=== PATIENT | female | born 1965 | race Caucasian/White ===

== ENCOUNTER → 2019-10-15 11:44 | Outpatient (BNVA) | payer MEDICARE, SELFPAY | PROVIDERS: Visit Provider Family Medicine | DX: K52.9 Noninfective gastroenteritis and colitis, unspecified (principal) | CPT/HCPCS: 80048 ==

== ENCOUNTER 2019-11-17 11:54 | Outpatient (CLI) | payer MEDICARE, SELFPAY ==
--- NOTE | 2019-11-17 12:07 | XR_ITS ---
WS: [id number] RIGHT SHOULDER: 3 VIEW(S) TECHNIQUE: Internal and external rotation with Y view. HISTORY: right shoulder pain COMPARISON: None available. No fracture or dislocation or soft tissue abnormality. Very mild early erosive and lytic changes involving the distal clavicle. Mild narrowing of the joint space. XR/XR shoulder RT min 2V* [id number] IMPRESSION: Mild AC joint degenerative changes.
== END 2019-11-17 11:55 | disposition home or self-care (01) ==
LOC: RADWPI 12:00
PROVIDERS: PCP Family Medicine; Visit Provider Family Medicine
DX: M25.511 Pain in right shoulder (principal)
CPT/HCPCS: 73030

== ENCOUNTER → 2019-12-17 11:48 | Outpatient (BNVA) | payer MEDICARE, SELFPAY | PROVIDERS: PCP Family Medicine; Visit Provider Family Medicine | DX: M62.838 Other muscle spasm (principal) | CPT/HCPCS: 80048 ==

== ENCOUNTER → 2020-03-29 11:31 | Outpatient (BNVA) | payer MEDICARE, SELFPAY | PROVIDERS: PCP Family Medicine; Visit Provider Nurse Practitioner Family | DX: J06.9 Acute upper respiratory infection, unspecified (principal); R53.83 Other fatigue; Z20.828 Contact with and (suspected) exposure to other viral communicable diseases | CPT/HCPCS: 87635 ==

== ENCOUNTER → 2020-07-14 15:35 | Outpatient (BNVA) | payer MEDICARE, SELFPAY | PROVIDERS: PCP Family Medicine; Visit Provider Family Medicine | DX: R10.11 Right upper quadrant pain (principal); R07.89 Other chest pain | CPT/HCPCS: 71046 ==

== ENCOUNTER 2020-07-24 19:27 | Observation (INO) | payer MEDICARE, SELFPAY ==
[2020-07-24] VITALS (8 sets, daily range): BP systolic 112–158; BP diastolic 62–88; PULSE 65–107; RESP 14–23; TEMP 36.3; O2SAT 96–98; BMI 30.1
--- NOTE | 2020-07-24 19:38 | XRR_ITS ---
PROCEDURE INFORMATION: Exam: XR Chest, 1 View Exam date and time: 07/24/2020 7:49 PM Age: 54 years old Clinical indication: Left-sided chest pain TECHNIQUE: Imaging protocol: XR of the chest Views: 1 view. COMPARISON: CR XR chest 2V* [id number] 07/14/2020 3:40 PM FINDINGS: Lungs: There is minimal streaky opacity at the right lung base. Pleural space: Unremarkable. No pleural effusion. No pneumothorax. Heart/Mediastinum: There is a benign left pericardial fat pad also seen on the prior study. Vasculature: There are incidental benign calcified granulomas versus vessels seen en face at the perihilar regions. Bones/joints: Unremarkable. XR/XR chest 1V portable [id number] IMPRESSION: Minimal streaky opacity at the right lung base is nonspecific. Differential includes atelectasis and pneumonia.
--- NOTE | 2020-07-24 19:39 | ED_ITS ---
HPI - Chest Pain General: Chief Complaint: Chest Pain Stated Complaint: L shoulder,neck,jaw pain,SOB Time Seen by Provider: 07/24/20 19:32 Source: patient Limitations: no limitations History of Present Illness: HPI narrative: Emelia is a very nice 54-year-old female who comes in with a complaint of chest pressure and sharp pain in her left shoulder, jaw, neck and arm. Patient states she had mild symptoms yesterday. Today her onset was while she was eating supper. She states the pain is an 8 out of 10. She has associated shortness of breath and nausea. Since the pain started tonight it has been constant and waxes and wanes in intensity. She states her symptoms are made worse by exertion and slightly better with rest. Patient's not tried anything else for her symptoms. Patient states she had similar symptoms yesterday but they were not as severe and lasted a very short amount time. Patient does admit to being a smoker and having a strong family history of heart disease. Associated symptoms: Reports dyspnea and nausea; Deny abdominal pain, diaphoresis, fever(s), palpitations, syncope or vomiting Review of Systems Const: Denies: fever(s), chills, body aches, fatigue, malaise or diaphoresis Eyes: Denies: change in vision, blurry vision, photophobia, eye discomfort, eye discharge, eye redness or yellow eyes ENMT: Denies: throat pain, odynophagia, hoarseness, swelling of lips/tongue, ear or mastoid pain, ear discharge, change in hearing or nasal discharge Card: Denies: palpitations, irregular heart rhythm, edema, lightheadedness, syncope, pre-syncope or orthopnea Resp: Reports: dyspnea; Denies: productive cough, non-productive cough, wheezing, hemoptysis or chest congestion GI: Reports: nausea; Denies: abdominal pain, vomiting, hematemesis, coffee ground emesis, heartburn, diarrhea, constipation, GI cramping, hematochezia or melena : Denies: flank pain, dysuria, urinary frequency, urinary urgency or hematuria Musc: Reports: neck pain; Denies: back pain, extremity pain, extremity swelling, joint pain, joint swelling, joint redness, joint warmth or joint stiffness Skin/Breast: Denies: rash, pruritus, erythema, skin pain or skin tenderness Neuro: Denies: headache(s), numbness in extremities, weakness in extremities, sensory changes, lack of coordination, difficulty walking, dizziness, vertigo, confusion, Slurred speech present or seizure-like activity Matt/Lymph: Denies: easy bruising, easy bleeding, petechiae, purpura or enlarged lymph nodes All/Imm: Denies: urticaria, throat swelling, tongue swelling, facial swelling or acute wheezing PFSH ED PFSH: Medical History (Updated 07/24/20 @ 21:01 by Lula Dallas) Chronic cystitis with hematuria Chronic diarrhea Cindi's thyroiditis History of renal stone Inflammatory bowel disease Insomnia Major depressive disorder Muscle cramps Nasal polyps Osteoarthritis PTSD (post-traumatic stress disorder) Surgical History H/O section H/O tubal ligation H/O: hysterectomy History of appendectomy History of bilateral breast reduction surgery Family History Other CAD (coronary artery disease) Cancer Diabetes Multiple sclerosis Social History Smoking and tobacco status: current every day smoker cigarettes Packs smoked per day: 1 Alcohol intake: current Alcohol intake frequency: holidays/special occasions only History of recent travel: No Physical Exam Const: COMMON NORMALS: no acute distress, patient oriented x3, no limitations and alert GENERAL APPEARANCE: cooperative HENMT: COMMON NORMALS: normocephalic, atraumatic, external ears normal, EAC's normal and Normal external nose present HEAD & SCALP: normal to inspection, normocephalic and atraumatic FACE & SINUS: normal facial exam and face symmetric NOSE: Normal external nose present and Normal nares present EXTERNAL EAR: Yes external ears normal EXTERNAL AUDITORY CANAL: EAC's normal MOUTH: Normal oral and palatal mucosa present, lip normal and tongue normal Eye: COMMON NORMALS: Equal, round and reactive pupils present and conjunctivae normal GENERAL EYE: appearance normal, both eyes and all related structures ALIGNMENT: Yes alignment normal PERIORBITAL: periorbital findings normal EYELID: eyelids normal CONJUNCTIVA: Yes conjunctivae normal SCLERA: sclerae normal PUPIL: Yes Equal, round and reactive pupils present Neck/C-Spine: COMMON NORMALS: full ROM, no lymphadenopathy, supple, no meningeal signs and no JVD GENERAL: Yes normal visual inspection and Yes trachea midline Chest: COMMONS NORMALS: normal inspection of the chest and normal palpation of entire chest wall Resp: COMMON NORMALS: normal respiratory effort, No retractions, No use of accessory muscles and clear to auscultation bilaterally EFFORT & INSPECTION: Yes able to speak in complete sentences and Yes symmetric chest movement AUSCULTATION: clear to auscultation bilaterally, no crackles, no rales, no rhonchi and no wheezes Cardio: COMMON NORMALS: no JVD, regular rate, regular rhythm, S1 normal heart sound present and S2 normal heart sound present RATE: regular rate RHYTHM: regular rhythm HEART SOUNDS: S1 normal heart sound present, S2 normal heart sound present, no click, no gallops, no murmurs and no rubs GI: COMMON NORMALS: Soft to palpation and No hepatosplenomegaly present PALPATION: Yes Soft to palpation, No Tenderness to palpation present (GI), No Guarding due to palpation present (GI), No Rigid due to palpation, Yes No hepatosplenomegaly present, No Hernia present, No Palpable mass present and No Pulsatile mass present : COMMON NORMALS: Yes no CVA tenderness BLADDER/KIDNEY EXAM: Yes no CVA tenderness EXTERNAL FEMALE EXAM: No Hernia present Back/Pelvis: COMMON NORMALS: no CVA tenderness, thoracic and lumbar spine normal to inspection, no thoracic nor lumbar tenderness and thoraco-lumbar ROM normal Extremity: COMMON NORMALS: normal to inspection, full ROM, capillary refill normal, no joint enlargement, no clubbing, cyanosis or edema and no calf tenderness Neuro: COMMON NORMALS: patient oriented x3, CN's II-XII intact bilaterally, moves all extremities, no focal motor deficits and no sensory deficits noted SENSORIUM/ORIENTATION: Yes alert MENINGEAL SIGNS: Yes no meningeal signs SPEECH: speech normal Psych: COMMON NORMALS: mental status grossly normal, Normal thought process present, cooperative, normal affect, speech normal and activity/motor behavior normal SPEECH: Yes normal speech THOUGHT PROCESS: Normal thought process present Skin: COMMON NORMALS: no rashes or lesions noted, turgor normal, no jaundice, no petechiae and no mottling GENERAL SKIN EXAM: no rashes or lesions noted and turgor normal Course Vital Signs: Vital signs: Vital Signs Temperature 97.3 F L 07/24/20 19:31 Pulse Rate 91 07/24/20 20:20 Respiratory Rate 18 07/24/20 20:20 Blood Pressure 117/87 07/24/20 20:20 Pulse Oximetry 96 07/24/20 20:20 MDM - Chest Pain MDM Narrative: Medical decision making narrative: The patient is had chest pain relief with a combination of aspirin, 3 sublingual nitroglycerin, Nitropaste and 4 of morphine. Patient has a Heart Score of 5. She has a strong family history of early onset heart disease and she is a smoker. She denies hypertension, diabetes or hyperlipidemia. Based upon the patient's new symptoms over the past 2 days this could represent unstable angina. The case was endorsed to Dr. Dye he agrees to go ahead and admit for further evaluation and care. Patient does not have any evidence of pneumonia on her chest x-ray and her symptoms do not suggest an esophageal rupture. Patient's not tachycardic, hypoxic or any other signs or symptoms to suggest pulmonary embolism and there is no migration of her pain or ripping tearing sensation to suggest aortic dissection. I believe acute coronary symptoms most likely issue at this time the patient can be further ruled out and risk stratified on an inpatient basis. Lab Data: Attestation: I reviewed the patient's lab results. Labs: Lab Results 07/24/20 07/24/20 07/24/20 Range/Units 19:44 19:44 19:44 WBC 12.8 H (4.0-10.0) 10^3/ uL RBC 4.57 (4.1-5.3) 10^6/u L Hgb 14.5 (11.5-15.3) g/dL Hct 42.3 (37.0-47.0) % MCV 92.6 (81-99) fL MCH 31.7 (28.0-34.0) pg MCHC 34.3 (30.0-36.0) g/dL RDW 11.8 L (12.1-15.1) % Plt Count 314 (130-400) 10^3/c mm MPV 11.1 H (7.4-10.4) fL Neut % (Auto) 61.7 % Lymph % (Auto) 26.2 % [place] % (Auto) 6.6 % Eos % (Auto) 4.1 % Baso % (Auto) 1.0 % Neut # (Auto) 7.91 H (1.8-7.7) 10^3/u L Lymph # (Auto) 3.4 (0.8-4.8) 10^3/u L [place] # (Auto) 0.9 (0.2-0.9) 10^3/u L Eos # (Auto) 0.5 (0.0-0.8) 10^3/u L Baso # (Auto) 0.1 (0.0-0.1) 10^3/u L Nucleated RBC % (a uto) 0 % Nucleated RBCs # 0.0 /100WBC PT 12.70 (12.1-14.9) SECO NDS INR 0.92 (0.8-1.2) Sodium 141 (136-145) mmol/L Potassium 3.7 (3.5-5.1) mmol/L Chloride 104 (98-107) mmol/L Carbon Dioxide 26 (22-29) mmol/L Anion Gap 14.7 (5-19) BUN 10 (6-20) mg/dL Creatinine 0.6 (0.5-0.9) mg/dL GFR Calculation 103.4 (90-130) mL/min Glucose 96 (65-115) mg/dL Calculated Osmolal ity 291 (285-295) mOsm/k g Calcium 9.7 (8.5-10.5) mg/dL Magnesium 1.7 (1.7-2.3) mg/dL Total Bilirubin 0.2 (0.15-1.2) mg/dL AST 13 (0-32) U/L ALT 14 (0-33) U/L Alkaline Phosphata se 109 H (35-105) IU/L Troponin T Baselin e (0-10) ng/L Total Protein 6.6 (6.6-8.7) g/dL Albumin 4.1 (3.5-5.2) g/dL Globulin 2.5 (1.3-4.6) g/dL Lipase 81 H (13-60) U/L Urine Color (Yellow) Urine Appearance (CLEAR) Urine pH (5-7) Ur Specific Gravit y (1.005-1.030) Urine Protein (Negative) Urine Glucose (UA) (Normal) Urine Ketones (Negative) Urine Blood (Negative) Urine Nitrate (Negative) Urine Bilirubin (Negative) Urine Urobilinogen (Negative) mg/dL Ur Leukocyte Alejandirna ase (Negative) Urine RBC (0-2) /hpf Urine WBC (0-5) /hpf Ur Squamous Epith Cells (0-5) /hpf Amorphous Sediment Urine Bacteria (NONE) /hpf Urine Mucus /hpf 07/24/20 07/24/20 Range/Units 19:44 19:44 WBC (4.0-10.0) 10^3/ uL RBC (4.1-5.3) 10^6/u L Hgb (11.5-15.3) g/dL Hct (37.0-47.0) % MCV (81-99) fL MCH (28.0-34.0) pg MCHC (30.0-36.0) g/dL RDW (12.1-15.1) % Plt Count (130-400) 10^3/c mm MPV (7.4-10.4) fL Neut % (Auto) % Lymph % (Auto) % [place] % (Auto) % Eos % (Auto) % Baso % (Auto) % Neut # (Auto) (1.8-7.7) 10^3/u L Lymph # (Auto) (0.8-4.8) 10^3/u L [place] # (Auto) (0.2-0.9) 10^3/u L Eos # (Auto) (0.0-0.8) 10^3/u L Baso # (Auto) (0.0-0.1) 10^3/u L Nucleated RBC % (a uto) % Nucleated RBCs # /100WBC PT (12.1-14.9) SECO NDS INR (0.8-1.2) Sodium (136-145) mmol/L Potassium (3.5-5.1) mmol/L Chloride (98-107) mmol/L Carbon Dioxide (22-29) mmol/L Anion Gap (5-19) BUN (6-20) mg/dL Creatinine (0.5-0.9) mg/dL GFR Calculation (90-130) mL/min Glucose (65-115) mg/dL Calculated Osmolal ity (285-295) mOsm/k g Calcium (8.5-10.5) mg/dL Magnesium (1.7-2.3) mg/dL Total Bilirubin (0.15-1.2) mg/dL AST (0-32) U/L ALT (0-33) U/L Alkaline Phosphata se (35-105) IU/L Troponin T Baselin e 8 (0-10) ng/L Total Protein (6.6-8.7) g/dL Albumin (3.5-5.2) g/dL Globulin (1.3-4.6) g/dL Lipase (13-60) U/L Urine Color Yellow (Yellow) Urine Appearance Clear (CLEAR) Urine pH 6 (5-7) Ur Specific Gravit y 1.020 (1.005-1.030) Urine Protein Neg (Negative) Urine Glucose (UA) Norm (Normal) Urine Ketones Negative (Negative) Urine Blood 2+ H (Negative) Urine Nitrate Negative (Negative) Urine Bilirubin Neg (Negative) Urine Urobilinogen Norm (Negative) mg/dL Ur Leukocyte Alejandrina ase Negative (Negative) Urine RBC 10-15 H (0-2) /hpf Urine WBC 0-4 H (0-5) /hpf Ur Squamous Epith Cells 0-4 H (0-5) /hpf Amorphous Sediment Not Reportable Urine Bacteria Trace (NONE) /hpf Urine Mucus Trace /hpf Imaging Data^: CXR: Attestation: I personally reviewed and interpreted this imaging study as follows: My impression: No acute cardiopulmonary findings. EKG Data^: EKG 1: Attestation: I personally reviewed and interpreted this EKG as follows: EKG interpretation date: 07/24/20 EKG interpretation time: 19:34 Interpretation: Normal sinus rhythm at 85 beats a minute, no blocks, normal intervals, nonspecific ST-T wave changes inferiorly and in V4 through V6. Discharge Plan Discharge Patient Disposition: Placed in Observation Clinical Impression: Unstable angina pectoris Condition: Stable Prescriptions: No Action albuterol sulfate [ProAir HFA] 90 mcg/actuation HFA aerosol inhaler 2 puff INHALATION Q6H PRN (Reason: shortness of breath or wheezing) Qty: 8.5 RF: 0 cetirizine-pseudoephedrine [Zyrtec-D] 5-120 mg tablet extended release 12 hr 1 tab PO .ONCE DAILY Qty: 30 RF: 0 levothyroxine [Synthroid] 125 mcg tablet 125 mcg PO DAILY RF: 0 estradiol 0.5 mg tablet 0.5 mg PO DAILY RF: 0 baclofen 10 mg tablet 10 mg PO TID RF: 0 Zyrtec 10 mg capsule 10 mg PO DAILY RF: 0 triamcinolone acetonide [Nasacort] 55 mcg aerosol,spray 1 spray INTRANASAL DAILY RF: 0 trazodone 150 mg tablet 100 mg PO .AT BEDTIME RF: 0 Referrals: Dayana Joshua DO [Primary Care Provider] - Coding Level of Care Code ED Travel Coordinator for Chg Fwd Exam Comprehensive
--- NOTE | 2020-07-24 19:39 | ECG_ITS ---
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 Measurements Intervals [place] Rate: 85 P: 66 LA: 143 QRS: -9 QRSD: 99 T: 57 QT: 362 QTc: 431 Interpretive Statements SINUS RHYTHM INCOMPLETE RIGHT BUNDLE BRANCH BLOCK [90+ ms QRS DURATION, TERMINAL R IN V1/V2, 40+ ms S IN I/aVL/V4/V5/V6] No previous ECG available for comparison Electronically Signed On 07-25-2020 16:50:22 ELECTRICIAN ELEVATOR MAINTENANCE by Cristhian Hook M.D. [id number]
[2020-07-24] MEDS: aspirin 325 mg Tablet PO (19:48)
[2020-07-24] MEDS: nitroglycerin 0.4 mg sublingual Tablet SUBLINGUAL ×3 (19:49→20:11)
[2020-07-24 19:55] LABS: Basophils # 0.1 10^3/uL (0.0-0.1); Eosinophils # 0.5 10^3/uL (0.0-0.8); Eosinophils % 4.1 %; Hematocrit 42.3 % (37.0-47.0); Hemoglobin 14.5 g/dL (11.5-15.3); Lymphocytes # 3.4 10^3/uL (0.8-4.8); Lymphocytes % 26.2 %; Mean Corpuscular HGB Conc 34.3 g/dL (30.0-36.0); Mean Corpuscular Hemoglobin 31.7 pg (28.0-34.0); Mean Corpuscular Volume 92.6 fL (81-99); Mean Platelet Volume 11.1 fL (7.4-10.4); Monocytes # 0.9 10^3/uL (0.2-0.9); Monocytes % 6.6 %; Neutrophils # 7.91 10^3/uL (1.8-7.7); Neutrophils % 61.7 %; Nucleated Red Blood Cells % 0 %; Platelet Count 314 10^3/cmm (130-400); Red Blood Count 4.57 10^6/uL (4.1-5.3); Red Cell Distribution Width 11.8 % (12.1-15.1); White Blood Count 12.8 10^3/uL (4.0-10.0)
[2020-07-24 20:04] LABS: INR 0.92 (0.8-1.2)
[2020-07-24] MEDS: ondansetron 2 mg/ML SDV 2 mL 4 MG IVP ×3 (20:06→23:37)
[2020-07-24 20:14] LABS: Bilirubin Urine Neg (Negative); Blood Urine 2+ (Negative); Glucose Urine UA Norm (Normal); Ketones Urine Negative (Negative); Leukocyte Esterase Urine Negative (Negative); Nitrate Urine Negative (Negative); Protein Urine Neg (Negative); Urine Appearance Clear (CLEAR); Urine Color Yellow (Yellow); Urobilinogen Urine Norm (Negative); pH Urine 6 (5-7)
[2020-07-24 20:15] LABS: Add Urine Microscopic? YES; Alanine Aminotransferase 14 U/L (0-33); Albumin Level 4.1 g/dL (3.5-5.2); Alkaline Phosphatase 109 IU/L (35-105); Anion Gap 14.7 (5-19); Aspartate Amino Transferase 13 U/L (0-32); Blood Urea Nitrogen 10 mg/dL (6-20); Calcium 9.7 mg/dL (8.5-10.5); Carbon Dioxide 26 mmol/L (22-29); Chloride 104 mmol/L (98-107); Globulin 2.5 g/dL (1.3-4.6); Glomerular Filtration Rate 103.4 mL/min (90-130); Glucose 96 mg/dL (65-115); Lipase 81 U/L (13-60); Magnesium 1.7 mg/dL (1.7-2.3); Osmolality Calculated 291 mOsm/kg (285-295); Potassium 3.7 mmol/L (3.5-5.1); Sodium 141 mmol/L (136-145); Total Bilirubin 0.2 mg/dL (0.15-1.2); Total Protein 6.6 g/dL (6.6-8.7); WBC Urine 0-4 /hpf (0-5)
[2020-07-24 20:16] LABS: Bacteria Urine TRACE /hpf; Mucus Urine TRACE /hpf; Squamous Epithelial Cell Urine 0-4 /hpf (0-5); Troponin(5th) Baseline 8 ng/L (0-10)
[2020-07-24 20:17] LABS: Add Urine Culture? Yes
[2020-07-24] MEDS: morphine 4 mg/mL SDV 1 mL IVP (20:52)
--- NOTE | 2020-07-24 20:56 | PM.HP ---
Providers/Chief Complaint Primary Care Provider: Dayana Joshua DO Chief Complaint: L shoulder,neck,jaw pain,SOB History of Present Illness Emelia Etienne is a 54 year old female who does not have previous history of coronary disease presented today with chief complaint of chest pain. Patient is stating that after her dinner at around 6 PM she started experiencing left-sided chest discomfort which she initially attributed to feeling fatigued and overworked. She was on her way back from [place] to [place] when her symptoms started getting worse and she decided to come to the hospital for further evaluation, she is describing her chest pain as pressure-like sensation which lasted for about more than an hour and got relieved with nitro, morphine and aspirin given in the ER, this pain was radiating towards her left side of jaw, left arm she also noted some numbness and tingling of left hand, did experience diaphoresis without any nausea or vomiting, she also noticed some shortness of breath with it. Diagnosis in the ER revealed mild leukocytosis normal hemodynamics, normal BMP chest x-ray unremarkable, troponin not significantly high EKG showing nonspecific ST changes V4 to V6 otherwise patient did not complain of any chest pain at the time of my evaluation heart rate 72 blood pressure 112/60 mmHg, she was given loading dose of aspirin, 4 mg of morphine and Zofran 4 mg Second troponin and EKG is pending Review of Systems Const: Reports: body aches and fatigue; Denies: fever(s) Eyes: Denies: change in vision ENMT: Denies: throat pain Card: Reports: chest pain and dyspnea on exertion; Denies: pre-syncope or orthopnea Resp: Reports: dyspnea; Denies: non-productive cough or pain on inspiration GI: Reports: diarrhea; Denies: abdominal pain, nausea or constipation : Denies: flank pain Musc: Denies: neck pain Skin/Breast: Denies: rash Neuro: Denies: headache(s) Psych: Reports: anxiety Endo: Denies: polyuria Matt/Lymph: Denies: easy bruising All/Imm: Denies: urticaria Medications/Allergies Home Medications Medication Instructions Recorded Confirmed Last Taken Type baclofen 10 mg tablet 10 mg PO TID 10/15/19 07/14/20 Unknown History cetirizine 10 mg capsule 10 mg PO DAILY 10/15/19 07/14/20 Unknown History estradiol 0.5 mg tablet 0.5 mg PO DAILY 10/15/19 07/14/20 Unknown History levothyroxine 125 mcg tablet 125 mcg PO DAILY 10/15/19 07/14/20 Unknown History triamcinolone acetonide 55 mcg 1 spray INTRANASAL DAILY 10/15/19 07/14/20 Unknown History nasal spray aerosol albuterol sulfate 90 mcg/actuation 2 puff INHALATION Q6H PRN #8.5 gm 11/17/19 07/14/20 Unknown Rx aerosol inhaler cetirizine 5 mg-pseudoephedrine ER 1 tab PO .ONCE DAILY #30 tab 01/14/20 07/14/20 Unknown Rx 120 mg tablet,extended release,12hr trazodone 150 mg tablet 100 mg PO .AT BEDTIME tab 07/14/20 07/14/20 Unknown History Allergies Allergy/AdvReac Type Severity Reaction Status Date / Time codeine Allergy Mild ITCHING Verified 07/14/20 14:58 fluticasone AdvReac Mild UNKNOWN Verified 03/29/20 10:10 ketorolac [From Toradol] AdvReac Mild UNKNOWN Verified 03/29/20 10:10 midazolam [From Versed] AdvReac Mild UNKNOWN Verified 03/29/20 10:10 Penicillins AdvReac Mild UNKNOWN Verified 03/29/20 10:10 PFSH Acute PFSH: Medical History Chronic cystitis with hematuria Chronic diarrhea Cindi's thyroiditis History of renal stone Inflammatory bowel disease Insomnia Major depressive disorder Muscle cramps Nasal polyps Osteoarthritis PTSD (post-traumatic stress disorder) Surgical History H/O section H/O tubal ligation H/O: hysterectomy History of appendectomy History of bilateral breast reduction surgery Family History Other CAD (coronary artery disease) Cancer Diabetes Multiple sclerosis Social History Smoking and tobacco status: current every day smoker cigarettes Packs smoked per day: 1 Alcohol intake: current Alcohol intake frequency: holidays/special occasions only History of recent travel: No Vitals/I&O/Wt Last Vital Signs Temp 97.3 F L 07/24/20 19:31 Pulse 91 07/24/20 20:20 Resp 18 07/24/20 20:20 BP 117/87 07/24/20 20:20 Pulse Ox 96 07/24/20 20:20 Weight last 48 hrs Weight 77.111 kg Physical Exam Narrative: EXAM NARRATIVE: Pleasant middle-age female who appears stated age Well-hydrated, No active chest pain or shortness of breath S1, S2 no murmur appreciated no signs of heart failure No acute respiratory distress bilateral adequate breath sound without adventitious rhonchi or crackles EOMI, PERRLA No neurological deficit GCS 15 awake alert oriented x3 Abdomen soft, distended, obese obesity, hyperactive bowel sounds Lower extremity no edema gangrene or ulcer Data : 07/24/20 19:44 07/24/20 19:44 A&P Assessment and plan (1) Unstable angina pectoris: Unstable angina Multiple risk factors for coronary disease active smoker, family history Father had RI at age 65, age, Moderate risk factors, Currently no active chest pain EKG is not showing ST segment elevation RI, nonspecific ST changes V4 to V6 First troponin unremarkable I waiting for second troponin and EKG, she is hemodynamically stable, I would request Lexiscan stress test to rule out coronary ischemia, echo in the morning to see wall motion abnormality Low risk for PE therefore will request D-dimer Status: Acute Additional A&P Information Microscopic colitis: No acute flareup, patient does endorse that she bleeds excessively with use of NSAIDs compared Hypothyroid: Check TSH continue levothyroxine 25 mcg, Nicotine dependence, smokes 1 pack/day counseled on smoking cessation, she is ready to try nicotine replacement therapy Full code N.p.o. after midnight and start cardiac diet after Lexiscan stress test DVT prophylaxis Lovenox Attestations Medical Necessity Statement*: Anticipating discharge in less than 48 hours will need lexiscan stress test rule coronary ischemia for her chest pain Time Spent in Patient Care: (>than 50% of time spent in counselling and/or direct pt care on unit). 50mins Coding Level of Care Code Acute Die Machine Operator for Luis Weaver Diagnoses Unstable angina pectoris I20.0
--- NOTE | 2020-07-24 22:36 | ECG_ITS ---
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 Interpretive Statements NAME OF STUDY: LEXISCAN SESTAMIBI STRESS TEST INDICATION: Angina PROCEDURE: At the baseline, the blood pressure was 130/85 mmHg, oxygen saturation 94% with a heart rate of 66 beats per. The electrocardiogram showed normal sinus rhythm, normal axis with nonspecific ST-T wave changes and possible old septal infarct. The Lexiscan was infused over a period of 20 seconds. A total of 0.4 milligrams of Lexiscan was infused. The stress phase was continued for a total of 5 minutes. Heart rate at the end of the stress phase was 87 bpm, oxygen saturation 94% with a blood pressure 137/80 mmHg. The EKG at the peak infusion revealed no significant ST-T wave changes. Sestamibi was injected 20 seconds after the Lexiscan infusion. Blood pressure at the end of the recovery phase was 129/73 mmHg, oxygen saturation 94% with a heart rate of 87 beats per minute. CONCLUSION: 1. No significant EKG changes with the LexiScan infusion. 2. No LexiScan induced chest pain or cardiac arrhythmia. 3. Normal blood pressure and heart rate response. 4. Sestamibi/sestamibi perfusion scan pending; see separate report. Electronically Signed On 07-25-2020 15:52:20 GEEK SQUAD AGENT by Hilda Up M.D. [id number]
[2020-07-24] MEDS: lidocaine 2% viscous 15 ML, aluminum-mag hydrox-simethicon 30 ML, sucralfate oral liq 1 GM PO (23:21)
[2020-07-24] MEDS: sodium chloride 0.9% 1,000 ML 100 ML IV (23:22)
[2020-07-24] MEDS: enoxaparin 40 mg/0.4 mL Syringe SUBCUT (23:22)
[2020-07-24 23:33] LABS: Chol HDL Ratio 7.59 mg/dL (0.0-4.40); Cholesterol 220 mg/dL (0-200); HDL Cholesterol 29 mg/dL (60-100); LDL Cholesterol Calculated 123 mg/dL (50-129); LDL HDL Ratio 4.24 RATIO (0.00-3.22); Thyroid Stimulating Hormone 0.01 uIU/mL (0.27-4.20); Triglycerides 339 mg/dL (0-150)
--- NOTE | 2020-07-24 23:35 | PC.NURSE ---
PT ARRIVED TO ROOM 111-2 FROM ED. PT DENIES CP AT THIS TIME. PT C/O PAIN IN THE LEFT SHOULDER NON RADIATING. PT WAS ORIENTATED TO ROOM. PT WAS GIVEN GI COCKTAIL FOR UPSET STOMACH. PT HAD N/V ABOUT 5 MINUTES LATER. RN NURSE GAVE 2MG ZOFRAN IVP FOR N/V. PT HAD ABOUT 300ML EMESIS. WILL CONTINUE TO MONITOR.
[2020-07-25] VITALS (13 sets, daily range): BP systolic 119–140; BP diastolic 72–85; PULSE 65–87; RESP 12–21; TEMP 36.3–36.6; O2SAT 96–98
[2020-07-25] MEDS: albuterol 8 gm MDI 2 PUFF INHALATION ×2 (01:30→09:17)
[2020-07-25] MEDS: morphine 4 mg/mL SDV 1 mL 2 MG IVP (01:32)
--- NOTE | 2020-07-25 01:39 | ECG_ITS ---
[facility] Test Date: 2020-07-25 Pat Name: Emelia Etienne Department: Room: 111 Gender: Female Porcelain Technician: : 1965 Requested By: Lula Islas Order Number: [id number] Benitez MD: Cristhian Hook M.D. Measurements Intervals [place] Rate: 71 P: 72 MS: 142 QRS: 23 QRSD: 94 T: 53 QT: 397 QTc: 434 Interpretive Statements SINUS RHYTHM Compared to ECG 07/24/2020 19:34:13 Incomplete right bundle-branch block no longer present Electronically Signed On 07-25-2020 17:02:49 INVESTIGATIONS CONSULTANT by Cristhian Hook M.D. [id number]
[2020-07-25 03:09] LABS: Basophils # 0.1 10^3/uL (0.0-0.1); Basophils % 0.7 %; Eosinophils # 0.5 10^3/uL (0.0-0.8); Eosinophils % 3.9 %; Hematocrit 40.4 % (37.0-47.0); Hemoglobin 13.8 g/dL (11.5-15.3); Lymphocytes # 3.5 10^3/uL (0.8-4.8); Mean Corpuscular HGB Conc 34.2 g/dL (30.0-36.0); Mean Corpuscular Hemoglobin 31.8 pg (28.0-34.0); Mean Corpuscular Volume 93.1 fL (81-99); Mean Platelet Volume 11.1 fL (7.4-10.4); Monocytes # 0.8 10^3/uL (0.2-0.9); Monocytes % 6.7 %; Neutrophils # 7.14 10^3/uL (1.8-7.7); Neutrophils % 59.2 %; Nucleated Red Blood Cells % 0 %; Platelet Count 296 10^3/cmm (130-400); Red Blood Count 4.34 10^6/uL (4.1-5.3); Red Cell Distribution Width 11.8 % (12.1-15.1); White Blood Count 12.1 10^3/uL (4.0-10.0)
[2020-07-25 03:44] LABS: Anion Gap 12.1 (5-19); Blood Urea Nitrogen 12 mg/dL (6-20); Calcium 9.6 mg/dL (8.5-10.5); Carbon Dioxide 30 mmol/L (22-29); Chloride 103 mmol/L (98-107); Glomerular Filtration Rate 103.4 mL/min (90-130); Glucose 112 mg/dL (65-115); Osmolality Calculated 293 mOsm/kg (285-295); Potassium 4.1 mmol/L (3.5-5.1); Sodium 141 mmol/L (136-145)
[2020-07-25 03:45] LABS: Troponin 5 6HR 8.81 ng/L (0-10); Troponin 5 6HR Delta 0.81 ng/L (0-12)
--- NOTE | 2020-07-25 04:57 | PC.NURSE ---
PT DENIES CP. RATE LEFT SHOULDER PAIN A 2/10. PT STATES THAT SHE IS TIRED AND HAS ONLY SLEPT 45 MINUTES. PT C/O OTHER PT THAT IS COUGHING IN THE ROOM NEXT DOOR. PT STATES THAT SHE WANTS A BACLOFEN AND IF WE CAN'T GIVE IT TO HER THEN SHE WANTS TO GO HOME. DR QUIROS WAS NOTIFIED. WILL CONTINUE TO MONITOR.
[2020-07-25] MEDS: baclofen 10 mg Tablet PO ×2 (06:48→15:30)
[2020-07-25] MEDS: pantoprazole DR 40 mg Tablet PO (08:48)
[2020-07-25] MEDS: levothyroxine 100 mcg Tablet PO (08:48)
--- NOTE | 2020-07-25 09:33 | PC.CHAP ---
Pastoral Care Encounter/Spiritual Assessment Type of Contact [] Declined dag sprayer visit [] Patient/Family/Request visit [] Outpatient visit [] Follow-up visit [] Physician referral [] Code/Alert [x] Routine visit [] Staff referral [] Actively dying [] Patient sleeping [] Family support [] [] Out of room [] Palliative care [] [] Receiving care in room [] Pre-surgical visit [] Trauma [] Long length of stay [] ICU visit [] Other: Relational/Emotional Strength [] Patient feels connected with others/family/visitors/staff [] Distress [] Loneliness/isolation [] Abandonment Spirituality of Patient [] Person of Zaina [] Attends Lutheran of their Zaina [] Believes in Prayer [] Reads Bible or Methodist materials [] There are Spiritual issues to be addressed 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 Pump 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 Interventions [x] Prayer [x] Active listening [x] Non-anxious presence [x] Spiritual/emotional support [] Crisis/trauma care [] Spiritual counseling [] Bereavement support [] Provided bereavement packet [] Provided Bible/devotional materials [] Provided toy/stuffed animal, coloring book to patient or family member [] Provided Communion [] Anointing/Frost [] Salvation [x] Completed spiritual assessment [] Other: Impact on Illness or Injury [] Angry [] Fearful [] Anxious [] Often cries [] Exhaustion [] Unable to work [] Unable to attend taoism [] Unable to walk/stand [] Unable to read [] Unable to drive [] Unable to eat/drink [] Unable to sleep [] Unable to be with family [] Patient intubated [] Other: Summary pain not as severe, still not resting comfortable Time spent with patient 5 min
[2020-07-25] MEDS: regadenoson 0.4 Mg/5 ml Syringe IVP (13:10)
[2020-07-25 14:15] LABS: D Dimer 0.35 ug/mIFEU (0-0.59)
--- NOTE | 2020-07-25 15:33 | PC.NURSE ---
spoke with Dr blanco with patient concerns of not eating this shift due to testing instructions received to start patient on cardiac diet order placed and patient provided with sandwich until next hot meal.
--- NOTE | 2020-07-25 16:32 | PM.DCS ---
Discharge Providers Date of Admission: 07/24/20 20:58 Date of Discharge: July 25, 2020 Attending Provider at Admission: Pretty Dye MD Attending Provider at Discharge: Andrew Lyons MD Primary Care Provider: Dayana Joshua DO Diagnoses at Discharge Discharge Diagnosis (1) Unstable angina pectoris: Status: Acute Reason for Visit Reason for Visit: L shoulder,neck,jaw pain,SOB Hospital Course Hospital Course This is a 54-year-old female with a past medical history of microscopic colitis, hypothyroidism, active smoker, major depressive disorder, who presents to [facility] due to complaints of chest pain Patient was admitted to [facility] for chest pain, her troponin series did not show a significant delta troponin, EKG no acute ST-T wave changes, cardiac echo showed an showed an EF of 64%, no regional wall motion abnormalities, grade 1 out of 4 diastolic dysfunction, mild LVH. Nuclear stress test showed, low probability of obstructive CAD. Patient remained chest pain-free, advised to quit smoking, discharged on aspirin, statin, with close follow up with general physician in 1 to 2 weeks. In addition her TSH was 0.01 on admission, levothyroxine dose was reduced 200 mcg daily. Physical Exam Const: COMMON NORMALS: no acute distress and patient oriented x3 HENMT: COMMON NORMALS: normocephalic HEAD & SCALP: normocephalic Neck/C-Spine: COMMON NORMALS: no JVD Resp: COMMON NORMALS: normal respiratory effort, No retractions, No use of accessory muscles and clear to auscultation bilaterally AUSCULTATION: clear to auscultation bilaterally Cardio: COMMON NORMALS: no JVD, regular rate, regular rhythm, S1 normal heart sound present and S2 normal heart sound present RATE: regular rate RHYTHM: regular rhythm HEART SOUNDS: S1 normal heart sound present and S2 normal heart sound present GI: COMMON NORMALS: Normal to inspection, nondistended, normoactive bowel sounds present, Soft to palpation, non-tender, No hepatosplenomegaly present, no masses and no bruits PALPATION: Yes Soft to palpation and Yes No hepatosplenomegaly present Extremity: COMMON NORMALS: capillary refill normal, no clubbing, cyanosis or edema, no calf tenderness and no pedal edema Neuro: COMMON NORMALS: patient oriented x3 Psych: COMMON NORMALS: mental status grossly normal Discharge Data Data Completed and Pending: Completed Studies During Hospitalization Category Date Time Status Sestamibi Stress Test Request Routi ne Exams 07/24/20 22:36 Completed XR chest 1V anu ble [id number] Stat Exams 07/24/20 19:38 Completed NM betsy perf SPECT r/s* [id number] Routin e Nuc Med 07/25/20 22:36 Completed CV echo complete* [id number] Routine Ultrasound 07/25/20 22:36 Completed Pending at discharge Category Date Time Status Urine Culture Sta t Lab 07/24/20 19:44 Received Labs from last 24 hours 07/25/20 07/25/20 07/25/20 02:40 02:40 01:59 WBC 12.1 H RBC 4.34 Hgb 13.8 Hct 40.4 MCV 93.1 MCH 31.8 MCHC 34.2 RDW 11.8 L Plt Count 296 MPV 11.1 H Neut % (Auto) 59.2 Lymph % (Auto) 29.0 Cocke % (Auto) 6.7 Eos % (Auto) 3.9 Baso % (Auto) 0.7 Neut # (Auto) 7.14 Lymph # (Auto) 3.5 Cocke # (Auto) 0.8 Eos # (Auto) 0.5 Baso # (Auto) 0.1 Nucleated RBC % (a uto) 0 Nucleated RBCs # 0.0 PT INR D-Dimer Sodium 141 Potassium 4.1 Chloride 103 Carbon Dioxide 30 H Anion Gap 12.1 BUN 12 Creatinine 0.6 GFR Calculation 103.4 Glucose 112 Calculated Osmolal ity 293 Calcium 9.6 Magnesium Total Bilirubin AST ALT Alkaline Phosphata se Troponin T Baselin e Troponin T Hi Sens 6Hr 8.81 Troponin T Hi Sens 6Hr Delta 0.81 Total Protein Albumin Globulin Triglycerides Cholesterol LDL Cholesterol, C alc HDL Cholesterol LDL/HDL Ratio Cholesterol/HDL Ra ava Lipase TSH Urine Color Urine Appearance Urine pH Ur Specific Gravit y Urine Protein Urine Glucose (UA) Urine Ketones Urine Blood Urine Nitrate Urine Bilirubin Urine Urobilinogen Ur Leukocyte Alejandrina ase Urine RBC Urine WBC Ur Squamous Epith Cells Amorphous Sediment Urine Bacteria Urine Mucus 07/24/20 07/24/20 07/24/20 19:44 19:44 19:44 WBC RBC Hgb Hct MCV MCH MCHC RDW Plt Count MPV Neut % (Auto) Lymph % (Auto) Cocke % (Auto) Eos % (Auto) Baso % (Auto) Neut # (Auto) Lymph # (Auto) Cocke # (Auto) Eos # (Auto) Baso # (Auto) Nucleated RBC % (a uto) Nucleated RBCs # PT INR D-Dimer Sodium Potassium Chloride Carbon Dioxide Anion Gap BUN Creatinine GFR Calculation Glucose Calculated Osmolal ity Calcium Magnesium Total Bilirubin AST ALT Alkaline Phosphata se Troponin T Baselin e 8 Troponin T Hi Sens 6Hr Troponin T Hi Sens 6Hr Delta Total Protein Albumin Globulin Triglycerides 339 H Cholesterol 220 H LDL Cholesterol, C alc 123 HDL Cholesterol 29 L LDL/HDL Ratio 4.24 H Cholesterol/HDL Ra ava 7.59 H Lipase TSH 0.01 L Urine Color Yellow Urine Appearance Clear Urine pH 6 Ur Specific Gravit y 1.020 Urine Protein Neg Urine Glucose (UA) Norm Urine Ketones Negative Urine Blood 2+ H Urine Nitrate Negative Urine Bilirubin Neg Urine Urobilinogen Norm Ur Leukocyte Alejandrina ase Negative Urine RBC 10-15 H Urine WBC 0-4 H Ur Squamous Epith Cells 0-4 H Amorphous Sediment Not Reportable Urine Bacteria Trace Urine Mucus Trace 07/24/20 07/24/20 07/24/20 19:44 19:44 19:44 WBC 12.8 H RBC 4.57 Hgb 14.5 Hct 42.3 MCV 92.6 MCH 31.7 MCHC 34.3 RDW 11.8 L Plt Count 314 MPV 11.1 H Neut % (Auto) 61.7 Lymph % (Auto) 26.2 Cocke % (Auto) 6.6 Eos % (Auto) 4.1 Baso % (Auto) 1.0 Neut # (Auto) 7.91 H Lymph # (Auto) 3.4 Cocke # (Auto) 0.9 Eos # (Auto) 0.5 Baso # (Auto) 0.1 Nucleated RBC % (a uto) 0 Nucleated RBCs # 0.0 PT 12.70 INR 0.92 D-Dimer Sodium 141 Potassium 3.7 Chloride 104 Carbon Dioxide 26 Anion Gap 14.7 BUN 10 Creatinine 0.6 GFR Calculation 103.4 Glucose 96 Calculated Osmolal ity 291 Calcium 9.7 Magnesium 1.7 Total Bilirubin 0.2 AST 13 ALT 14 Alkaline Phosphata se 109 H Troponin T Baselin e Troponin T Hi Sens 6Hr Troponin T Hi Sens 6Hr Delta Total Protein 6.6 Albumin 4.1 Globulin 2.5 Triglycerides Cholesterol LDL Cholesterol, C alc HDL Cholesterol LDL/HDL Ratio Cholesterol/HDL Ra ava Lipase 81 H TSH Urine Color Urine Appearance Urine pH Ur Specific Gravit y Urine Protein Urine Glucose (UA) Urine Ketones Urine Blood Urine Nitrate Urine Bilirubin Urine Urobilinogen Ur Leukocyte Alejandrina ase Urine RBC Urine WBC Ur Squamous Epith Cells Amorphous Sediment Urine Bacteria Urine Mucus 07/24/20 14:44 WBC RBC Hgb Hct MCV MCH MCHC RDW Plt Count MPV Neut % (Auto) Lymph % (Auto) Cocke % (Auto) Eos % (Auto) Baso % (Auto) Neut # (Auto) Lymph # (Auto) Cocke # (Auto) Eos # (Auto) Baso # (Auto) Nucleated RBC % (a uto) Nucleated RBCs # PT INR D-Dimer 0.35 Sodium Potassium Chloride Carbon Dioxide Anion Gap BUN Creatinine GFR Calculation Glucose Calculated Osmolal ity Calcium Magnesium Total Bilirubin AST ALT Alkaline Phosphata se Troponin T Baselin e Troponin T Hi Sens 6Hr Troponin T Hi Sens 6Hr Delta Total Protein Albumin Globulin Triglycerides Cholesterol LDL Cholesterol, C alc HDL Cholesterol LDL/HDL Ratio Cholesterol/HDL Ra ava Lipase TSH Urine Color Urine Appearance Urine pH Ur Specific Gravit y Urine Protein Urine Glucose (UA) Urine Ketones Urine Blood Urine Nitrate Urine Bilirubin Urine Urobilinogen Ur Leukocyte Alejandrina ase Urine RBC Urine WBC Ur Squamous Epith Cells Amorphous Sediment Urine Bacteria Urine Mucus Vitals: Last Vital Signs Temp 97.9 F 07/25/20 08:00 Pulse 67 07/25/20 16:03 Resp 16 07/25/20 16:03 BP 126/74 07/25/20 16:03 Pulse Ox 97 07/25/20 09:16 Discharge Plan Discharge Patient Disposition: Home Condition: Stable Prescriptions: New pantoprazole 40 mg Tablet,Delayed Release (Dr/Ec) 40 mg PO DAILY 30 Days Qty: 30 RF: 0 levothyroxine [Levoxyl] 100 mcg Tablet 100 mcg PO DAILY 30 Days Qty: 30 RF: 0 aspirin 81 mg tablet,delayed release (DR/EC) 81 mg PO DAILY 30 Days Qty: 30 RF: 0 atorvastatin 40 mg tablet 40 mg PO DAILY 30 Days Qty: 30 RF: 0 Continued albuterol sulfate [ProAir HFA] 90 mcg/actuation HFA aerosol inhaler 2 puff INHALATION Q6H PRN (Reason: shortness of breath or wheezing) Qty: 8.5 RF: 0 cetirizine-pseudoephedrine [Zyrtec-D] 5-120 mg tablet extended release 12 hr 1 tab PO .ONCE DAILY Qty: 30 RF: 0 estradiol 0.5 mg tablet 0.5 mg PO DAILY RF: 0 baclofen 10 mg tablet 10 mg PO TID RF: 0 Zyrtec 10 mg capsule 10 mg PO DAILY RF: 0 triamcinolone acetonide [Nasacort] 55 mcg aerosol,spray 1 spray INTRANASAL DAILY RF: 0 trazodone 150 mg tablet 100 mg PO .AT BEDTIME RF: 0 Discontinued levothyroxine [Synthroid] 125 mcg tablet 125 mcg PO DAILY RF: 0 Discharge Orders: Discharge Order (Routine); Ordered 07/25/20 Ordered By: Andrew Lyons Referrals: Dayana Joshua DO [Primary Care Provider] - Discharge Diet: Cardiac Discharge Activity: Resume usual activity Patient Instructions: Chest Pain (DC) Discharge Attestations Time Spent in Discharge Care*: less than 30 min Quality Metrics Clinical Quality Measures During this hospital stay, did patient experience: None Coding Level of Care Code Acute 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
--- NOTE | 2020-07-25 17:11 | PC.RESP ---
Smoking Cessation information sent to patient.
--- NOTE | 2020-07-25 18:01 | PC.NURSE ---
patient had an unevenful shift. dr blanco called and asked how patient was doing. patient denied any pain. dr blanco notified and was going to put in discharge. discharge instructions given to patient and daughter. both verbalized an understanding. patient stated, well im not changing my synthroid because it has been changed too many time. patient educated that her TSH was a little low and that is why dr blanco decreased it. patient verbalized an understanding. patient then ambulated out of the facility with daughter to private vehicle.
--- NOTE | 2020-07-25 22:36 | NMCV_ITS ---
NM betsy perf SPECT r/s* [id number] Emelia Etienne Age: 54 Gender: F : 1965 Exam Date: 07/25/2020 12:06 Ordering Phys: Pretty Dye MD Technologist: MARITZA Bruce Exam Location: [facility] Indications: LEFT SHOULDER NECK JAW PAIN WITH SOB STRESS TEST Please see separate stress test report in [facility] for full findings IMAGE PROTOCOL Rest/Stress 1 Lexiscan Day Radiopharmaceutical Dose (mCi) Administration Site Administered by Rest: Tc-99m 10.6 IV MARITZA Bruce Sestamibi Stress:Tc-99m 32.1 IV MARITZA Bruce Sestamibi Rest: 25-Jul-2020 60 Discovery 630 Stress: 25-Jul-2020 30 Discovery 630 0.4mg Lexiscan. Images obtained in supine and prone position. SPECT RESULTS Technical Quality: Excellent Raw Data Analysis: Normal Image Corrections: No attenuation or motion correction applied Summed Stress Score: 10 Summed Rest Score: 6 Summed Difference Score: 5 PERFUSION FINDINGS Small size perfusion abnormality of mild severity of mid inferolateral, apical lateral, apical inferior lindsey on rest images with mild reversibility in mid inferolateral and apical lateral lindsey on supine stress images. There is improved tracer uptake in inferolateral and inferior lindsey on prone stress images. This is suggestive of attenuation artifact. FUNCTIONAL RESULTS (calculated via Gated SPECT) Stress Image LV EF (%): 83 Stress EDV (mL):59 TID: 0.96 Stress ESV (mL):10 FUNCTIONAL FINDINGS: The left ventricle is normal in size. Transient Ischemia Dilatation of 0.96. There is normal left ventricular systolic function. The left ventricular ejection fraction is normal with a value of 83%. No regional wall motion normality. There is normal left ventricular wall thickening. IMPRESSIONS 1. Myocardial perfusion imaging is normal. Diaphragmatic attenuation artifact noted in inferior and inferolateral lindsey. 2. Overall left ventricular systolic function is normal without regional wall motion abnormalities. 3. The left ventricular ejection fraction is normal with a value of 83%. 4. Scan indicates low risk for cardiac events. 5. No prior similar studies to compare. Hilda Up MD (Electronically Signed) Final Date: 25 July 2020 16:26 S
--- NOTE | 2020-07-25 22:36 | USCV_ITS ---
Emelia Etienne Age: 54 Gender: F : 1965 Exam Date: 07/25/2020 07:05 Ordering Phys: Pretty Dye MD Technologist: Jennifer Greer [place] [facility] [place]: ANGINA BP: 140 / 77 HR: 65 Rhythm: Sinus Technical Quality: Adequate MEASUREMENTS (Male / Female) Normal Values 2D ECHO LV Diastolic Diameter PLAX 3.0 cm 4.2 - 5.9 / 3.9 - 5.3 cm LV Systolic Diameter PLAX 2.7 cm LV Chamber Size 3.0 cm IVS Diastolic Thickness 1.2 cm 0.6 - 1.0 / 0.6 - 0.9 cm IVS Systolic Thickness 1.8 cm LVPW Diastolic Thickness 2.0 cm 0.6 - 1.0 / 0.6 - 0.9 cm LVPW Systolic Thickness 1.5 cm RV Chamber Size 2.8 cm LVOT Diameter 2.1 cm LV Ejection Fraction 2D Teich 49.5 % LV Ejection Fraction MOD 2C 78.8 % LV Ejection Fraction 2C AL 78.9 % LA Diameter 3.5 cm LA Width 2.7 cm LA Height 4.3 cm RA Width 3.0 cm RA Height 3.7 cm Aorta at Sinotubular Diameter 2.6 cm M-MODE LV Diastolic Diameter MM 4.5 cm 4.2 - 5.9 / 3.9 - 5.3 cm LV Systolic Diameter MM 3.5 cm LV Ejection Fraction MM Teich 45.7 % IVS Diastolic Thickness MM 1.2 cm 0.6 - 1.0 / 0.6 - 0.9 cm IVS Systolic Thickness MM 1.4 cm LVPW Diastolic Thickness MM 1.4 cm 0.6 - 1.0 / 0.6 - 0.9 cm LVPW Systolic Thickness MM 1.6 cm RV Diastolic Diameter MM 1.4 cm Aortic Annulus Diameter 2.6 cm LA Ao Ratio MM 1.6 MV E Point Septal Separation 0.4 cm DOPPLER AV Peak Velocity 105.0 cm/s LVOT Peak Velocity 99.0 cm/s AV Area Cont Eq vti 4.4 cm squared AV Area Cont Eq pk 3.2 cm squared MV Area PHT 2.6 cm squared Mitral E to A Ratio 0.8 MV E' Velocity 44.0 cm/s Mitral E to MV E' Ratio 7.1 Mitral E to LV E' Lateral Ratio 8.3 Mitral E to LV E' Septal Ratio 6.3 TR Peak Velocity 136.2 cm/s TR Peak Gradient 7.4 mmHg TR Mean Velocity 92.7 cm/s TR Mean Gradient 3.9 mmHg TR Velocity Time Integral 33.2 cm TV Peak E Velocity 73.0 cm/s Right Atrial Pressure 3.0 mmHg Pulmonary Artery Systolic Pressu 10.4 mmHg PV Peak Velocity 79.0 cm/s RV Acceleration Time 0.2 s RV Ejection Time 0.4 s RV AcT/ET 0.5 FINDINGS Left Ventricle Normal left ventricular size and systolic function, EF 64 %. No regional wall motion abnormalities. Grade I/IV diastolic dysfunction (abnormal relaxation filling pattern), normal to mildly elevated filling pressures. Mild left ventricular hypertrophy. Right Ventricle The right ventricle is normal in size and function. Right Atrium Could not be visualized well Left Atrium Mildly increased left atrial size. Mitral Valve Trace mitral valve regurgitation. Aortic Valve No gross abnormalities noted Tricuspid Valve Tricuspid valve not well visualized. Pulmonic Valve Pulmonic valve not well visualized. Pericardium Normal pericardium without effusion. Aorta Normal ascending aorta dimension. CONCLUSIONS Normal left ventricular size and systolic function, EF 64 %. No regional wall motion abnormalities. Grade I/IV diastolic dysfunction (abnormal relaxation filling pattern), normal to mildly elevated filling pressures. Mild left ventricular hypertrophy. Trace mitral valve regurgitation. There is no pericardial effusion. No previous study is available for comparison. Dr Syed Lopez MD FAC (Electronically Signed) Final Date: 25 July 2020 15:32 S
== END 2020-07-25 18:01 | disposition home or self-care (01) ==
LOC: ER 21:01 → CSU 21:38
PROVIDERS: Admitting Provider Internal Medicine; Emergency Provider Emergency Medicine; PCP Family Medicine; Visit Provider Family Medicine
DX: I25.110 Atherosclerotic heart disease of native coronary artery with unstable angina pectoris (principal); K52.839 Microscopic colitis, unspecified; E03.9 Hypothyroidism, unspecified; F17.210 Nicotine dependence, cigarettes, uncomplicated; F32.9 Major depressive disorder, single episode, unspecified; M19.90 Unspecified osteoarthritis, unspecified site
CPT/HCPCS: 12345; 36415; 71045; 78452; 80048; 80053; 80061; 81001; 83690; 83735; 84443; 84484; 85025; 85378; 85610; 87086; 93005; 93017; 93306; 94640; 96372; 96374; 96375; 96376; 99283; 99285; A9500; G0378; J1650; J2270; J2405; J2785; J3535; J7030

== ENCOUNTER 2020-08-03 07:51 | Outpatient (CLI) | payer MEDICARE, SELFPAY ==
--- NOTE | 2020-08-03 08:00 | US_ITS ---
WS: [id number] RIGHT UPPER QUADRANT ULTRASOUND HISTORY: ruq pain COMPARISON: None available. Liver: 15.9 cm in length. Normal size liver. No bile duct dilatation or mass. Gallbladder: Normally distended gallbladder with no stones or wall thickening. CBD: 0.4 cm Pancreas: Normal size and echogenicity. Right kidney: 9.7 cm in length. Normal size and echogenicity. No hydronephrosis or mass. Aorta and IVC: Unremarkable abdominal aorta and IVC. No ascites. US/US gall bladder [id number] IMPRESSION: Normal RIGHT upper quadrant ultrasound.
== END 2020-08-03 07:52 | disposition home or self-care (01) ==
LOC: RAD 07:55
PROVIDERS: PCP Family Medicine; Visit Provider Family Medicine
DX: R10.11 Right upper quadrant pain (principal)
CPT/HCPCS: 76705

== ENCOUNTER → 2021-03-09 12:56 | Outpatient (BNVA) | payer MEDICARE, SELFPAY | PROVIDERS: PCP Family Medicine; Visit Provider Nurse Practitioner Family | DX: Z20.822 Contact with and (suspected) exposure to COVID-19 (principal); J06.9 Acute upper respiratory infection, unspecified | CPT/HCPCS: 87635 ==

== ENCOUNTER → 2021-04-10 14:20 | Outpatient (BNVA) | payer MEDICARE, SELFPAY | PROVIDERS: PCP Family Medicine; Visit Provider Nurse Practitioner Family | DX: K52.839 Microscopic colitis, unspecified (principal); R19.7 Diarrhea, unspecified | CPT/HCPCS: 80053 ==

== ENCOUNTER 2021-06-04 14:24 | Emergency (ER) | payer MEDICARE, SELFPAY ==
[2021-06-04 14:27] VITALS: BP 156/89; PULSE 74; RESP 18; TEMP 37; O2SAT 97; BMI 29.2
--- NOTE | 2021-06-04 14:40 | CTR_ITS ---
PROCEDURE INFORMATION: Exam: CT Head Without Contrast Exam date and time: 06/04/2021 2:40 PM Age: 55 years old Clinical indication: Pain; Headache not specified; Patient HX: C/O KISER, nausea and dizziness; Additional info: Dizziness, headache TECHNIQUE: Imaging protocol: Computed tomography of the head without contrast. Radiation optimization: All CT scans at this facility use at least one of these dose optimization techniques: automated exposure control; mA and/or kV adjustment per patient size (includes targeted exams where dose is matched to clinical indication); or iterative reconstruction. COMPARISON: No relevant prior studies available. RADIATION DOSE METRICS: Total DLP (mGy-cm): 752.9 FINDINGS: Brain: Normal. No hemorrhage. Unremarkable white matter. No mass effect. Cerebral ventricles: No ventriculomegaly. Paranasal sinuses: Opacified right frontal and ethmoid sinuses and mild mucosal thickening of the partially visualized maxillary and sphenoid sinuses. Mastoid air cells: Visualized mastoid air cells are well aerated. Bones/joints: Unremarkable. No acute fracture. Soft tissues: Unremarkable. CT/CT head wo con* [id number] IMPRESSION: 1. No acute intracranial abnormality. 2. Multifocal sinusitis. Radiation Dose CTDIVOL = (mGy): DLP = 752.9 (mGy-cm)
--- NOTE | 2021-06-04 14:53 | W.ED.DIZZY ---
Documented by User: EDUADRO Cotton 06/05/21 07:07 HPI - Dizziness General: Chief Complaint: Dizziness Stated Complaint: NEURO SX Time Seen by Provider: 06/04/21 14:40 History of Present Illness: HPI Narrative: Patient is a 55-year-old female comes to the ED with strokelike symptoms. Symptom onset was around 1330 today. 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 Patient describes having intense headache that was on the right side of her head just behind her right eye. She also was experiencing some dizziness, right sided facial numbness/tingling and pain in her right eye. She also endorses having some nausea. She also endorses some confusion with onset of symptoms. Her daughter is present and she thought that patient had some right-sided facial droop earlier when she first saw her, but it seems to have resolved before they got to the ED. She has a history of migraines and she is currently seeing a neurologist and being worked up for possible MS. patient says she took some Tylenol earlier today. She states that her headache is better here in the ED and she rates it currently a 3 out of 10. The dizziness only occurs when she is up and moving around. Associated symptoms: Reports headache(s); Denies chest pain, chills, nausea, nasal congestion, palpitations or vomiting Associated neuro symptoms: Reports confusion; Deny numbness in extremities Review of Systems Const: Denies: fever(s), chills or fatigue Eyes: Denies: change in vision or eye discomfort ENMT: Denies: throat pain, odynophagia, nasal discharge or nasal congestion Card: Denies: chest pain, palpitations, edema, swelling of feet/ankles, dyspnea on exertion or orthopnea Resp: Denies: dyspnea, productive cough or non-productive cough GI: Denies: abdominal pain, nausea, vomiting, diarrhea, constipation or hematochezia : Denies: flank pain, dysuria or hematuria Musc: Reports: muscle cramps (mid back-chronic issue); Denies: neck pain, back pain or extremity swelling Skin/Breast: Denies: rash or new lesions Neuro: Reports: headache(s), sensory changes (right sided facial numbness), dizziness and confusion; Denies: numbness in extremities or weakness in extremities [facility] ED PFSH: Medical History Chronic cystitis with hematuria Chronic diarrhea Cindi's thyroiditis History of renal stone Inflammatory bowel disease Insomnia Major depressive disorder Muscle cramps Nasal polyps Osteoarthritis PTSD (post-traumatic stress disorder) Surgical History H/O section H/O tubal ligation H/O: hysterectomy History of appendectomy History of bilateral breast reduction surgery Family History Other CAD (coronary artery disease) Cancer Diabetes Multiple sclerosis Social History Smoking and tobacco status: current every day smoker cigarettes Packs smoked per day: 0.1 Alcohol intake: current Alcohol intake frequency: holidays/special occasions only History of recent travel: No Physical Exam Const: COMMON NORMALS: no acute distress, patient oriented x3, healthy appearing and alert GENERAL APPEARANCE: cooperative and comfortable HENMT: COMMON NORMALS: normocephalic HEAD & SCALP: normocephalic MOUTH: Normal oral and palatal mucosa present THROAT: posterior oropharynx normal and uvula midline Eye: COMMON NORMALS: Equal, round and reactive pupils present and EOMs intact bilaterally PUPIL: Yes Equal, round and reactive pupils present Neck/C-Spine: COMMON NORMALS: supple GENERAL: Yes normal visual inspection Resp: COMMON NORMALS: normal respiratory effort, No retractions, No use of accessory muscles and clear to auscultation bilaterally AUSCULTATION: clear to auscultation bilaterally Cardio: COMMON NORMALS: regular rate, regular rhythm, S1 normal heart sound present, S2 normal heart sound present, No gallops present (Cardio), No clicks present (Cardio), No murmurs present (Cardio) and Peripheral pulses 2+ throughout RATE: regular rate RHYTHM: regular rhythm HEART SOUNDS: S1 normal heart sound present and S2 normal heart sound present PERIPHERAL PULSES: Peripheral pulses 2+ throughout GI: COMMON NORMALS: Normal to inspection, nondistended, normoactive bowel sounds present, Soft to palpation, non-tender and no masses PALPATION: Yes Soft to palpation : COMMON NORMALS: Yes no CVA tenderness BLADDER/KIDNEY EXAM: Yes no CVA tenderness Back/Pelvis: COMMON NORMALS: no CVA tenderness Neuro: COMMON NORMALS: patient oriented x3, CN's II-XII intact bilaterally, moves all extremities, no focal motor deficits and no sensory deficits noted SENSORIUM/ORIENTATION: Yes alert SENSORY EXAM: Yes extremities (intact) MOTOR EXAM: 5/5 motor strength present throughout OTHER: Patient is showing no signs of facial droop here ED. Skin: GENERAL SKIN EXAM: dry skin Course Reevaluation(s): Reevaluation #1: I went in to check on patient and asked her about her symptoms. She said her dizziness/lightheadedness has almost resolved. Her headache is very mild and manageable currently. She endorses feeling a lot better and does not have the same sort of mental confusion she felt like she had earlier. She also says her right eye is not hurting like it was earlier. Time: 16:42 Vital Signs: Vital signs: Vital Signs Temperature 98.6 F 06/04/21 14:27 Pulse Rate 82 06/04/21 17:38 Respiratory Rate 16 06/04/21 17:38 Blood Pressure 135/89 06/04/21 17:38 Pulse Oximetry 98 06/04/21 17:38 MDM - Dizziness Lab Data: Attestation: I reviewed the patient's lab results. Labs: Lab Results 06/04/21 06/04/21 06/04/21 14:50 14:50 14:50 WBC 13.1 10^3/uL H 10 ^3/uL (4.0-10.0) RBC 4.48 10^6/uL 10^6 /uL (4.1-5.3) Hgb 14.6 g/dL g/dL (11.5-15.3) Hct 42.6 % % (37.0-47.0) MCV 95.1 fl fl (81-99) MCH 32.6 pg pg (28.0-34.0) MCHC 34.3 g/dL g/dL (30.0-36.0) RDW 11.8 % L % (12.1-15.1) Plt Count 280 10^3/cmm 10^3 /cmm (130-400) MPV 11.5 fL H fL (7.4-10.4) Neut % (Auto) 63.7 % % Lymph % (Auto) 21.4 % % [place] % (Auto) 5.2 % % Eos % (Auto) 8.1 % % Baso % (Auto) 1.1 % % Neut # (Auto) 8.36 10^3/uL H 10 ^3/uL (1.8-7.7) Lymph # (Auto) 2.8 10^3/uL 10^3/ uL (0.8-4.8) [place] # (Auto) 0.7 10^3/uL 10^3/ uL (0.2-0.9) Eos # (Auto) 1.1 10^3/uL H 10^ 3/uL (0.0-0.8) Baso # (Auto) 0.1 10^3/uL 10^3/ uL (0.0-0.1) Nucleated RBC % (a uto) 0 % % Nucleated RBCs # 0.0 /100WBC /100W BC PT 13.10 SECONDS SEC ONDS (12.1-14.9) INR 0.96 (0.8-1.2) APTT 27.8 SECONDS SECO NDS (23.9-36.7) Sodium 136 mmol/L mmol/L (136-145) Potassium 3.6 mmol/L mmol/L (3.5-5.1) Chloride 104 mmol/L mmol/L (98-107) Carbon Dioxide 20 mmol/L L mmol/ L (22-29) Anion Gap 15.6 (5-19) BUN 6 mg/dL mg/dL (6-20) Creatinine 0.5 mg/dL mg/dL (0.5-0.9) GFR Calculation 127.2 mL/min mL/m in (90-130) Glucose 90 mg/dL mg/dL (65-115) Calculated Osmolal ity 279 mOsm/kg L mOs m/kg (285-295) Calcium 8.9 mg/dL mg/dL (8.5-10.5) Total Bilirubin 0.3 mg/dL mg/dL (0.15-1.2) AST 12 U/L U/L (0-32) ALT 9 U/L U/L (0-33) Alkaline Phosphata se 89 IU/L IU/L (35-105) Total Protein 6.7 g/dL g/dL (6.6-8.7) Albumin 4.0 g/dL g/dL (3.5-5.2) Globulin 2.7 g/dL g/dL (1.3-4.6) Imaging Data^: CT Head: Attestation: I personally reviewed and interpreted this imaging study as follows: Radiologist's impression: [facility] [place] [address] CT Scan Report Signed Patient: Emelia Etienne Unit #: [id number] : 1965 Age/Sex: 55 / F ADM Date: 06/04/21 Loc: ER Room/Bed: Attending Dr: Ordering Provider/Ordering MD: Bruno Palomo Date of Service: 06/04/21 Procedure(s): CT head wo con* [id number] Accession Number(s): [id number] Report Number: [id number] PROCEDURE INFORMATION: Exam: CT Head Without Contrast Exam date and time: 06/04/2021 2:40 PM Age: 55 years old Clinical indication: Pain; Headache not specified; Patient HX: C/O KISER, nausea and dizziness; Additional info: Dizziness, headache TECHNIQUE: Imaging protocol: Computed tomography of the head without contrast. Radiation optimization: All CT scans at this facility use at least one of these dose optimization techniques: automated exposure control; mA and/or kV adjustment per patient size (includes targeted exams where dose is matched to clinical indication); or iterative reconstruction. COMPARISON: No relevant prior studies available. RADIATION DOSE METRICS: Total DLP (mGy-cm): 752.9 FINDINGS: Brain: Normal. No hemorrhage. Unremarkable white matter. No mass effect. Cerebral ventricles: No ventriculomegaly. Paranasal sinuses: Opacified right frontal and ethmoid sinuses and mild mucosal thickening of the partially visualized maxillary and sphenoid sinuses. Mastoid air cells: Visualized mastoid air cells are well aerated. Bones/joints: Unremarkable. No acute fracture. Soft tissues: Unremarkable. CT/CT head wo con* [id number] IMPRESSION: 1. No acute intracranial abnormality. 2. Multifocal sinusitis. Radiation Dose CTDIVOL = (mGy): DLP = 752.9 (mGy-cm) Dictated By: Hector Blake DO Signed By: Hector Blake DO Signed Date/Time: 06/04/21 1532 DD/ 1440 Discharge Plan Discharge Patient Disposition: Home Clinical Impression: Ocular migraine Condition: Stable Prescriptions: No Action albuterol sulfate [ProAir HFA] 90 mcg/actuation HFA aerosol inhaler 2 puff INHALATION Q6H PRN (Reason: shortness of breath or wheezing) Qty: 8.5 RF: 0 cetirizine [Zyrtec] 10 mg tablet 10 mg PO DAILY RF: 0 vitamins A,C,K-tbfa-iijnnz PO RF: 0 budesonide 9 mg tablet,delayed and ext.release 9 mg PO DAILY 56 Days Qty: 56 RF: 0 estradiol 0.5 mg tablet 0.5 mg PO DAILY RF: 0 baclofen 10 mg tablet 10 mg PO TID RF: 0 trazodone 150 mg tablet 100 mg PO .AT BEDTIME RF: 0 Discharge Orders: Discharge ED (Routine); Ordered 06/04/21 Ordered By: Pamela Cisneros Referrals: Dayana Joshua DO [Primary Care Provider] - Activity Restrictions/Additional Instructions: You have requested a referral to neurology for further evaluation-this will be placed with case management and they should contact you within the next few days to set you up with this appointment. You need to return to the emergency department for further episodes of severe headaches, vision changes/visual loss, facial deficits, trouble speaking/slurred speech, trouble with gait/ambulation, weakness to the extremities, or any other concerns you may have. Sign Out Sign Out Data: Patient Sign Out occurred on 06/04/21 at 17:18. Patient's care was discussed, and care was transferred from to EDUARDO Osborn. Coding Level of Care Code ED Manager Critical Care Unit for Chg Fwd Exam Comprehensive Documented by User: EDUARDO Osborn 06/04/21 18:17 HPI - Dizziness General: Chief Complaint: Dizziness Stated Complaint: NEURO SX Time Seen by Provider: 06/04/21 14:40 PFSH ED PFSH: Medical History Chronic cystitis with hematuria Chronic diarrhea Cindi's thyroiditis History of renal stone Inflammatory bowel disease Insomnia Major depressive disorder Muscle cramps Nasal polyps Osteoarthritis PTSD (post-traumatic stress disorder) Surgical History H/O section H/O tubal ligation H/O: hysterectomy History of appendectomy History of bilateral breast reduction surgery Family History Other CAD (coronary artery disease) Cancer Diabetes Multiple sclerosis Social History Smoking and tobacco status: current every day smoker cigarettes Packs smoked per day: 0.1 Alcohol intake: current Alcohol intake frequency: holidays/special occasions only History of recent travel: No Physical Exam Const: COMMON NORMALS: no acute distress, average body habitus, patient oriented x3, no limitations, healthy appearing, alert and well nourished ORIENTATION/CONSCIOUSNESS: Yes oriented to person, Yes oriented to place and Yes oriented to time HENMT: COMMON NORMALS: normocephalic and atraumatic HEAD & SCALP: normocephalic and atraumatic Eye: COMMON NORMALS: Equal, round and reactive pupils present, EOMs intact bilaterally and conjunctivae normal GENERAL EYE: appearance normal, both eyes and all related structures and normal light reflex VISUAL ACUITY: Yes acuity normal VISUAL GOLD: No peripheral vision loss and No central vision loss ALIGNMENT: Yes alignment normal PERIORBITAL: periorbital findings normal EYELID: eyelids normal CONJUNCTIVA: Yes conjunctivae normal SCLERA: sclerae normal CORNEA: Yes corneas normal PUPIL: Yes Equal, round and reactive pupils present DIRECT OPHTHALMOSCOPY: Yes normal light reflex Neuro: [place] COMA SCALE: document [facility] findings [place] coma scale eye opening: Spontaneous [place] coma scale verbal response: Orientated [place] coma scale motor response: Obey commands [place] coma scale total score: 15 COMMON NORMALS: patient oriented x3, CN's II-XII intact bilaterally, moves all extremities, no focal motor deficits and no sensory deficits noted SENSORIUM/ORIENTATION: Yes alert, Yes oriented to person, Yes oriented to place and Yes oriented to time Course Vital Signs: Vital signs: Vital Signs Temperature 98.6 F 06/04/21 14:27 Pulse Rate 82 06/04/21 17:38 Respiratory Rate 16 06/04/21 17:38 Blood Pressure 135/89 06/04/21 17:38 Pulse Oximetry 98 06/04/21 17:38 MDM - Dizziness MDM Narrative: Medical decision making narrative: Assumed care from Bruno Palomo PA-C. Patient is a 55-year-old female here for an episode of right periorbital pain, visual change, dizziness, and lightheadedness while at work today around 1300. Upon arrival to the ED all symptoms have resolved. She has an NIHSS of 0 currently. Patient does have a history of migraine headaches. In addition she has chronic intermittent muscle cramps that she feels are somehow related. Previous provider reported patient is seeing a neurologist but patient states she has never seen a neurologist and just follows up with her PCP in [place], [place]. She is requesting a neurology follow up today. When asked about previous ophthalmology evaluations (given the visual complaints) she tells me she has been diagnosed with optic nerve damage and states that she will often have episodes of blurry or vision loss to her eyes. She has a follow-up with the eye doctor (Dr. Christianson) this week for further evaluation of this. Previous provider had ordered CT head which was negative. Case was then discussed with Dr. Victoria who then recommended CTA head/neg which also was negative. At this time as patient is completely asymptomatic and with normal imaging I think she is appropriate for discharge with neurology follow up. Return to ED precautions given. Lab Data: Labs: Lab Results 06/04/21 06/04/21 06/04/21 14:50 14:50 14:50 WBC 13.1 10^3/uL H 10 ^3/uL (4.0-10.0) RBC 4.48 10^6/uL 10^6 /uL (4.1-5.3) Hgb 14.6 g/dL g/dL (11.5-15.3) Hct 42.6 % % (37.0-47.0) MCV 95.1 fl fl (81-99) MCH 32.6 pg pg (28.0-34.0) MCHC 34.3 g/dL g/dL (30.0-36.0) RDW 11.8 % L % (12.1-15.1) Plt Count 280 10^3/cmm 10^3 /cmm (130-400) MPV 11.5 fL H fL (7.4-10.4) Neut % (Auto) 63.7 % % Lymph % (Auto) 21.4 % % [place] % (Auto) 5.2 % % Eos % (Auto) 8.1 % % Baso % (Auto) 1.1 % % Neut # (Auto) 8.36 10^3/uL H 10 ^3/uL (1.8-7.7) Lymph # (Auto) 2.8 10^3/uL 10^3/ uL (0.8-4.8) [place] # (Auto) 0.7 10^3/uL 10^3/ uL (0.2-0.9) Eos # (Auto) 1.1 10^3/uL H 10^ 3/uL (0.0-0.8) Baso # (Auto) 0.1 10^3/uL 10^3/ uL (0.0-0.1) Nucleated RBC % (a uto) 0 % % Nucleated RBCs # 0.0 /100WBC /100W BC PT 13.10 SECONDS SEC ONDS (12.1-14.9) INR 0.96 (0.8-1.2) APTT 27.8 SECONDS SECO NDS (23.9-36.7) Sodium 136 mmol/L mmol/L (136-145) Potassium 3.6 mmol/L mmol/L (3.5-5.1) Chloride 104 mmol/L mmol/L (98-107) Carbon Dioxide 20 mmol/L L mmol/ L (22-29) Anion Gap 15.6 (5-19) BUN 6 mg/dL mg/dL (6-20) Creatinine 0.5 mg/dL mg/dL (0.5-0.9) GFR Calculation 127.2 mL/min mL/m in (90-130) Glucose 90 mg/dL mg/dL (65-115) Calculated Osmolal ity 279 mOsm/kg L mOs m/kg (285-295) Calcium 8.9 mg/dL mg/dL (8.5-10.5) Total Bilirubin 0.3 mg/dL mg/dL (0.15-1.2) AST 12 U/L U/L (0-32) ALT 9 U/L U/L (0-33) Alkaline Phosphata se 89 IU/L IU/L (35-105) Total Protein 6.7 g/dL g/dL (6.6-8.7) Albumin 4.0 g/dL g/dL (3.5-5.2) Globulin 2.7 g/dL g/dL (1.3-4.6) Imaging Data^: CTA head/neck: Radiologist's impression: [facility] [address] [address] Scan Report Signed Patient: Emelia Etienne Unit #: [id number] : 1965 Age/Sex: 55 / F ADM Date: 06/04/21 Loc: ER Room/Bed: Attending Dr: Ordering Provider/Ordering MD: Bruno Palomo Date of Service: 06/04/21 Procedure(s): CT angio headneck* [id number] Accession Number(s): [id number] Report Number: [id number] PROCEDURE INFORMATION: Exam: CT Angiography Head With Contrast, Arteriography Exam date and time: 06/04/2021 3:40 PM Age: 55 years old Clinical indication: Pain; Headache; Additional info: Acute headache with dizziness TECHNIQUE: Imaging protocol: Computed tomography angiography of the head with contrast. Exam focused on the arteries. 3D rendering (Not supervised by radiologist): MIP and/or 3D reconstructed images were created by the technologist. Total images: 792 Radiation optimization: All CT scans at this facility use at least one of these dose optimization techniques: automated exposure control; mA and/or kV adjustment per patient size (includes targeted exams where dose is matched to clinical indication); or iterative reconstruction. Contrast material: OMNI 350; Contrast volume: 95 ml; Contrast route: INTRAVENOUS (IV); COMPARISON: CT head wo con* [id number] 06/04/2021 3:02 PM RADIATION DOSE METRICS: Total DLP (mGy-cm): 1964.5 FINDINGS: ANTERIOR CIRCULATION: Right internal carotid artery: Unremarkable. Intracranial segment is patent with no significant stenosis. No aneurysm. Right middle cerebral artery: Unremarkable. No occlusion or significant stenosis. No aneurysm. Right anterior cerebral artery: Unremarkable. No occlusion or significant stenosis. No aneurysm. Left internal carotid artery: Minimal cerebral arteriosclerosis of the internal carotid artery terminus. Intracranial segment is patent with no significant stenosis. No aneurysm. Left middle cerebral artery: Unremarkable. No occlusion or significant stenosis. No aneurysm. Left anterior cerebral artery: Unremarkable. No occlusion or significant stenosis. No aneurysm. POSTERIOR CIRCULATION: Right vertebral artery: Hypoplastic. No occlusion or significant stenosis. No aneurysm. Left vertebral artery: Dominant. No occlusion or significant stenosis. No aneurysm. Basilar artery: Diminutive. No occlusion or significant stenosis. No aneurysm. Right posterior cerebral artery: origin. No occlusion or significant stenosis. No aneurysm. Left posterior cerebral artery: Unremarkable. No occlusion or significant stenosis. No aneurysm. Paranasal sinuses: Marked chronic pansinusitis with inspissated mucus most significant involvement left maxillary sinus, right frontal sinus, and the bilateral ethmoid sinuses. No definite air-fluid level to suggest acute sinusitis. Sphenoid sinus relatively spared. IMPRESSION: 1. No large vessel stenosis or occlusion. 2. Marked chronic pansinusitis as detailed in text above. PROCEDURE INFORMATION: Exam: CT Angiography Neck With Contrast Exam date and time: 06/04/2021 3:40 PM Age: 55 years old Clinical indication: Pain; Headache; Additional info: Acute headache with dizziness TECHNIQUE: Imaging protocol: Computed tomography angiography of the neck with contrast. 3D rendering (Not supervised by radiologist): MIP and/or 3D reconstructed images were created by the technologist. Radiation optimization: All CT scans at this facility use at least one of these dose optimization techniques: automated exposure control; mA and/or kV adjustment per patient size (includes targeted exams where dose is matched to clinical indication); or iterative reconstruction. Contrast material: OMNI 350; Contrast volume: 95 ml; Contrast route: INTRAVENOUS (IV); COMPARISON: CT head wo con* [id number] 06/04/2021 3:02 PM RADIATION DOSE METRICS: Total DLP (mGy-cm): 1964.5 FINDINGS: Right common carotid artery: No stenosis. No dissection or occlusion. Right internal carotid artery: No stenosis of the extracranial segment. No dissection or occlusion. Right external carotid artery: No occlusion or stenosis of the origin. Left common carotid artery: No stenosis. No dissection or occlusion. Left internal carotid artery: No stenosis of the extracranial segment. No dissection or occlusion. Left external carotid artery: No occlusion or stenosis of the origin. Right vertebral artery: No stenosis. No dissection or occlusion. Left vertebral artery: No stenosis. No dissection or occlusion. Soft tissues: Unremarkable. No significant soft tissue swelling. Bones/joints: No visible acute osseous abnormality. Degenerative disease and degenerative disc disease of the cervical spine of moderate severity C5/C6 and C6/C7 with mild reversal normal cervical lordosis. Lungs: Mild peripheral acinar emphysema of the lung apices. CT/CT angio headneck* [id number] IMPRESSION: No stenosis or occlusion. REFERENCES: NASCET CRITERIA. The degree of internal carotid artery stenosis is based on NASCET criteria. Normal is no stenosis. Mild is less than 50% stenosis. Moderate is 50-69% stenosis. Severe is 70% to 99% stenosis. Total occlusion is no detectable patent lumen. Radiation Dose CTDIVOL = (mGy): DLP = 1964.5 1964.5 (mGy-cm) Dictated By: Julio Campbell Signed By: Julio Campbell Signed Date/Time: 06/04/21 1720 DD/ 1540 Discharge Plan Discharge Patient Disposition: Home Clinical Impression: Ocular migraine Condition: Stable Prescriptions: No Action albuterol sulfate [ProAir HFA] 90 mcg/actuation HFA aerosol inhaler 2 puff INHALATION Q6H PRN (Reason: shortness of breath or wheezing) Qty: 8.5 RF: 0 cetirizine [Zyrtec] 10 mg tablet 10 mg PO DAILY RF: 0 vitamins A,C,X-agsf-nllute PO RF: 0 budesonide 9 mg tablet,delayed and ext.release 9 mg PO DAILY 56 Days Qty: 56 RF: 0 estradiol 0.5 mg tablet 0.5 mg PO DAILY RF: 0 baclofen 10 mg tablet 10 mg PO TID RF: 0 trazodone 150 mg tablet 100 mg PO .AT BEDTIME RF: 0 Discharge Orders: Discharge ED (Routine); Ordered 06/04/21 Ordered By: Pamela Cisneros Referrals: Dayana Joshua DO [Primary Care Provider] - Activity Restrictions/Additional Instructions: You have requested a referral to neurology for further evaluation-this will be placed with case management and they should contact you within the next few days to set you up with this appointment. You need to return to the emergency department for further episodes of severe headaches, vision changes/visual loss, facial deficits, trouble speaking/slurred speech, trouble with gait/ambulation, weakness to the extremities, or any other concerns you may have. Sign Out Sign Out Data: Patient Sign Out occurred on 06/04/21 at 17:18. Patient's care was discussed, and care was transferred from to EDUARDO Osborn. Coding Level of Care Code ED Manager Critical Care Unit for Chg Fwd Exam Comprehensive Documented by User: Rosemary Victoria MD 06/14/21 23:44 HPI - Dizziness General: Chief Complaint: Dizziness Stated Complaint: NEURO SX Time Seen by Provider: 06/04/21 14:40 PFSH ED PFSH: Medical History Chronic cystitis with hematuria Chronic diarrhea Cindi's thyroiditis History of renal stone Inflammatory bowel disease Insomnia Major depressive disorder Muscle cramps Nasal polyps Osteoarthritis PTSD (post-traumatic stress disorder) Surgical History H/O section H/O tubal ligation H/O: hysterectomy History of appendectomy History of bilateral breast reduction surgery Family History Other CAD (coronary artery disease) Cancer Diabetes Multiple sclerosis Social History Smoking and tobacco status: current every day smoker cigarettes Packs smoked per day: 0.1 Alcohol intake: current Alcohol intake frequency: holidays/special occasions only History of recent travel: No Course Vital Signs: Vital signs: Vital Signs Temperature 98.6 F 06/04/21 14:27 Pulse Rate 82 06/04/21 17:38 Respiratory Rate 16 06/04/21 17:38 Blood Pressure 135/89 06/04/21 17:38 Pulse Oximetry 98 06/04/21 17:38 MDM - Dizziness Lab Data: Labs: Lab Results 06/04/21 06/04/21 06/04/21 14:50 14:50 14:50 WBC 13.1 10^3/uL H 10 ^3/uL (4.0-10.0) RBC 4.48 10^6/uL 10^6 /uL (4.1-5.3) Hgb 14.6 g/dL g/dL (11.5-15.3) Hct 42.6 % % (37.0-47.0) MCV 95.1 fl fl (81-99) MCH 32.6 pg pg (28.0-34.0) MCHC 34.3 g/dL g/dL (30.0-36.0) RDW 11.8 % L % (12.1-15.1) Plt Count 280 10^3/cmm 10^3 /cmm (130-400) MPV 11.5 fL H fL (7.4-10.4) Neut % (Auto) 63.7 % % Lymph % (Auto) 21.4 % % [place] % (Auto) 5.2 % % Eos % (Auto) 8.1 % % Baso % (Auto) 1.1 % % Neut # (Auto) 8.36 10^3/uL H 10 ^3/uL (1.8-7.7) Lymph # (Auto) 2.8 10^3/uL 10^3/ uL (0.8-4.8) [place] # (Auto) 0.7 10^3/uL 10^3/ uL (0.2-0.9) Eos # (Auto) 1.1 10^3/uL H 10^ 3/uL (0.0-0.8) Baso # (Auto) 0.1 10^3/uL 10^3/ uL (0.0-0.1) Nucleated RBC % (a uto) 0 % % Nucleated RBCs # 0.0 /100WBC /100W BC PT 13.10 SECONDS SEC ONDS (12.1-14.9) INR 0.96 (0.8-1.2) APTT 27.8 SECONDS SECO NDS (23.9-36.7) Sodium 136 mmol/L mmol/L (136-145) Potassium 3.6 mmol/L mmol/L (3.5-5.1) Chloride 104 mmol/L mmol/L (98-107) Carbon Dioxide 20 mmol/L L mmol/ L (22-29) Anion Gap 15.6 (5-19) BUN 6 mg/dL mg/dL (6-20) Creatinine 0.5 mg/dL mg/dL (0.5-0.9) GFR Calculation 127.2 mL/min mL/m in (90-130) Glucose 90 mg/dL mg/dL (65-115) Calculated Osmolal ity 279 mOsm/kg L mOs m/kg (285-295) Calcium 8.9 mg/dL mg/dL (8.5-10.5) Total Bilirubin 0.3 mg/dL mg/dL (0.15-1.2) AST 12 U/L U/L (0-32) ALT 9 U/L U/L (0-33) Alkaline Phosphata se 89 IU/L IU/L (35-105) Total Protein 6.7 g/dL g/dL (6.6-8.7) Albumin 4.0 g/dL g/dL (3.5-5.2) Globulin 2.7 g/dL g/dL (1.3-4.6) Discharge Plan Discharge Patient Disposition: Home Clinical Impression: Ocular migraine Condition: Stable Prescriptions: No Action albuterol sulfate [ProAir HFA] 90 mcg/actuation HFA aerosol inhaler 2 puff INHALATION Q6H PRN (Reason: shortness of breath or wheezing) Qty: 8.5 RF: 0 cetirizine [Zyrtec] 10 mg tablet 10 mg PO DAILY RF: 0 vitamins A,C,V-eryv-mtirov PO RF: 0 budesonide 9 mg tablet,delayed and ext.release 9 mg PO DAILY 56 Days Qty: 56 RF: 0 estradiol 0.5 mg tablet 0.5 mg PO DAILY RF: 0 baclofen 10 mg tablet 10 mg PO TID RF: 0 trazodone 150 mg tablet 100 mg PO .AT BEDTIME RF: 0 Discharge Orders: Discharge ED (Routine); Ordered 06/04/21 Ordered By: Pamela Cisneros Referrals: Dayana Joshua DO [Primary Care Provider] - Activity Restrictions/Additional Instructions: You have requested a referral to neurology for further evaluation-this will be placed with case management and they should contact you within the next few days to set you up with this appointment. You need to return to the emergency department for further episodes of severe headaches, vision changes/visual loss, facial deficits, trouble speaking/slurred speech, trouble with gait/ambulation, weakness to the extremities, or any other concerns you may have. Sign Out Sign Out Data: Patient Sign Out occurred on 06/04/21 at 17:18. Patient's care was discussed, and care was transferred from to EDUARDO Osborn. Coding Level of Care Code ED Manager Critical Care Unit for Chg Fwd Exam Comprehensive
[2021-06-04 15:03] LABS: Basophils # 0.1 10^3/uL (0.0-0.1); Basophils % 1.1 %; Eosinophils # 1.1 10^3/uL (0.0-0.8); Eosinophils % 8.1 %; Hematocrit 42.6 % (37.0-47.0); Hemoglobin 14.6 g/dL (11.5-15.3); Lymphocytes # 2.8 10^3/uL (0.8-4.8); Lymphocytes % 21.4 %; Mean Corpuscular HGB Conc 34.3 g/dL (30.0-36.0); Mean Corpuscular Hemoglobin 32.6 pg (28.0-34.0); Mean Corpuscular Volume 95.1 fl (81-99); Mean Platelet Volume 11.5 fL (7.4-10.4); Monocytes # 0.7 10^3/uL (0.2-0.9); Monocytes % 5.2 %; Neutrophils # 8.36 10^3/uL (1.8-7.7); Neutrophils % 63.7 %; Nucleated Red Blood Cells % 0 %; Platelet Count 280 10^3/cmm (130-400); Red Blood Count 4.48 10^6/uL (4.1-5.3); Red Cell Distribution Width 11.8 % (12.1-15.1); White Blood Count 13.1 10^3/uL (4.0-10.0)
[2021-06-04 15:18] LABS: INR 0.96 (0.8-1.2); Partial Thromboplastin Time 27.8 SECONDS (23.9-36.7)
[2021-06-04 15:22] LABS: Alanine Aminotransferase 9 U/L (0-33); Alkaline Phosphatase 89 IU/L (35-105); Anion Gap 15.6 (5-19); Aspartate Amino Transferase 12 U/L (0-32); Blood Urea Nitrogen 6 mg/dL (6-20); Calcium 8.9 mg/dL (8.5-10.5); Carbon Dioxide 20 mmol/L (22-29); Chloride 104 mmol/L (98-107); Globulin 2.7 g/dL (1.3-4.6); Glomerular Filtration Rate 127.2 mL/min (90-130); Glucose 90 mg/dL (65-115); Osmolality Calculated 279 mOsm/kg (285-295); Potassium 3.6 mmol/L (3.5-5.1); Sodium 136 mmol/L (136-145); Total Bilirubin 0.3 mg/dL (0.15-1.2); Total Protein 6.7 g/dL (6.6-8.7)
--- NOTE | 2021-06-04 15:40 | CTR_ITS ---
PROCEDURE INFORMATION: Exam: CT Angiography Head With Contrast, Arteriography Exam date and time: 06/04/2021 3:40 PM Age: 55 years old Clinical indication: Pain; Headache; Additional info: Acute headache with dizziness TECHNIQUE: Imaging protocol: Computed tomography angiography of the head with contrast. Exam focused on the arteries. 3D rendering (Not supervised by radiologist): MIP and/or 3D reconstructed images were created by the technologist. Total images: 792 Radiation optimization: All CT scans at this facility use at least one of these dose optimization techniques: automated exposure control; mA and/or kV adjustment per patient size (includes targeted exams where dose is matched to clinical indication); or iterative reconstruction. Contrast material: OMNI 350; Contrast volume: 95 ml; Contrast route: INTRAVENOUS (IV); COMPARISON: CT head wo con* [id number] 06/04/2021 3:02 PM RADIATION DOSE METRICS: Total DLP (mGy-cm): 1964.5 FINDINGS: ANTERIOR CIRCULATION: Right internal carotid artery: Unremarkable. Intracranial segment is patent with no significant stenosis. No aneurysm. Right middle cerebral artery: Unremarkable. No occlusion or significant stenosis. No aneurysm. Right anterior cerebral artery: Unremarkable. No occlusion or significant stenosis. No aneurysm. Left internal carotid artery: Minimal cerebral arteriosclerosis of the internal carotid artery terminus. Intracranial segment is patent with no significant stenosis. No aneurysm. Left middle cerebral artery: Unremarkable. No occlusion or significant stenosis. No aneurysm. Left anterior cerebral artery: Unremarkable. No occlusion or significant stenosis. No aneurysm. POSTERIOR CIRCULATION: Right vertebral artery: Hypoplastic. No occlusion or significant stenosis. No aneurysm. Left vertebral artery: Dominant. No occlusion or significant stenosis. No aneurysm. Basilar artery: Diminutive. No occlusion or significant stenosis. No aneurysm. Right posterior cerebral artery: origin. No occlusion or significant stenosis. No aneurysm. Left posterior cerebral artery: Unremarkable. No occlusion or significant stenosis. No aneurysm. Paranasal sinuses: Marked chronic pansinusitis with inspissated mucus most significant involvement left maxillary sinus, right frontal sinus, and the bilateral ethmoid sinuses. No definite air-fluid level to suggest acute sinusitis. Sphenoid sinus relatively spared. IMPRESSION: 1. No large vessel stenosis or occlusion. 2. Marked chronic pansinusitis as detailed in text above. PROCEDURE INFORMATION: Exam: CT Angiography Neck With Contrast Exam date and time: 06/04/2021 3:40 PM Age: 55 years old Clinical indication: Pain; Headache; Additional info: Acute headache with dizziness TECHNIQUE: Imaging protocol: Computed tomography angiography of the neck with contrast. 3D rendering (Not supervised by radiologist): MIP and/or 3D reconstructed images were created by the technologist. Radiation optimization: All CT scans at this facility use at least one of these dose optimization techniques: automated exposure control; mA and/or kV adjustment per patient size (includes targeted exams where dose is matched to clinical indication); or iterative reconstruction. Contrast material: OMNI 350; Contrast volume: 95 ml; Contrast route: INTRAVENOUS (IV); COMPARISON: CT head wo con* [id number] 06/04/2021 3:02 PM RADIATION DOSE METRICS: Total DLP (mGy-cm): 1964.5 FINDINGS: Right common carotid artery: No stenosis. No dissection or occlusion. Right internal carotid artery: No stenosis of the extracranial segment. No dissection or occlusion. Right external carotid artery: No occlusion or stenosis of the origin. Left common carotid artery: No stenosis. No dissection or occlusion. Left internal carotid artery: No stenosis of the extracranial segment. No dissection or occlusion. Left external carotid artery: No occlusion or stenosis of the origin. Right vertebral artery: No stenosis. No dissection or occlusion. Left vertebral artery: No stenosis. No dissection or occlusion. Soft tissues: Unremarkable. No significant soft tissue swelling. Bones/joints: No visible acute osseous abnormality. Degenerative disease and degenerative disc disease of the cervical spine of moderate severity C5/C6 and C6/C7 with mild reversal normal cervical lordosis. Lungs: Mild peripheral acinar emphysema of the lung apices. CT/CT angio headneck* [id number] IMPRESSION: No stenosis or occlusion. REFERENCES: NASCET CRITERIA. The degree of internal carotid artery stenosis is based on NASCET criteria. Normal is no stenosis. Mild is less than 50% stenosis. Moderate is 50-69% stenosis. Severe is 70% to 99% stenosis. Total occlusion is no detectable patent lumen. Radiation Dose CTDIVOL = (mGy): DLP = 1964.5~1964.5 (mGy-cm)
[2021-06-04] MEDS: iohexol 350 mg/mL 100 mL Btl IV (16:07)
[2021-06-04] MEDS: orphenadrine 30 mg/mL Inj 2 mL 60 MG IVP (17:00)
[2021-06-04 17:38] VITALS: BP 135/89; PULSE 82; RESP 16; O2SAT 98
--- NOTE | 2021-06-05 15:04 | DCPLANNER ---
Addendum entered by Rita Wang 06/06/21 07:38: dispatch manager was told that clinic called patient to schedule an appointment, unable to speak with patient at this time. A voicemail was left for patient to call clinic to schedule an appointment. Original Note: dispatch manager had message to schedule a follow up appointment for patient with neurology. dispatch manager emailed patients information to the neurology clinic. Patients information will be printed and reviewed. Clinic will call patient with appointment information.
== END 2021-06-04 18:17 | disposition home or self-care (01) ==
PROVIDERS: Physician Assistant; Emergency Provider Physician Assistant; PCP Family Medicine
DX: G43.809 Other migraine, not intractable, without status migrainosus (principal); F17.210 Nicotine dependence, cigarettes, uncomplicated
CPT/HCPCS: 70450; 70496; 70498; 80053; 85025; 85610; 85730; 96374; 99283; J2360; Q9967

== ENCOUNTER → 2021-07-04 10:06 | Outpatient (BNVA) | payer MEDICARE, SELFPAY | PROVIDERS: PCP Family Medicine; Visit Provider Specialist | DX: G43.109 Migraine with aura, not intractable, without status migrainosus (principal); M62.81 Muscle weakness (generalized); H54.7 Unspecified visual loss; J01.90 Acute sinusitis, unspecified; F17.210 Nicotine dependence, cigarettes, uncomplicated | CPT/HCPCS: 99204; 99205 ==

== ENCOUNTER 2021-07-05 12:28 | Outpatient (CLI) | payer MEDICARE, SELFPAY ==
[2021-07-05 13:45] LABS: C Reactive Protein 5.7 mg/L (0.0-4.9); Creatine Phosphokinase 80 U/L (26-192)
[2021-07-06 11:46] LABS: COMPLEMENT COMPONENT C3C 160 mg/dL (83-193); COMPLEMENT COMPONENT C4C 14 mg/dL (15-57)
[2021-07-06 14:32] LABS: CENTROMERE B ANTIBODY <1.0 NEG AI (<1.0 NEG); JO-1 ANTIBODY <1.0 NEG AI (<1.0 NEG); RNP ANTIBODY <1.0 NEG AI (<1.0 NEG); SCL-70 ANTIBODY <1.0 NEG AI (<1.0 NEG); SJOGREN'S ANTIBODY (SS-A) <1.0 NEG AI (<1.0 NEG); SM ANTIBODY <1.0 NEG AI (<1.0 NEG); SS-B <1.0 NEG AI (<1.0 NEG)
[2021-07-06 14:58] LABS: THYROID PEROXIDASE ANTIBODIES 1 IU/mL (<9)
[2021-07-06 15:29] LABS: Erythrocyte Sedimentation Rate 6 mm/hr (0-15)
[2021-07-06 16:52] LABS: ANA SCREEN, IFA NEGATIVE (NEGATIVE)
[2021-07-07 12:23] LABS: COMPLEMENT, TOTAL (CH50) 59 U/mL (31-60)
[2021-07-08 17:22] LABS: DNA AB (DS) CRITHIDIA,IFA NEGATIVE (NEGATIVE)
== END 2021-07-05 12:29 | disposition home or self-care (01) ==
PROVIDERS: PCP Family Medicine; Visit Provider Specialist
DX: M62.81 Muscle weakness (generalized) (principal)
CPT/HCPCS: 36415; 82550; 85651; 86140; 86160; 86162; 86235; 86255; 86376

== ENCOUNTER 2021-09-07 11:17 | Outpatient (CLI) | payer MEDICARE, SELFPAY ==
--- NOTE | 2021-09-07 11:39 | MM_ITS ---
WS: [email or web address] BILATERAL DIGITAL DIAGNOSTIC MAMMOGRAM MAMMOGRAPHY WITH CAD CLINICAL INFORMATION: LUMP OR MASS IN BREAST COMPARISON: None. TECHNIQUE: Bilateral CC, MLO, and ML views. FINDINGS: History of breast reduction. Reported Palpable nodule LEFT breast. Scattered fibroglandular densities bilaterally. Palpable marker lower inner quadrant LEFT breast. A f ew asymmetric densities in this area. Ultrasound is described below Additional more focal 9 mm asymmetric density upper outer LEFT breast anterior depth. Recommend spot compression views and ultrasound of this area for further evaluation. RIGHT breast is unremarkable. Dense dystrophic calcification posterior LEFT breast. ULTRASOUND BREAST LEFT TECHNIQUE: Ultrasound left breast focused area of concern. CLINICAL INFORMATION: LUMP OR MASS IN BREAST COMPARISON: None. FINDINGS: Ultrasound LEFT breast at the 7:00 and 8:00 positions. At the 7:00 position is an ill-defined hypoech oic ductal or branching lesion measuring 1.0 x 1.0 x 0.8 cm. This corresponds to the palpable abnorma lity. In addition, at the 8:00 position in an additional area of palpable concern, is a hypoechoic solid ap pearing ovoid lesion measuring 0.7x 0.6 x 0.4 cm. Recommend ultrasound-guided biopsy of both of these areas for further evaluation. MM/[place] [id number] IMPRESSION: BI-RADS: 0-Incomplete: Need additional imaging evaluation FOLLOW UP: Need Additional Imaging ULTRASOUND GUIDED BIOPSY RECOMMENDED OF THE 2 HYPOECHOIC LESIONS LEFT BREAST WH ICH CORRESPOND TO AREAS OF PALPABLE CONCERN IN ADDITION, RECOMMEND DIAGNOSTIC MAMMOGRAPHY AND SPOT COMPRESSION VIEWS WITH U LTRASOUND OF THE ASYMMETRIC DENSITY UPPER OUTER LEFT BREAST MEASURING 9 MM.
== END 2021-09-07 11:18 | disposition home or self-care (01) ==
LOC: RADSHAW 11:29
PROVIDERS: PCP Family Medicine; Visit Provider Family Medicine
DX: N63.21 Unspecified lump in the left breast, upper outer quadrant (principal)
CPT/HCPCS: 72072; 76642; 77066

== ENCOUNTER 2021-10-24 07:55 | Outpatient (CLI) | payer MEDICARE, SELFPAY ==
--- NOTE | 2021-10-24 08:01 | MM_ITS ---
WS: [email or web address] LEFT 3D TOMOSYNTHESIS DIGITAL MAMMOGRAPHY WITH CAD CLINICAL INFORMATION: LT BREAST LUMP/MASS COMPARISON: September 07, 2021 TECHNIQUE: 5 views of the left breast were obtained. FINDINGS: Scattered fibroglandular densities of the left breast. Dystrophic calcification posterior breast. Sta ble 9 mm ovoid density upper outer LEFT breast. Ultrasound is pending. ULTRASOUND BREAST LEFT TECHNIQUE: Ultrasound left breast focused area of concern. CLINICAL INFORMATION: LT BREAST LUMP/MASS COMPARISON: None. FINDINGS: Ultrasound LEFT breast 3:00 1 cm from the nipple. There is a 7.3 x 4.4 x 8.1 mm lobulated hypoechoic lesion that is indeterminant. Recommend further evaluation of this area also with ultrasound-guided b iopsy. MM/MM tomosynthesis diag [id number] IMPRESSION: BI-RADS: 4-Suspicious Finding-Biopsy Should Be Considered FOLLOW UP: US Guided Biopsy Recommended
== END 2021-10-24 07:56 | disposition home or self-care (01) ==
LOC: RAD 07:55
PROVIDERS: PCP Family Medicine; Visit Provider Family Medicine
DX: N63.25 Unspecified lump in the left breast, overlapping quadrants (principal)
CPT/HCPCS: 76642; 77061

== ENCOUNTER 2021-11-03 13:58 | Outpatient (CLI) | payer MEDICARE, SELFPAY ==
--- NOTE | 2021-11-03 | US_ITS ---
WS: [id number] ULTRASOUND-GUIDED LEFT BREAST BIOPSY x 3. HISTORY: Multiple suspicious areas in the LEFT breast. COMPARISON: 10/24/2021, 09/07/2021 Procedure, risks and complications are explained to the patient. Medications are reviewed. Consent is obtained. Masses x 3 in the LEFT breast are localized with ultrasound. Skin is cleansed with ChloraPrep and ane sthetized with 1% buffered lidocaine. Small dermatome is made at each biopsy site. Under sterile cond itions each mass is biopsied with a 14-gauge Achieve needle. Multiple core biopsies are performed. Ilya byrd placed in formalin and sent to pathology for review. No complications encountered. First biopsy: 3:00 axis. Marked with Bard ultra clip breast tissue marker. Enhanced ribbon. Second biopsy: 7:00 axis. Marked with Bard ultra clip breast tissue marker. Enhanced ribbon. Third biopsy: 8:00 axis. Marked with a Secure sunny titanium biopsy site marker. Patient left the radiology suite with no complications. Patient is instructed to [place] [facility] [place] [facility] with any concerns. US/[place] [id number] IMPRESSION: 1. Uncomplicated core needle biopsy LEFT breast 3:00 axis. PATHOLOGY: Benign breast tissue with fibrocystic changes. No malignancy. RECOMMENDATION: Diagnostic LEFT mammogram 6 months. 2. Uncomplicated core needle biopsy LEFT breast 7:00 axis. PATHOLOGY: Benign breast tissue with fibrocystic changes and stromal sclerosis. No malignancy. RECOMMENDATION: Diagnostic LEFT mammogram 6 months. 3. Uncomplicated core needle biopsy LEFT breast 8:00 axis. PATHOLOGY: Benign fibroadipose tissue. No malignancy. RECOMMENDATION: Diagnostic LEFT mammogram 6 months.
--- NOTE | 2021-11-03 | US_ITS ---
WS: [id number] ULTRASOUND-GUIDED LEFT BREAST BIOPSY x 3. HISTORY: Multiple suspicious areas in the LEFT breast. COMPARISON: 10/24/2021, 09/07/2021 Procedure, risks and complications are explained to the patient. Medications are reviewed. Consent is obtained. Masses x 3 in the LEFT breast are localized with ultrasound. Skin is cleansed with ChloraPrep and ane sthetized with 1% buffered lidocaine. Small dermatome is made at each biopsy site. Under sterile cond itions each mass is biopsied with a 14-gauge Achieve needle. Multiple core biopsies are performed. Ilya byrd placed in formalin and sent to pathology for review. No complications encountered. First biopsy: 3:00 axis. Marked with Bard ultra clip breast tissue marker. Enhanced ribbon. Second biopsy: 7:00 axis. Marked with Bard ultra clip breast tissue marker. Enhanced ribbon. Third biopsy: 8:00 axis. Marked with a Secure sunny titanium biopsy site marker. Patient left the radiology suite with no complications. Patient is instructed to return [place] [facility] [place] [facility] with any concerns. US/[place] [id number] IMPRESSION: 1. Uncomplicated core needle biopsy LEFT breast 3:00 axis. PATHOLOGY: Benign breast tissue with fibrocystic changes. No malignancy. RECOMMENDATION: Diagnostic LEFT mammogram 6 months. 2. Uncomplicated core needle biopsy LEFT breast 7:00 axis. PATHOLOGY: Benign breast tissue with fibrocystic changes and stromal sclerosis. No malignancy. RECOMMENDATION: Diagnostic LEFT mammogram 6 months. 3. Uncomplicated core needle biopsy LEFT breast 8:00 axis. PATHOLOGY: Benign fibroadipose tissue. No malignancy. RECOMMENDATION: Diagnostic LEFT mammogram 6 months.
--- NOTE | 2021-11-03 14:10 | US_ITS ---
WS: [id number] ULTRASOUND-GUIDED LEFT BREAST BIOPSY x 3. HISTORY: Multiple suspicious areas in the LEFT breast. COMPARISON: 10/24/2021, 09/07/2021 Procedure, risks and complications are explained to the patient. Medications are reviewed. Consent is obtained. Masses x 3 in the LEFT breast are localized with ultrasound. Skin is cleansed with ChloraPrep and ane sthetized with 1% buffered lidocaine. Small dermatome is made at each biopsy site. Under sterile cond itions each mass is biopsied with a 14-gauge Achieve needle. Multiple core biopsies are performed. Ilya byrd placed in formalin and sent to pathology for review. No complications encountered. First biopsy: 3:00 axis. Marked with Bard ultra clip breast tissue marker. Enhanced ribbon. Second biopsy: 7:00 axis. Marked with Bard ultra clip breast tissue marker. Enhanced ribbon. Third biopsy: 8:00 axis. Marked with a Secure sunny titanium biopsy site marker. Patient left the radiology suite with no complications. Patient is instructed to return to [facility] or [facility] with any concerns. US/[place] [id number] IMPRESSION: 1. Uncomplicated core needle biopsy LEFT breast 3:00 axis. PATHOLOGY: Benign breast tissue with fibrocystic changes. No malignancy. RECOMMENDATION: Diagnostic LEFT mammogram 6 months. 2. Uncomplicated core needle biopsy LEFT breast 7:00 axis. PATHOLOGY: Benign breast tissue with fibrocystic changes and stromal sclerosis. No malignancy. RECOMMENDATION: Diagnostic LEFT mammogram 6 months. 3. Uncomplicated core needle biopsy LEFT breast 8:00 axis. PATHOLOGY: Benign fibroadipose tissue. No malignancy. RECOMMENDATION: Diagnostic LEFT mammogram 6 months.
== END 2021-11-03 13:59 | disposition home or self-care (01) ==
LOC: RAD 14:00
PROVIDERS: PCP Family Medicine; Visit Provider Family Medicine
DX: N63.25 Unspecified lump in the left breast, overlapping quadrants (principal); N63.24 Unspecified lump in the left breast, lower inner quadrant
CPT/HCPCS: 19083; 19084; 88305

== ENCOUNTER → 2021-12-13 09:17 | Outpatient (BNVA) | payer MEDICARE, SELFPAY | PROVIDERS: PCP Family Medicine; Visit Provider Otolaryngology | DX: J32.9 Chronic sinusitis, unspecified (principal); Z87.891 Personal history of nicotine dependence | CPT/HCPCS: 99203 ==

== ENCOUNTER 2022-04-30 10:59 | Outpatient (CLI) | payer MEDICARE, SELFPAY ==
--- NOTE | 2022-04-30 11:41 | MM_ITS ---
WS: [email or web address] DIAGNOSTIC LEFT DIGITAL TOMOSYNTHESIS MAMMOGRAPHY WITH CAD. HISTORY: FIBROCYSTIC BREAST CHANGES;LUMP/MASS IN BREASTLT 6 MO F/U COMPARISON: None available. Technique: CC, MLO and ML views, tomosynthesis. Spot compression LEFT CC. Breast composition: There are scattered areas of fibroglandular density. Biopsy clips are noted in t he medial and lateral LEFT breast. There has been no increase in size of the asymmetries have been pr eviously described and biopsied. Asymmetry within the medial breast has nearly resolved. No increasin g mass. Dense calcification in the posterior LEFT breast from fibroadenoma. MM/[place] [id number] IMPRESSION: BI-RADS: 2-Benign FOLLOW UP: 1 Year Follow-up
== END 2022-04-30 11:00 | disposition home or self-care (01) ==
PROVIDERS: PCP Family Medicine; Visit Provider Family Medicine
DX: R92.8 Other abnormal and inconclusive findings on diagnostic imaging of breast (principal); N63.20 Unspecified lump in the left breast, unspecified quadrant
CPT/HCPCS: 77061

== ENCOUNTER → 2022-05-09 10:59 | Outpatient (BNVA) | payer MEDICARE, SELFPAY | PROVIDERS: PCP Family Medicine; Visit Provider Surgery | DX: N63.20 Unspecified lump in the left breast, unspecified quadrant (principal); N64.4 Mastodynia | CPT/HCPCS: 99203 ==

== ENCOUNTER 2022-06-15 11:03 | Outpatient (CLI) | payer MEDICARE, SELFPAY ==
--- NOTE | 2022-06-15 11:00 | MR_ITS ---
WS: [email or web address] MRI CERVICAL SPINE NONCONTRAST HISTORY: Neck and upper back pain. Bilateral arm numbness and tingling. COMPARISON: None available. Technique: Multiplanar, multisequence noncontrast imaging of the cervical spine. Very slight retrolisthesis of C5 by less than 2 mm. Mild diffuse disc space narrowing and desiccation and vertebral body osteophytosis. Signal within the cervical cord is normal. Visualized posterior fossa is unremarkable. Craniocervical junction, C1 and C2 relationship, odontoid process and soft tissues are normal. C2-C3: Normal. C3-C4: Very shallow central disc protrusion. No stenosis. C4-C5: Mild bilateral facet joint arthritis and small foraminal osteophytes. No stenosis. C5-C6: Diffuse osteophytic ridging and annular disc bulging. Moderate bilateral facet joint arthritis . Mild central and moderate bilateral foraminal stenosis. C6-C7: Mild annular disc bulging and osteophytic ridging. Mild central and moderate foraminal stenosi s. Moderate facet joint arthritis. C7-T1: Normal. Paraspinal soft tissue are normal. MR/MR cervical spin wo con* [id number] IMPRESSION: 1. No high-grade central stenosis. 2. Mild central and moderate bilateral foraminal stenosis at C5-6 and C6-7 due to combination of osteophytes and facet and disc disease.
--- NOTE | 2022-06-15 11:45 | MR_ITS ---
WS: [email or web address] MRI THORACIC SPINE with and without contrast. HISTORY: M54.6 - Pain in thoracic spine COMPARISON: None available. TECHNIQUE: Multiplanar sequences are performed in sagittal and axial planes. Post contrast imaging Mu ltiHance 16 mL IV. Normal posterior alignment. Mild disc space narrowing and desiccation throughout the thoracic spine. No marrow edema or fractures. Signal within the cord is normal. Conus tapers normally and ends at T12 . No areas of demyelination or enhancement. T1-2: Motion artifact. T2-3: Motion artifact. T3-4: Mild bilateral facet joint arthritis. T4-5: Normal. T5-6: Normal. T6-7: Tiny central disc protrusion and facet joint arthritis. No stenosis. T7-8: Moderate central disc protrusion with near contact on the cord. Mild facet arthritis. T8-9: Moderate central disc protrusion. Mild facet arthritis. T9-10: Mild disc bulging and facet arthritis. T10-11: Normal. T11-12: Normal. Paravertebral soft tissues are normal. No enhancing masses are identified. MR/MR thoracic spine wo/w [id number] IMPRESSION: 1. No high-grade central or foraminal stenosis. 2. Disc protrusions at T6-7, T7-8 and T8-9. No cord compression or stenosis. 3. No areas of demyelination or contrast enhancement. No mass identified.
[2022-06-15] MEDS: gadobenate dimeglumine 20 mL vial IV (12:22)
== END 2022-06-15 11:04 | disposition home or self-care (01) ==
PROVIDERS: PCP Family Medicine; Visit Provider Physician Assistant
DX: M50.30 Other cervical disc degeneration, unspecified cervical region (principal); M51.24 Other intervertebral disc displacement, thoracic region
CPT/HCPCS: 72141; 72157; A9577

== ENCOUNTER → 2022-06-19 12:38 | Outpatient (BNVA) | payer MEDICARE, SELFPAY | PROVIDERS: PCP Family Medicine; Visit Provider Orthopaedic Surgery | DX: M47.814 Spondylosis without myelopathy or radiculopathy, thoracic region (principal); R25.2 Cramp and spasm | CPT/HCPCS: 99214 ==

== ENCOUNTER → 2022-09-10 08:27 | Outpatient (BNVA) | payer MEDICARE, SELFPAY | PROVIDERS: PCP Family Medicine; Visit Provider Otolaryngology | DX: J32.9 Chronic sinusitis, unspecified (principal); J33.9 Nasal polyp, unspecified | CPT/HCPCS: 99213 ==

== ENCOUNTER 2022-09-24 12:30 | Outpatient (CLI) | payer MEDICARE, SELFPAY ==
--- NOTE | 2022-09-24 12:45 | CT_ITS ---
WS: [email or web address] CT SINUSES TECHNIQUE: Noncontrast CT of the paranasal sinuses with coronal and sagittal reformatted images. CLINICAL INFORMATION: chronic sinusitis. COMPARISON: None. DLP: 378.[address] scans at [facility] use at least one of these dose optimization techniques: automated e xposure control; mA and/or kV adjustment per patient size (includes targeted exams where dose is matc hed to clinical indication); or iterative reconstruction. FINDINGS: Sinusitis with inspissated secretions in the paranasal sinuses. Near complete opacification of the pa ranasal sinuses. Air-fluid level within the RIGHT maxillary sinus. Complete opacification of the LEFT maxillary sinus. Opacification of the ostiomeatal units bilaterally. Minimal nasal septal deviation. Opacification of the LEFT greater than RIGHT ethmoid air cells. Opacification of the LEFT sphenoid s inus and bilateral sphenoid sinus ostia. Complete opacification of the frontal sinuses and frontal et hmoidal recesses. Mastoid air cells are well aerated. Normal parapharyngeal fat. Vascular calcification. CT/CT sinus wo con* [id number] IMPRESSION: 1. Extensive paranasal sinusitis with inspissated secretions. 2. Complete opacification frontal sinuses, LEFT greater than RIGHT ethmoid air cells, and LEFT sphenoid sinus. Complete opacification of the LEFT maxillary s inus. Air-fluid level in the RIGHT maxillary sinus. 3. Mastoid air cells are well aerated. 4. Normal posterior nasopharynx. Normal parapharyngeal fat.
== END 2022-09-24 12:31 | disposition home or self-care (01) ==
LOC: RAD 12:34
PROVIDERS: PCP Family Medicine; Visit Provider Otolaryngology
DX: J32.9 Chronic sinusitis, unspecified (principal)
CPT/HCPCS: 70486

== ENCOUNTER → 2022-10-02 09:33 | Outpatient (BNVA) | payer MEDICARE, SELFPAY | PROVIDERS: PCP Family Medicine; Visit Provider Otolaryngology | DX: J32.9 Chronic sinusitis, unspecified (principal); J33.9 Nasal polyp, unspecified | CPT/HCPCS: 99214; 99215 ==

== ENCOUNTER 2022-10-25 10:41 | Day surgery (SDC) | payer MEDICARE, SELFPAY ==
[2022-10-24 13:22] VITALS: BMI 28.3
[2022-10-25] VITALS (15 sets, daily range): BP systolic 121–164; BP diastolic 82–104; PULSE 59–75; RESP 12–20; TEMP 36.4–36.7; O2SAT 94–99
[2022-10-25] MEDS: sodium chloride 0.9% 1,000 ML 30 ML IV (11:17)
--- NOTE | 2022-10-25 11:42 | W.PM.OPSUD ---
Surgery/Procedure H&P Update DATE OF PROCEDURE: October 25, 2022 DATE H&P PERFORMED: 10/02/22 H&P UPDATE INFORMATION: I have reviewed H&P completed within last 30 days, I have examined patient prior to procedure and No changes to prior documentation CHANGES TO PREVIOUS DOCUMENTATION: Same PREOP DIAGNOSIS: Chronic pansinusitis/nasal polyposis PRIMARY INDICATION FOR PROCEDURE: Chronic pansinusitis with nasal polyposis PLANNED PROCEDURE: Operation Date: 10/25/22 12:15 Proposed Procedures p Antrostomy Bilateral Antrostomy [id number],58702,J32.9,J33.9(Bilateral) - Tc Friedman MD s Maxillary Sinusectomy(Bilateral) - Tc Friedman MD p bilateral total ethmoidectomy(Bilateral) - Tc Friedman MD s bilateral frontal sinusectomy(Bilateral) - Tc Friedman MD s Sphenoidectomy(Bilateral) - Tc Friedman MD s bilateral nasal polypectomy(Bilateral) - Tc Friedman MD
[2022-10-25] MEDS: HYDROmorphone 1 mg/mL INJ 1 mL 0.5 MG IVP (12:17)
[2022-10-25] MEDS: scopolamine 1.5 Patch 1 PATCH TRANSDERMA (12:33)
--- NOTE | 2022-10-25 12:55 | ANES.PREANE2 ---
Pre-Anesthetic Assessment Height/Weight: Height 1.63 m Weight 74.843 kg Temp Pulse Resp BP Pulse Ox O2 Del Method 97.6 F 63 16 121/84 98 10/25/22 10:57 10/25/22 10:57 10/25/22 10:57 10/25/22 10:57 10/25/22 10:57 10/25/22 11:09 Preop Diagnosis: Chronic pansinusitis/nasal polyposis Operation Date: 10/25/22 12:15 Proposed Procedures p Antrostomy Bilateral Antrostomy 75731,[id number],J32.9,J33.9(Bilateral) - Tc Friedman MD s Maxillary Sinusectomy(Bilateral) - Tc Friedman MD p bilateral total ethmoidectomy(Bilateral) - Tc Friedman MD s bilateral frontal sinusectomy(Bilateral) - Tc Friedman MD s Sphenoidectomy(Bilateral) - Tc Friedman MD s bilateral nasal polypectomy(Bilateral) - Tc Friedman MD Familial anesthetic complications: none Was Beta Marques taken within 24 hours: N/A Was Clonidine taken within 24 hours: N/A Last intake: Intake Last Liquid Date 10/24/22 Last Liquid Time 23:30 Last Solid Date 10/24/22 Last Solid Time 19:00 Social Tobacco and No alcohol Exam alert and oriented x 3 Airway Submandibular: within normal limits Cervical ROM: within normal limits Mallampati: Class II Dentition: full History/ROS No significant history except as noted Pulmonary Asthma CV/HEM None reported None reported Hepatic None reported GI Gastroesophageal Reflux Disease Metabolic None reported Musc/skel Osteoarthritis/DJD Neuropsych None reported Anesthetic Plan ASA status: 3 Anesthesia: Anesthesia Evaluation and General Risk of > 500 ml blood loss (7ml/kg in children): No Medications/Allergies Home Medications Medication Instructions Recorded Confirmed Last Taken Type baclofen 10 mg tablet 10 mg PO TID 10/15/19 10/24/22 10/24/22 History estradiol 0.5 mg tablet 0.5 mg PO DAILY 10/15/19 10/24/22 10/24/22 History albuterol sulfate 90 mcg/actuation 2 puff inhalation Q6H PRN 11/17/19 10/24/22 10/24/22 Rx aerosol inhaler (ProAir HFA) shortness of breath or wheezing #8.5 grams trazodone 150 mg tablet 100 mg PO .AT BEDTIME 07/14/20 10/24/22 10/24/22 History levothyroxine 112 mcg tablet 112 mcg PO DAILY 07/04/21 10/24/22 10/24/22 History (Synthroid) cetirizine 10 mg capsule (Zyrtec) 10 mg PO DAILY PRN Allergic 12/13/21 10/24/22 10/25/22 History Symptoms pseudoephedrine HCl 30 mg capsule 30 mg PO Q6H 12/13/21 10/24/22 Unknown History (abuse-resistant) (Nasal Decongestant (pseudoephedrine)) Allergies Allergy/AdvReac Type Severity Reaction Status Date / Time Penicillins AdvReac Severe ALGY-Anaphy Verified 10/25/22 11:04 laxis fluticasone AdvReac Mild UNKNOWN Verified 10/24/22 13:09 ketorolac [From Toradol] AdvReac Mild UNKNOWN Verified 10/24/22 13:09 midazolam [From Versed] AdvReac Mild UNKNOWN Verified 10/24/22 13:09 Current Medications Generic Name Dose Route Start Last Admin Trade Name Freq PRN Reason Stop Dose Admin Hydromorphone HCl 0.5 mg 10/25/22 10:57 10/25/22 12:17 Hydromorphone 1 Mg/Ml Inj 1 Ml IVP 0.5 mg ONCE PRN Administration For preop pain/anxiety Sodium Chloride 1,000 mls @ 30 mls/hr 10/25/22 11:00 10/25/22 11:17 Sodium Chloride 0.9% IV 10/26/22 10:59 30 mls/hr .Q24H MUNIR Administration PFSH Anesthesia Medical History Chronic cystitis with hematuria Chronic diarrhea Cindi's thyroiditis History of renal stone Inflammatory bowel disease Insomnia Major depressive disorder Muscle cramps Nasal polyps Osteoarthritis PTSD (post-traumatic stress disorder) Surgical History H/O section H/O tubal ligation H/O: hysterectomy History of appendectomy History of bilateral breast reduction surgery History of salpingo-oophorectomy Family History Other CAD (coronary artery disease) Cancer Diabetes Multiple sclerosis Social History Smoking and tobacco status: current every day smoker cigarettes Packs smoked per day: 0.1 Alcohol intake: current Alcohol intake frequency: holidays/special occasions only Data Anesthesia Cardiac Studies: Echocardiogram Ultrasound 07/25/20 Sestamibi Stress Test (Cardiology) 07/24/20
[2022-10-25] MEDS: ceFAZolin 2,000 MG in sodium chloride 0.9% (plus) 50 ML 100 MG IV (13:08)
[2022-10-25] MEDS: neomycin-poly-bacitracin oint 28 gm 1 APPLIC TOPICAL (13:41)
[2022-10-25] MEDS: oxymetazoline 0.05% Nasal Spray 15 mL 1 SPRAY NOSTRIL-B (13:42)
[2022-10-25] MEDS: lidocaine-epi 2% 1.7mL Cartridge (OR Only) 8.5 ML XX (13:43)
--- NOTE | 2022-10-25 14:22 | P.OP_ITS ---
Operative Report Date of procedure: October 25, 2022 Pre-op diagnosis: Preop Diagnosis Chronic pansinusitis/nasal polyposis Post-op diagnosis: Same Post-op findings: Left sided massive nasal polyps with sinuses filled with inspissated mucus. Right side less polyps but still with inspissated mucus in all sinuses. Procedure done: Endoscopic sinus surgery including bilateral antrostomy with maxillary sinusectomy, bilateral total ethmoidectomy, bilateral frontal sinusectomy, bilateral sphenoidectomy, bilateral extensive nasal polypectomy. Implants: 2 Telfa packs Specimens removed/disposition: Contents of nasal cavities bilaterally with contents of all 4 sinuses on each side. Pathology: Contents of nasal cavity and sinuses left and right. Surgeon: Tc Friedman MD Anesthesia: General and Local Estimated blood loss: 100 mL Complications: No complications encountered Findings: Significant layers of nasal polyps on left side from anterior to posterior. All sinuses filled with inspissated mucus and polyps. Brief History: 56-year-old female patient with chronic pansinusitis. Significant headaches and chronic purulent discharge and extensive nasal polyposis left side greater than right. CT scan findings show the same. Patient is to be brought to the operating room at this time to undergo endoscopic sinus surgery with removal of all nasal polyps as well as extensive opening of the sinuses with debridement. All 8 sinuses will be debrided. The procedure its risks and complications of been explained in detail. These risks include bleeding infection numbness scarring swelling bruising potential injury to orbit and orbital contents including loss of vision or blurred vision potential injury to teeth or teeth roots potential CSF leak meningitis brain abscess heart attack stroke or not carmita viving the surgery. Patient also understands that there is a high likelihood of polyp recurrence and sinusitis recurrence in the future. Long-term treatment will be necessary to keep things under control. With all of this discussed the patient gave informed consent and this was witnessed. Procedure: Description of procedure: The patient was placed on the operating table in the supine position. Adequate general endotracheal tube anesthesia was obtained. She was given antibiotics for prophylaxis and steroids IV. The patient's nose was packed with cottonoids soaked in 12-hour Afrin. Nasal hairs were trimmed with scissors. Afrin packs were removed. The nose was injected laterally in the anterior aspect of the inferior turbinate lateral nasal wall and superiorly. Sublabial areas were also infiltrated as were the greater [place] canals bilaterally. A total of 8.5 mL of 2% Xylocaine with 1-100,000 epinephrine was utilized. The Afrin packs were reapplied to the nose. The patient was prepped and draped in usual fashion. A timeout was accomplished identifying the patient date of plan procedure allergies fire risk and medications given. With all in agreement the procedure continued. The packs removed from the left side of the nose. Massive polyposis was noted on the left side. These were removed in a piecemeal fashion using straight and up-biting Cam forceps. The middle turbinate was basically replaced by polyps. Polyps were hanging out of the natural ostia on the left ostiomeatal complex. Polyps were removed from this opening. Contents of the sinus were removed directly and with suction and irrigation. Inspissated mucus found throughout. Then the dissection of further polyps up in the ethmoid sinus. Anterior and posterior compartments were debrided. Then the face of the sphenoid sinus was identified and this was opened and enlarged to about 1 cm x 5 mm. Thick inspissated mucus was removed from that sinus as well along with some polypoid changes. Then attention was turned to the anteriormost portion of the anterior ethmoid cells on the left side. This was debrided with up-biting force ps. Then a suction tip that was curved was inserted into the frontal recess and into the frontal sinus. This revealed thick inspissated mucus. This was irrigated repeatedly until clean. Large globs of mucopus were found and removed. The nose was packed on the left side with Afrin packs. The right side was done in a similar fashion with similar findings. Not as bad on the right side as the left. Then all the sinuses were irrigated with saline and suctioned clean. 2 Telfa packs were cut to size coated with Neosporin and 1 was applied into each side of the nose anterior to posterior. Drip pad was applied to the patient's nose after cleansing of the face. Patient was then returned to anesthesia for wake-up and extubation. The patient tolerated the procedure well had an estimated blood loss of 100 mL and arrived in recovery in stable condition.
--- NOTE | 2022-10-25 14:47 | PC.NURSE ---
patient combative on arrival. Unable to get vs immediately
[2022-10-25] MEDS: ondansetron 2 mg/ML SDV 2 mL 4 MG IVP ×2 (14:54→15:01)
[2022-10-25] MEDS: oxyCODONE-APAP 5-325 mg Tablet 2 TAB PO (15:39)
--- NOTE | 2022-10-25 16:08 | ANE.PACU2 ---
Inpatient post-anesthesia follow up: Airway intact: Yes Vital signs: Temperature 98.1 F Pulse Rate 75 Respiratory Rate 18 Blood Pressure 149/83 Pulse Oximetry 98 Oxygen Delivery Me thod Room Air Oxygen Flow Rate Fraction of Inspir ed Oxygen Hydration adequate: Yes Nausea and vomiting: No Pain level: 4 Mental status: Baseline Additional Comments: C/o abdominal pain?
== END 2022-10-25 16:15 | disposition home or self-care (01) ==
PROVIDERS: PCP Family Medicine; Visit Provider Otolaryngology
PROC: (CPT 31259; principal; 2022-10-25 12:05)
PROC: (CPT 31225; 2022-10-25 12:05)
PROC: (CPT 31259; 2022-10-25 12:05)
PROC: (CPT 31259; 2022-10-25 12:05)
PROC: (CPT 31259; 2022-10-25 12:05)
PROC: (CPT 31259; 2022-10-25 12:05)
DX: J32.9 Chronic sinusitis, unspecified (principal); J33.9 Nasal polyp, unspecified; F32.9 Major depressive disorder, single episode, unspecified; F17.210 Nicotine dependence, cigarettes, uncomplicated; J45.909 Unspecified asthma, uncomplicated; K21.9 Gastro-esophageal reflux disease without esophagitis; M19.90 Unspecified osteoarthritis, unspecified site
CPT/HCPCS: 31259; 31267; 31276; 88305; J0690; J1100; J1170; J1200; J2250; J2405; J2704; J2710; J3010; J3490; J7030

== ENCOUNTER → 2022-11-02 10:54 | Outpatient (BNVA) | payer MEDICARE, SELFPAY | PROVIDERS: PCP Family Medicine; Visit Provider Otolaryngology | DX: Z48.89 Encounter for other specified surgical aftercare (principal) | CPT/HCPCS: 99024 ==

== ENCOUNTER → 2022-11-14 10:29 | Outpatient (BNVA) | payer MEDICARE, SELFPAY | PROVIDERS: PCP Family Medicine; Visit Provider Otolaryngology | DX: Z48.89 Encounter for other specified surgical aftercare (principal); J32.9 Chronic sinusitis, unspecified | CPT/HCPCS: 99024; 99212 ==

== ENCOUNTER → 2023-01-22 15:23 | Outpatient (BNVA) | payer MEDICARE, SELFPAY | PROVIDERS: PCP Family Medicine; Visit Provider Otolaryngology | DX: J32.9 Chronic sinusitis, unspecified (principal) | CPT/HCPCS: 99024; 99212 ==

== ENCOUNTER 2023-08-02 08:34 | Outpatient (CLI) | payer MEDICARE, SELFPAY ==
--- NOTE | 2023-08-02 08:42 | US_ITS ---
WS: [id number] RIGHT UPPER QUADRANT ULTRASOUND HISTORY: RUQ ABD PAIN COMPARISON: 08/03/2020 Liver: 15.9 cm in length. Normal size liver and echogenicity. No bile duct dilatation or mass. Portal Vein: Normal hepatopetal flow with monophasic waveform. Gallbladder: Normally distended gallbladder with no stones or wall thickening. CBD: 0.3 cm Pancreas: Normal size and echogenicity. Right kidney: 10.1 cm in length. Normal size and echogenicity. No hydronephrosis or mass. Aorta and IVC: Unremarkable abdominal aorta and IVC. No ascites. IMPRESSION: Negative RIGHT upper quadrant ultrasound.
== END 2023-08-02 08:35 | disposition home or self-care (01) ==
LOC: RAD 08:36
PROVIDERS: PCP Family Medicine; Visit Provider Nurse Practitioner Family
DX: R10.11 Right upper quadrant pain (principal)
CPT/HCPCS: 76705

== ENCOUNTER 2023-10-01 14:01 | Emergency (ER) | payer MEDICARE, SELFPAY ==
[2023-10-01 14:29] VITALS: BP 135/82; PULSE 82; RESP 16; TEMP 36.7; O2SAT 97; BMI 26.9
[2023-10-01 14:50] LABS: Basophils # 0.1 10^3/uL (0.0-0.1); Basophils % 0.9 %; Eosinophils % 6.6 %; Lymphocytes # 2.7 10^3/uL (0.8-4.8); Lymphocytes % 17.2 %; Mean Corpuscular HGB Conc 34.7 g/dL (30-55); Mean Corpuscular Volume 92.2 fl (85-98); Mean Platelet Volume 11.2 fL (7.4-10.4); Monocytes # 0.8 10^3/uL (0.2-0.9); Monocytes % 5.2 %; Neutrophils # 10.85 10^3/uL (1.8-7.7); Neutrophils % 69.8 %; Nucleated Red Blood Cells % 0 %; Platelet Count 320 10^3/cmm (157-399); Red Blood Count 4.88 10^6/uL (3.85-5.65); Red Cell Distribution Width 12.4 % (12.1-15.1); White Blood Count 15.55 10^3/uL (3.29-11.43)
[2023-10-01 15:07] LABS: Alanine Aminotransferase 9 U/L (0-33); Albumin Level 4.3 g/dL (3.5-5.2); Alkaline Phosphatase 118 U/L (35-105); Anion Gap 17.8 (5-19); Aspartate Amino Transferase 11 U/L (0-32); Blood Urea Nitrogen 9 mg/dL (6-20); Calcium 9.1 mg/dL (8.5-10.5); Carbon Dioxide 23 mmol/L (22-29); Chloride 100 mmol/L (98-107); Creatinine Clr Calc Pharmacy 73.2794; Globulin 3.2 g/dL (1.3-4.6); Glomerular Filtration Rate 73.4 mL/min (90-130); Glucose 116 mg/dL (65-115); Osmolality Calculated 284 mOsm/kg (285-295); Potassium 3.8 mmol/L (3.5-5.1); Sodium 137 mmol/L (136-145); Total Bilirubin 0.4 mg/dL (0.15-1.2); Total Protein 7.5 g/dL (6.6-8.7)
[2023-10-01] MEDS: sodium chloride 0.9% 1,000 ML 999 ML IV (16:28)
[2023-10-01 16:35] VITALS: BP 134/74; PULSE 66; O2SAT 99
--- NOTE | 2023-10-01 16:37 | ED_ITS ---
Documented by User: EDUARDO Osborn 10/01/23 16:53 HPI - Nausea/Vomiting/Diarrhea 2 General: Chief complaint: Nausea/Vomiting/Diarrhea Stated complaint: diarrhea, dehydration Time Seen by Provider: 10/01/23 16:09 Source: patient Mode of arrival: ambulatory Limitations: no limitations History of Present Illness: Patient is a 57-year-old female with a history of microscopic colitis here for complaints of worsening diarrhea. Patient states she chronically has baseline diarrhea consisting of 3-5 stools daily. She states over the past week or so she has had closer to 20 stools daily. She states she will get like this when she has a colitis flare . Patient states she has been on many medications in the past for colitis but none of them seem to help. She states during the flare they will often place her on a prolonged steroid taper. She is not running fevers. She states the diarrhea has caused her to feel dehydrated and is complaining of muscle cramps and weakness. She reports abdominal cramping prior to defecation that alleviates following this. MD elicited complaint: diarrhea Pertinent past history: other (microscopic colitis) Onset (ago): day(s) Description of diarrhea: watery Associated nausea: Yes Associated abdominal pain: Yes Location of pain: Diffuse Radiation: diffuse Pain consistency: intermittent Severity: moderate Quality: cramping Exacerbating factors: eating Relieving factors: none Associated symtoms: Reports dizziness and nausea; Denies chest pain, dysuria, fatigue, headache(s) or malaise Review of Systems 2 Const: Denies: fever(s), chills, body aches, fatigue or malaise Card: Denies: chest pain Resp: Denies: dyspnea GI: Reports: abdominal pain, nausea, diarrhea and GI cramping; Denies: vomiting, rectal pain, hematochezia or melena : Denies: flank pain, dysuria or hematuria Musc: Reports: muscle cramps and muscle weakness; Denies: neck pain, back pain, extremity pain or joint pain Skin/Breast: Denies: rash Neuro: Reports: dizziness; Denies: headache(s), numbness in extremities, weakness in extremities or sensory changes PFSH ED 2 PFSH: Medical History Chronic cystitis with hematuria Major depressive disorder PTSD (post-traumatic stress disorder) Insomnia Osteoarthritis Muscle cramps Cindi's thyroiditis Nasal polyps Inflammatory bowel disease Chronic diarrhea History of renal stone Surgical History History of sinus surgery History of salpingo-oophorectomy H/O: hysterectomy H/O tubal ligation History of appendectomy History of bilateral breast reduction surgery H/O section Family History Other CAD (coronary artery disease) Cancer Diabetes Multiple sclerosis Social History Smoking and tobacco/nicotine status: current every day tobacco/nicotine user cigarettes Packs smoked per day: 0.1 Alcohol intake: current Alcohol intake frequency: holidays/special occasions only Substance/Drug Use: never Physical Exam 2 Const: COMMON NORMALS: no acute distress, average body habitus, patient oriented x3, no limitations, healthy appearing, alert and well nourished Resp: COMMON NORMALS: normal respiratory effort and clear to auscultation bilaterally AUSCULTATION: clear to auscultation bilaterally Cardio: COMMON NORMALS: regular rate and regular rhythm RATE: regular rate RHYTHM: regular rhythm GI: COMMON NORMALS: Normal to inspection, nondistended, normoactive bowel sounds present, Soft to palpation, No hepatosplenomegaly present and no masses INSPECTION: Yes normal to inspection AUSCULTATION: Yes normoactive bowel sounds PALPATION: Yes Soft to palpation, Yes Tenderness to palpation present (GI) (diffusely-non surgical), No Guarding due to palpation present (GI), No Rigid due to palpation and Yes No hepatosplenomegaly present : COMMON NORMALS: Yes no CVA tenderness BLADDER/KIDNEY EXAM: Yes no CVA tenderness Back/Pelvis: COMMON NORMALS: no CVA tenderness Extremity: GENERAL: Yes normal exam except as noted Neuro: PURVI COMA SCALE: document GCS findings Uprvi coma scale eye opening: Spontaneous Mesa coma scale verbal response: Orientated Mesa coma scale motor response: Obey commands Mesa coma scale total score: 15 COMMON NORMALS: patient oriented x3 SENSORIUM/ORIENTATION: Yes alert Skin: COMMON NORMALS: no rashes or lesions noted GENERAL SKIN EXAM: no rashes or lesions noted Course 2 Vital Signs: Vital signs: Vital Signs Temperature 98.1 F 10/01/23 14:29 Pulse Rate 70 10/01/23 17:24 Respiratory Rate 16 10/01/23 14:29 Blood Pressure 125/82 10/01/23 17:30 Pulse Oximetry 99 10/01/23 17:30 Oxygen Delivery Me thod Room Air 10/01/23 17:30 MDM - Nausea/Vomiting/Diarrhea Lab Data 10/01/23 14:42 10/01/23 14:42 Laboratory Results WBC 15.55 10^3/uL (3.29-11.43) H 10/01/23 14:42 RBC 4.88 10^6/uL (3.85-5.65) 10/01/23 14:42 Hgb 15.60 g/dL (11.27-16.99) 10/01/23 14:42 Hct 45.0 % (36-47) 10/01/23 14:42 MCV 92.2 fl (85-98) 10/01/23 14:42 MCH 32.0 pg (27-33) 10/01/23 14:42 MCHC 34.7 g/dL (30-55) 10/01/23 14:42 RDW 12.4 % (12.1-15.1) 10/01/23 14:42 Plt Count 320 10^3/cmm (157-399) 10/01/23 14:42 MPV 11.2 fL (7.4-10.4) H 10/01/23 14:42 Neut % (Auto) 69.8 % 10/01/23 14:42 Lymph % (Auto) 17.2 % 10/01/23 14:42 Hardee % (Auto) 5.2 % 10/01/23 14:42 Eos % (Auto) 6.6 % 10/01/23 14:42 Baso % (Auto) 0.9 % 10/01/23 14:42 Neut # (Auto) 10.85 10^3/uL (1.8-7.7) H 10/01/23 14:42 Lymph # (Auto) 2.7 10^3/uL (0.8-4.8) 10/01/23 14:42 Hardee # (Auto) 0.8 10^3/uL (0.2-0.9) 10/01/23 14:42 Eos # (Auto) 1.0 10^3/uL (0.0-0.8) H 10/01/23 14:42 Baso # (Auto) 0.1 10^3/uL (0.0-0.1) 10/01/23 14:42 Nucleated RBC % (auto) 0 % 10/01/23 14:42 Nucleated RBCs # 0.0 /100WBC 10/01/23 14:42 Sodium 137 mmol/L (136-145) 10/01/23 14:42 Potassium 3.8 mmol/L (3.5-5.1) 10/01/23 14:42 Chloride 100 mmol/L (98-107) 10/01/23 14:42 Carbon Dioxide 23 mmol/L (22-29) 10/01/23 14:42 Anion Gap 17.8 (5-19) 10/01/23 14:42 BUN 9 mg/dL (6-20) 10/01/23 14:42 Creatinine 0.8 mg/dL (0.5-0.9) 10/01/23 14:42 GFR Calculation 73.4 mL/min (90-130) L 10/01/23 14:42 Glucose 116 mg/dL (65-115) H 10/01/23 14:42 Calculated Osmolality 284 mOsm/kg (285-295) L 10/01/23 14:42 Lactic Acid 1.0 mmol/L (0.5-2.2) 10/01/23 14:42 Calcium 9.1 mg/dL (8.5-10.5) 10/01/23 14:42 Magnesium 1.9 mg/dL (1.7-2.3) 10/01/23 14:42 Total Bilirubin 0.4 mg/dL (0.15-1.2) 10/01/23 14:42 AST 11 U/L (0-32) 10/01/23 14:42 ALT 9 U/L (0-33) 10/01/23 14:42 Alkaline Phosphatase 118 U/L (35-105) H 10/01/23 14:42 Total Protein 7.5 g/dL (6.6-8.7) 10/01/23 14:42 Albumin 4.3 g/dL (3.5-5.2) 10/01/23 14:42 Globulin 3.2 g/dL (1.3-4.6) 10/01/23 14:42 Urine Color Yellow (Yellow) 10/01/23 14:04 Urine Appearance Hazy (CLEAR) A 10/01/23 14:04 Urine pH 6 (5-7) 10/01/23 14:04 Ur Specific [place] 1.020 (1.005-1.030) 10/01/23 14:04 Urine Protein Neg (Negative) 10/01/23 14:04 Urine Glucose (UA) Norm (Normal) 10/01/23 14:04 Urine Ketones Negative (Negative) 10/01/23 14:04 Urine Blood 3+ (Negative) H 10/01/23 14:04 Urine Nitrate Negative (Negative) 10/01/23 14:04 Urine Bilirubin Neg (Negative) 10/01/23 14:04 Urine Urobilinogen Norm mg/dL (Negative) 10/01/23 14:04 Ur Leukocyte Esterase Negative (Negative) 10/01/23 14:04 Urine RBC 5-10 /hpf (0-2) H 10/01/23 14:04 Urine WBC 0-4 /hpf (0-5) H 10/01/23 14:04 Ur Squamous Epith Cells 5-10 /hpf (0-5) H 10/01/23 14:04 Ur Transition Epith Cell 0-4 /hpf 10/01/23 14:04 Amorphous Sediment Not Reportable 10/01/23 14:04 Urine Bacteria Trace /hpf (NONE) 10/01/23 14:04 Urine Mucus Trace /hpf 10/01/23 14:04 C. difficile (PCR) Negative (Negative) 10/01/23 17:03 Discharge Plan Discharge Patient Disposition: Home Clinical Impression: Microscopic colitis Qualifiers: Microscopic colitis type: unspecified Qualified Code(s): K52.839 - Microscopic colitis, unspecified Condition: Stable Prescriptions: New prednisone 10 mg tablet 10 mg PO DAILY 10 Days Qty: 41 0RF Rx Instructions: Take 6 tabs on days 1-2, 5 tabs on days 3-4, 4 tabs on days 5-6, 3 tabs on day 7-8, 2 tabs on days 9-10, and 1 tab on day 11 No Action albuterol sulfate [ProAir HFA] 90 mcg/actuation HFA aerosol inhaler 2 puff INHALATION Q6H PRN (Reason: shortness of breath or wheezing) Qty: 8.5 0RF levothyroxine [Synthroid] 112 mcg tablet 112 mcg PO DAILY estradiol 0.5 mg tablet 0.5 mg PO DAILY baclofen 10 mg tablet 10 mg PO TID trazodone 150 mg tablet 100 mg PO .AT BEDTIME triamcinolone acetonide [Nasacort Allergy] 55 mcg aerosol,spray 2 spray intranasal DAILY 360 Days Qty: 16.9 12RF Rx Instructions: administer into each nostril Nasal Decongestant (pseudoeph) 30 mg capsule (abuse-resistant) 30 mg PO Q6H Zyrtec 10 mg capsule 10 mg PO DAILY PRN (Reason: Allergic Symptoms) promethazine 25 mg suppository 25 mg NH Q6H PRN (Reason: nausea and vomiting) Qty: 12 2RF Discharge Orders: Discharge ED (Routine); Ordered 10/01/23 Ordered By: Raheel Paredes Referrals: Preston Freitas MD [Primary Care Provider] - Discharge Diet: Usual diet Discharge Activity: Increase activity as tolerated Patient Instructions: Microscopic Colitis (ED) Activity Restrictions/Additional Instructions: Take prednisone taper as instructed. Plenty of fluids. Please follow-up with your primary care provider later this week. Return if you develop any worsening diarrhea, notice any blood in your stool, or running high fevers, or any other concerning signs or symptoms you may have. Sign Out Sign Out Data: Patient Sign Out occurred on 10/01/23 at 17:00. Patient's care was discussed, and care was transferred from EDUARDO Osborn to EDUARDO Perry. Coding Level of Care Code ED Director Of Graduate Admissions for Chg Fwd Documented by User: EDUARDO Perry 10/01/23 18:37 HPI - Nausea/Vomiting/Diarrhea 2 General: Chief complaint: Nausea/Vomiting/Diarrhea Stated complaint: diarrhea, dehydration Time Seen by Provider: 10/01/23 16:09 PFSH ED 2 PFSH: Medical History Chronic cystitis with hematuria Major depressive disorder PTSD (post-traumatic stress disorder) Insomnia Osteoarthritis Muscle cramps Cindi's thyroiditis Nasal polyps Inflammatory bowel disease Chronic diarrhea History of renal stone Surgical History History of sinus surgery History of salpingo-oophorectomy H/O: hysterectomy H/O tubal ligation History of appendectomy History of bilateral breast reduction surgery H/O section Family History Other CAD (coronary artery disease) Cancer Diabetes Multiple sclerosis Social History Smoking and tobacco/nicotine status: current every day tobacco/nicotine user cigarettes Packs smoked per day: 0.1 Alcohol intake: current Alcohol intake frequency: holidays/special occasions only Substance/Drug Use: never Physical Exam 2 Neuro: PURVI COMA SCALE: document GCS findings Mesa coma scale total score: 15 Course 2 Vital Signs: Vital signs: Vital Signs Temperature 98.1 F 10/01/23 14:29 Pulse Rate 70 10/01/23 17:24 Respiratory Rate 16 10/01/23 14:29 Blood Pressure 125/82 10/01/23 17:30 Pulse Oximetry 99 10/01/23 17:30 Oxygen Delivery Me thod Room Air 10/01/23 17:30 MDM - Nausea/Vomiting/Diarrhea Medical Decision Making This patient was handed over to me at shift change. She was seen and evaluated today due to increased diarrhea that she attributes to her history of microscopic colitis. She reported to me that she has had repetitive bouts of this in the past and nothing seems to work for her except for a course of steroids. She was reporting some cramping, weakness, and dizziness associated with her current increase in diarrhea. I reexamined her following shift change, and she stated to me that she was feeling better. She notes that prior to increase in diarrhea she was having some upper respiratory symptoms, and she thinks that might of preceded her colitis flare. She also notes that she has been moving into a new house, and the increased stress also historically affects her colitis flares. Her vitals on arrival and recheck are both normal. Orthostatic vitals were also assessed, which resulted negative for any significant drops in blood pressure. Laboratory results positive for mild increase in white blood cell count, but were overall unremarkable. Her C. difficile PCR was negative. UA unremarkable. Patient is able to ambulate without any dizziness or weakness to give her urine, and she stated that she felt better after receiving half of her liter of fluids. I believe that patient's dizziness and abdominal cramping related to mild dehydration. I do not see reason at this time for any further evaluation such as any imaging or further laboratory tests, and patient can be treated with a prednisone taper that she reports works for her when these symptoms occur. I informed the patient to return for reevaluation if she starts running high fevers, notices any blood in her stool, or has any other concerning or new symptoms. Otherwise, patient agrees with the plan to discharge home, and she will be given a p.o. dose of 20 mg prednisone prior to discharge. All other questions and concerns addressed at this time. Medical Records I reviewed the patient's medical records. Lab Data I reviewed the patient's lab results. 10/01/23 14:42 10/01/23 14:42 Laboratory Results WBC 15.55 10^3/uL (3.29-11.43) H 10/01/23 14:42 RBC 4.88 10^6/uL (3.85-5.65) 10/01/23 14:42 Hgb 15.60 g/dL (11.27-16.99) 10/01/23 14:42 Hct 45.0 % (36-47) 10/01/23 14:42 MCV 92.2 fl (85-98) 10/01/23 14:42 MCH 32.0 pg (27-33) 10/01/23 14:42 MCHC 34.7 g/dL (30-55) 10/01/23 14:42 RDW 12.4 % (12.1-15.1) 10/01/23 14:42 Plt Count 320 10^3/cmm (157-399) 10/01/23 14:42 MPV 11.2 fL (7.4-10.4) H 10/01/23 14:42 Neut % (Auto) 69.8 % 10/01/23 14:42 Lymph % (Auto) 17.2 % 10/01/23 14:42 Hardee % (Auto) 5.2 % 10/01/23 14:42 Eos % (Auto) 6.6 % 10/01/23 14:42 Baso % (Auto) 0.9 % 10/01/23 14:42 Neut # (Auto) 10.85 10^3/uL (1.8-7.7) H 10/01/23 14:42 Lymph # (Auto) 2.7 10^3/uL (0.8-4.8) 10/01/23 14:42 Hardee # (Auto) 0.8 10^3/uL (0.2-0.9) 10/01/23 14:42 Eos # (Auto) 1.0 10^3/uL (0.0-0.8) H 10/01/23 14:42 Baso # (Auto) 0.1 10^3/uL (0.0-0.1) 10/01/23 14:42 Nucleated RBC % (auto) 0 % 10/01/23 14:42 Nucleated RBCs # 0.0 /100WBC 10/01/23 14:42 Sodium 137 mmol/L (136-145) 10/01/23 14:42 Potassium 3.8 mmol/L (3.5-5.1) 10/01/23 14:42 Chloride 100 mmol/L (98-107) 10/01/23 14:42 Carbon Dioxide 23 mmol/L (22-29) 10/01/23 14:42 Anion Gap 17.8 (5-19) 10/01/23 14:42 BUN 9 mg/dL (6-20) 10/01/23 14:42 Creatinine 0.8 mg/dL (0.5-0.9) 10/01/23 14:42 GFR Calculation 73.4 mL/min (90-130) L 10/01/23 14:42 Glucose 116 mg/dL (65-115) H 10/01/23 14:42 Calculated Osmolality 284 mOsm/kg (285-295) L 10/01/23 14:42 Lactic Acid 1.0 mmol/L (0.5-2.2) 10/01/23 14:42 Calcium 9.1 mg/dL (8.5-10.5) 10/01/23 14:42 Magnesium 1.9 mg/dL (1.7-2.3) 10/01/23 14:42 Total Bilirubin 0.4 mg/dL (0.15-1.2) 10/01/23 14:42 AST 11 U/L (0-32) 10/01/23 14:42 ALT 9 U/L (0-33) 10/01/23 14:42 Alkaline Phosphatase 118 U/L (35-105) H 10/01/23 14:42 Total Protein 7.5 g/dL (6.6-8.7) 10/01/23 14:42 Albumin 4.3 g/dL (3.5-5.2) 10/01/23 14:42 Globulin 3.2 g/dL (1.3-4.6) 10/01/23 14:42 Urine Color Yellow (Yellow) 10/01/23 14:04 Urine Appearance Hazy (CLEAR) A 10/01/23 14:04 Urine pH 6 (5-7) 10/01/23 14:04 Ur Specific [place] 1.020 (1.005-1.030) 10/01/23 14:04 Urine Protein Neg (Negative) 10/01/23 14:04 Urine Glucose (UA) Norm (Normal) 10/01/23 14:04 Urine Ketones Negative (Negative) 10/01/23 14:04 Urine Blood 3+ (Negative) H 10/01/23 14:04 Urine Nitrate Negative (Negative) 10/01/23 14:04 Urine Bilirubin Neg (Negative) 10/01/23 14:04 Urine Urobilinogen Norm mg/dL (Negative) 10/01/23 14:04 Ur Leukocyte Esterase Negative (Negative) 10/01/23 14:04 Urine RBC 5-10 /hpf (0-2) H 10/01/23 14:04 Urine WBC 0-4 /hpf (0-5) H 10/01/23 14:04 Ur Squamous Epith Cells 5-10 /hpf (0-5) H 10/01/23 14:04 Ur Transition Epith Cell 0-4 /hpf 10/01/23 14:04 Amorphous Sediment Not Reportable 10/01/23 14:04 Urine Bacteria Trace /hpf (NONE) 10/01/23 14:04 Urine Mucus Trace /hpf 10/01/23 14:04 C. difficile (PCR) Negative (Negative) 10/01/23 17:03 No radiology studies performed this visit Discharge Plan Discharge Patient Disposition: Home Clinical Impression: Microscopic colitis Qualifiers: Microscopic colitis type: unspecified Qualified Code(s): K52.839 - Microscopic colitis, unspecified Condition: Stable Prescriptions: New prednisone 10 mg tablet 10 mg PO DAILY 10 Days Qty: 41 0RF Rx Instructions: Take 6 tabs on days 1-2, 5 tabs on days 3-4, 4 tabs on days 5-6, 3 tabs on day 7-8, 2 tabs on days 9-10, and 1 tab on day 11 No Action albuterol sulfate [ProAir HFA] 90 mcg/actuation HFA aerosol inhaler 2 puff INHALATION Q6H PRN (Reason: shortness of breath or wheezing) Qty: 8.5 0RF levothyroxine [Synthroid] 112 mcg tablet 112 mcg PO DAILY estradiol 0.5 mg tablet 0.5 mg PO DAILY baclofen 10 mg tablet 10 mg PO TID trazodone 150 mg tablet 100 mg PO .AT BEDTIME triamcinolone acetonide [Nasacort Allergy] 55 mcg aerosol,spray 2 spray intranasal DAILY 360 Days Qty: 16.9 12RF Rx Instructions: administer into each nostril Nasal Decongestant (pseudoeph) 30 mg capsule (abuse-resistant) 30 mg PO Q6H Zyrtec 10 mg capsule 10 mg PO DAILY PRN (Reason: Allergic Symptoms) promethazine 25 mg suppository 25 mg NH Q6H PRN (Reason: nausea and vomiting) Qty: 12 2RF Discharge Orders: Discharge ED (Routine); Ordered 10/01/23 Ordered By: Raheel Paredes Referrals: Preston Freitas MD [Primary Care Provider] - Discharge Diet: Usual diet Discharge Activity: Increase activity as tolerated Patient Instructions: Microscopic Colitis (ED) Activity Restrictions/Additional Instructions: Take prednisone taper as instructed. Plenty of fluids. Please follow-up with your primary care provider later this week. Return if you develop any worsening diarrhea, notice any blood in your stool, or running high fevers, or any other concerning signs or symptoms you may have. Sign Out Sign Out Data: Patient Sign Out occurred on 10/01/23 at 17:00. Patient's care was discussed, and care was transferred from EDUARDO Osborn to EDUARDO Perry. Coding Level of Care Code ED Director Of Graduate Admissions for Luis Weaver
[2023-10-01 17:07] LABS: Add Urine Microscopic? YES; Bilirubin Urine Neg (Negative); Blood Urine 3+ (Negative); Glucose Urine UA Norm (Normal); Ketones Urine Negative (Negative); Leukocyte Esterase Urine Negative (Negative); Nitrate Urine Negative (Negative); Protein Urine Neg (Negative); Urine Appearance Hazy (CLEAR); Urine Color Yellow (Yellow); Urobilinogen Urine Norm (Negative); pH Urine 6 (5-7)
[2023-10-01 17:10] LABS: Add Urine Culture? No; Bacteria Urine TRACE /hpf; Mucus Urine TRACE /hpf; Transitional Epi Cells Urine 0-4 /hpf; WBC Urine 0-4 /hpf (0-5)
[2023-10-01 17:23] VITALS: BP 113/74; BP 125/82; BP 131/82; PULSE 64; PULSE 67; PULSE 70
[2023-10-01 17:24] VITALS: BP 113/74; PULSE 70; O2SAT 99
[2023-10-01 17:30] VITALS: BP 125/82; O2SAT 99
[2023-10-01 17:32] LABS: Magnesium 1.9 mg/dL (1.7-2.3)
[2023-10-01 18:03] LABS: C.Diff PCR (Lab) NEGATIVE (Negative)
[2023-10-01] MEDS: predniSONE 20 mg Tablet PO (18:40)
== END 2023-10-01 18:44 | disposition home or self-care (01) ==
PROVIDERS: Emergency Medicine; Physician Assistant; Emergency Provider Physician Assistant; PCP Family Medicine
DX: K52.839 Microscopic colitis, unspecified (principal); F17.210 Nicotine dependence, cigarettes, uncomplicated
CPT/HCPCS: 36415; 80053; 81001; 82274; 83605; 83630; 83735; 85025; 87045; 87177; 87209; 87427; 87449; 87493; 96360; 96361; 99284; J7030; J7512

== ENCOUNTER 2023-10-30 06:00 | Outpatient (RCR) | payer MEDICARE, SELFPAY | END 2023-11-26 23:59 | disposition home or self-care (01) | LOC: TPT 06:00 | PROVIDERS: PCP Family Medicine; Visit Provider Family Medicine | DX: M54.6 Pain in thoracic spine (principal) | CPT/HCPCS: 97110; 97140; 97162 ==

== ENCOUNTER 2024-03-16 06:00 | Outpatient (CLI) | payer MEDICARE, SELFPAY | END 2024-03-16 06:01 | disposition home or self-care (01) | LOC: RAD 04-06 09:47 | PROVIDERS: PCP Family Medicine; Visit Provider Psychiatry & Neurology Neurology | DX: J32.9 Chronic sinusitis, unspecified (principal); R51.9 Headache, unspecified; R25.2 Cramp and spasm; H54.7 Unspecified visual loss; M50.30 Other cervical disc degeneration, unspecified cervical region | CPT/HCPCS: 36415; 84155; 84165; 86334; 86592; 86780 ==

== ENCOUNTER → 2024-03-16 10:01 | Outpatient (BNVA) | payer MEDICARE, SELFPAY | PROVIDERS: PCP Family Medicine; Referring Provider Family Medicine; Visit Provider Psychiatry & Neurology Neurology | DX: M62.838 Other muscle spasm (principal); M54.6 Pain in thoracic spine; M50.30 Other cervical disc degeneration, unspecified cervical region; Z86.19 Personal history of other infectious and parasitic diseases; H57.9 Unspecified disorder of eye and adnexa; R51.9 Headache, unspecified; M62.81 Muscle weakness (generalized); R53.83 Other fatigue; R20.2 Paresthesia of skin; M79.601 Pain in right arm; M79.602 Pain in left arm; M62.830 Muscle spasm of back | CPT/HCPCS: 99203 ==

== ENCOUNTER → 2024-04-16 09:34 | Outpatient (BNVA) | payer MEDICARE, SELFPAY | PROVIDERS: PCP Family Medicine; Referring Provider Nurse Practitioner Family; Visit Provider Student in an Organized Health Care Education/Training Program | DX: Z12.11 Encounter for screening for malignant neoplasm of colon (principal); R03.0 Elevated blood-pressure reading, without diagnosis of hypertension | CPT/HCPCS: 99204; 99214 ==

== ENCOUNTER 2024-04-27 13:29 | Outpatient (CLI) | payer MEDICARE, SELFPAY ==
--- NOTE | 2024-04-27 13:45 | MR_ITS ---
WS: [id number] MRI THORACIC SPINE WITH CONTRAST TECHNIQUE: Sagittal T1, T2 and STIR imaging. Axial T2 imaging. Post gadolinium imaging was obtained. CLINICAL INFORMATION: M54.6 - Pain in thoracic spine COMPARISON: 2021 FINDINGS: Mild thoracic curve. Mild thoracic kyphosis. A few tiny shallow disc protrusions in the mid thoraci c spine. No significant central canal stenosis. Moderate facet arthropathy lower thoracic spine. No h igh-grade central canal or foraminal stenosis. Adrenal glands are normal. Normal caliber thoracic aorta. No definite demyelinating lesions in the th oracic cord. Some images degraded by motion artifact. Mild central canal stenosis in the cervical spi ne on the energy technician imaging at C5-C6 and C6-C7 with disc osteophyte protrusions. This can be further eval uated with cervical spine MRI. Shallow central protrusions more prominent at T6-T8 with slight contact of the thoracic cord. No sign ificant central canal stenosis. Small esophageal hiatal hernia. MR/MR thoracic spine wo/w [id number] IMPRESSION: Overall no significant changes since 2021. 1. No visualized demyelinating lesions within the thoracic cord considering mo tion artifact. No enhancing lesions or cord atrophy. 2. A few shallow central disc protrusions at T6-T8 with slight contact of the thoracic cord. No significant central canal stenosis. 3. Mild central canal stenosis in the cervical spine on the energy technician imaging at C 5-C6 and C6-C7 with slight contact of the cervical cord. This could be further evaluated with cervical spine MRI. 4. Small esophageal hiatal hernia.
--- NOTE | 2024-04-27 14:30 | MR_ITS ---
WS: [id number] MRI HEAD WITH CONTRAST TECHNIQUE: Sagittal T1, T2 axial, T2 axial FLAIR, axial susceptibility weighted imaging, axial diffus ion weighted images, and coronal T2 images were obtained. Pre and post-T1 axial and post T1 coronal i mages. ADC and FSPGR images. Additional images of the orbits. CLINICAL INFORMATION: R51.9 - Headache, unspecified COMPARISON: CT head 2020 FINDINGS: No evidence of restricted diffusion to suggest acute ischemia. Ventricular system and basilar cistern s are patent. Mild patchy supratentorial white matter changes are nonspecific in a patient this age. White matter changes mainly in the frontal white matter and at the vertex. Moderate parenchymal volum e loss. Normal posterior fossa. Normal corpus callosum. Normal vascular flow voids at the skull base. Pansinusitis with mucosal thickening throughout the par anasal sinuses. Near complete opacification of the ethmoid air cells and frontoethmoidal recesses. No hemosiderin on the susceptibly weighted images. Normal optic chiasm and pituitary infundibulum. Te mporal lobes and hippocampal formations are normal in appearance. Proximal 7th and 8th cranial nerves appear normal. Diffuse enhancement of the optic nerves and optic nerve sheaths compatible with optic neuritis. Recom mend correlation with clinical symptoms. Normal visualized rectus muscles. Normal visualized dural ve nous sinuses. No abnormal enhancing intracranial lesions. MR/MR head wo/w con [id number] IMPRESSION: 1. No evidence of restricted diffusion to suggest acute ischemia. 2. Diffuse enhancement of the optic nerves and nerve sheaths bilaterally cristal tible with optic neuritis. Recommend correlation with clinical symptoms. Normal optic chiasm. 3. Mild patchy supratentorial white matter changes nonspecific in a patient th is age but can be seen with small vessel disease, migraine headaches, and possi elisa demyelinating disease considering findings of optic neuritis. 4. Normal corpus callosum. 5. Moderate parenchymal volume loss. 6. Diffuse pansinusitis with complete opacification of the ethmoid air cells a nd frontoethmoidal recesses bilaterally. 7. Suggestion of possible tiny lesion in the cervical cord partially visualize d on the sagittal FLAIR imaging. Recommend cervical spine MRI in further evalua tion.
[2024-04-27] MEDS: gadobenate dimeglumine 20 mL vial IV (14:55)
== END 2024-04-27 13:30 | disposition home or self-care (01) ==
LOC: RAD 13:29
PROVIDERS: PCP Family Medicine; Visit Provider Psychiatry & Neurology Neurology
DX: G31.89 Other specified degenerative diseases of nervous system (principal); J01.40 Acute pansinusitis, unspecified; M46.94 Unspecified inflammatory spondylopathy, thoracic region; M25.78 Osteophyte, vertebrae; K44.9 Diaphragmatic hernia without obstruction or gangrene; R25.2 Cramp and spasm; R51.9 Headache, unspecified; H54.7 Unspecified visual loss; R53.83 Other fatigue
CPT/HCPCS: 70553; 72157

== ENCOUNTER → 2024-05-12 12:00 | Outpatient (BNVA) | payer MEDICARE, SELFPAY | PROVIDERS: PCP Family Medicine; Visit Provider Psychiatry & Neurology Neurology | DX: M62.830 Muscle spasm of back (principal); R20.2 Paresthesia of skin; M79.601 Pain in right arm; M79.602 Pain in left arm; M62.81 Muscle weakness (generalized) | CPT/HCPCS: 95885; 95913 ==

== ENCOUNTER 2024-05-13 14:18 | Outpatient (CLI) | payer MEDICARE, SELFPAY ==
[2024-05-13 15:21] LABS: Creatine Phosphokinase 214 U/L (26-192)
[2024-05-13 16:00] LABS: HIV 1 & 2 Antibody Non-Reactive (Non-Reactiv); HIV 1 & 2 Antigen Non-Reactive (Non-Reactiv)
== END 2024-05-13 14:19 | disposition home or self-care (01) ==
LOC: LAB 14:20
PROVIDERS: PCP Family Medicine; Visit Provider Psychiatry & Neurology Neurology
DX: R25.2 Cramp and spasm (principal); J32.9 Chronic sinusitis, unspecified; R51.9 Headache, unspecified; K52.839 Microscopic colitis, unspecified; E06.3 Autoimmune thyroiditis; R53.83 Other fatigue; K52.9 Noninfective gastroenteritis and colitis, unspecified; H54.7 Unspecified visual loss; M54.6 Pain in thoracic spine; N64.4 Mastodynia; N63.20 Unspecified lump in the left breast, unspecified quadrant; R20.2 Paresthesia of skin; M79.601 Pain in right arm; M79.602 Pain in left arm; G35 Multiple sclerosis; R93.89 Abnormal findings on diagnostic imaging of other specified body structures
CPT/HCPCS: 36415; 82550; 86334; 87806

== ENCOUNTER 2024-05-14 07:59 | Outpatient (CLI) | payer MEDICARE, SELFPAY ==
--- NOTE | 2024-05-14 08:30 | FL_ITS ---
WS: [id number] LUMBAR PUNCTURE CLINICAL INFORMATION: R93.0 - Abnormal findings on diagnostic imaging of skull ... COMPARISON: None. TECHNIQUE: Informed consent: The procedure and its potential risk and complications were discussed with the mahendra ent. Verbal and written consent was obtained. Timeout: A timeout was performed to confirm correct patient, procedure, and site. Patient was prepped and draped in the usual sterile fashion. Lidocaine 1% was used for local anesthes ia. Utilizing fluoroscopic guidance, a 3.5 inch 22-gauge spinal needle was advanced into the subarach noid space at L3-L4 via LEFT oblique sublaminar approach. Free flow of clear CSF was obtained. 13 cc of CSF was collected and sent the lab for further analysis. FLUOROSCOPIC TIME: 1min [id number] # of spot films: 1 FL/FL guided lumbarpunc dx* [id number] IMPRESSION: 1. Fluoroscopically guided lumbar puncture. No immediate complications 2. Opening pressure 15 cmH2O 3. Closing pressure 11 cmH2O
[2024-05-14 09:55] LABS: Mononuclear WBC CSF % 67 % (50-90); Polynuclear WBC CSF % 33 % (0-10); Red Blood Cell CSF 0 10^3/uL (0-0); White Blood Cell CSF 3 /uL (0-5)
[2024-05-14 10:07] LABS: Appearance CSF CLEAR (CLEAR); Color CSF COLORLESS (COLORLESS); PATH Referral YES
[2024-05-14 10:34] LABS: Glucose CSF 59 mg/dL (40-70); Total Protein CSF 61 mg/dL (15-45)
[2024-05-17 00:59] LABS: CMV DNA By PCR Not Detected (Not Detected); CMV DNA, QN PCR Not Detected Log IU/mL (Not Detected); SOURCE Results Below
[2024-05-17 01:10] LABS: Epstein Barr Virus DNA PCR Not Detected Log cps/mL (Not Detected); Epstein Barr Virus DNA QN PCR Not Detected copies/mL (Not Detected); Epstein Barr Virus Source Results Below
[2024-05-19 02:05] LABS: JC Virus DNA Ultra QN PCR NOT DETECTED Log IU/mL; JC Virus Quant CSF PCR NOT DETECTED
== END 2024-05-14 08:00 | disposition home or self-care (01) ==
PROVIDERS: PCP Family Medicine; Visit Provider Psychiatry & Neurology Neurology
DX: R93.0 Abnormal findings on diagnostic imaging of skull and head, not elsewhere classified (principal); R93.89 Abnormal findings on diagnostic imaging of other specified body structures; G35 Multiple sclerosis
CPT/HCPCS: 62328; 80503; 82040; 82042; 82164; 82784; 82945; 83916; 84157; 86382; 86403; 86592; 87015; 87070; 87075; 87116; 87205; 87206; 87327; 87496; 87798; 87799; 87801; 89050

== ENCOUNTER 2024-05-20 12:32 | Outpatient (CLI) | payer MEDICARE, SELFPAY ==
[2024-05-21 09:44] LABS: Toxoplasma AB IGG <7.20 IU/mL; Toxoplasma AB IGM <8.00 AU/mL
[2024-05-21 12:31] LABS: Cytomegalovirus IgG Antibody <0.60 U/mL
[2024-05-21 13:35] LABS: HSV 2 IGG Type Specific AB <0.90 index
== END 2024-05-20 12:33 | disposition home or self-care (01) ==
LOC: LAB 12:33
PROVIDERS: PCP Family Medicine; Visit Provider Psychiatry & Neurology Neurology
DX: R93.89 Abnormal findings on diagnostic imaging of other specified body structures (principal); G25.82 Stiff-man syndrome; G35 Multiple sclerosis
CPT/HCPCS: 36415; 86337; 86341; 86644; 86695; 86696; 86777

== ENCOUNTER → 2024-05-21 14:04 | Outpatient (BNVA) | payer MEDICARE, SELFPAY | PROVIDERS: PCP Family Medicine; Visit Provider Orthopaedic Surgery | DX: M54.6 Pain in thoracic spine (principal) | CPT/HCPCS: 72072; 99213 ==

== ENCOUNTER → 2024-06-16 11:00 | Outpatient (BNVA) | payer MEDICARE, SELFPAY | PROVIDERS: PCP Family Medicine; Visit Provider Student in an Organized Health Care Education/Training Program | DX: R89.4 Abnormal immunological findings in specimens from other organs, systems and tissues (principal); Z86.19 Personal history of other infectious and parasitic diseases | CPT/HCPCS: 99205 ==

== ENCOUNTER 2024-07-07 11:51 | Outpatient (CLI) | payer MEDICARE, SELFPAY ==
--- NOTE | 2024-07-07 13:06 | XR_ITS ---
WS: [id number] Exam: XR chest 2V* [id number] Date/Time of Exam: 07/07/2024 1:09 PM Reason For Exam: BRONCHITIS Comparison 07/24/2020. Lungs are fully expanded and clear. Normal cardiomediastinal silhouette. No pleural effusions. Normal bony structures. XR/XR chest 2V* [id number] IMPRESSION: 1. No acute cardiopulmonary finding.
== END 2024-07-07 11:52 | disposition home or self-care (01) ==
PROVIDERS: PCP Family Medicine; Visit Provider Nurse Practitioner Family
DX: J40 Bronchitis, not specified as acute or chronic (principal)
CPT/HCPCS: 71046

== ENCOUNTER 2024-07-13 13:14 | Emergency (ER) | payer MEDICARE, SELFPAY ==
[2024-07-13 13:22] VITALS: BP 135/78; PULSE 83; RESP 18; TEMP 36.7; O2SAT 97
[2024-07-13 14:27] LABS: Basophils # 0.1 10^3/uL (0.0-0.1); Basophils % 1.2 %; Eosinophils # 0.6 10^3/uL (0.0-0.8); Eosinophils % 5.5 %; Hematocrit 39.7 % (36-47); Lymphocytes % 17.4 %; Mean Corpuscular HGB Conc 33.8 g/dL (30-55); Mean Corpuscular Hemoglobin 31.8 pg (27-33); Mean Corpuscular Volume 94.1 fl (85-98); Monocytes # 0.9 10^3/uL (0.2-0.9); Monocytes % 7.8 %; Neutrophils # 7.65 10^3/uL (1.8-7.7); Neutrophils % 67.4 %; Nucleated Red Blood Cells % 0 %; Platelet Count 262 10^3/cmm (157-399); Red Blood Count 4.22 10^6/uL (3.85-5.65); Red Cell Distribution Width 11.9 % (12.1-15.1); White Blood Count 11.34 10^3/uL (3.29-11.43)
[2024-07-13 14:55] LABS: Alanine Aminotransferase 13 U/L (0-33); Alkaline Phosphatase 85 U/L (35-105); Anion Gap 12.8 (5-19); Aspartate Amino Transferase 20 U/L (0-32); Blood Urea Nitrogen 11 mg/dL (8-23); Calcium 9.7 mg/dL (8.5-10.5); Carbon Dioxide 26 mmol/L (22-29); Chloride 103 mmol/L (98-107); Creatinine Clr Calc Pharmacy 74.0884; Globulin 2.6 g/dL (1.3-4.6); Glomerular Filtration Rate 73.2 mL/min (90-130); Glucose 69 mg/dL (65-115); Osmolality Calculated 284 mOsm/kg (285-295); Potassium 3.8 mmol/L (3.5-5.1); Sodium 138 mmol/L (136-145); Total Bilirubin 0.5 mg/dL (0.15-1.2); Total Protein 6.6 g/dL (6.6-8.7)
--- NOTE | 2024-07-14 16:35 | PC.NURSE ---
Called pt after she LWBS yesterday. Pt states she knew there were so many critical patients in the ER she left. She states she called her dr and they increased her Baclofin and she is feeling better. She did asked about her lab results. Dr. Coronel stated they were relatively normal.
== END 2024-07-13 18:43 | disposition left against medical advice (07) ==
PROVIDERS: Emergency Medicine; Emergency Provider Family Medicine; PCP Family Medicine
DX: Z53.21 Procedure and treatment not carried out due to patient leaving prior to being seen by health care provider (principal)
CPT/HCPCS: 36415; 80053; 85025

== ENCOUNTER 2024-12-07 13:57 | Outpatient (CLI) | payer MEDICARE, SELFPAY ==
--- NOTE | 2024-12-07 14:08 | MM_ITS ---
WS: [id number] BILATERAL 3D TOMOSYNTHESIS DIGITAL DIAGNOSTIC MAMMOGRAPHY WITH CAD CLINICAL INFORMATION: LT BREAST KNOT AND PAIN HISTORY: LEFT breast lump and pain COMPARISON: 2021 TECHNIQUE: Bilateral CC, MLO, and ML views. FINDINGS: Scattered fibroglandular densities bilaterally. Stable biopsy clips LEFT breast with stable asymmetric densities in the areas of prior biopsy. Palpable marker overlies the area of previous biopsy near the 7 o'clock position. Ultrasound of this area is pending. Stable benign calcifications LEFT breast. ULTRASOUND BREAST LEFT TECHNIQUE: Ultrasound left breast focused area of concern. CLINICAL INFORMATION: LT BREAST KNOT AND PAIN COMPARISON: 2021 FINDINGS: No suspicious abnormalities deep to the area of palpable concern at the 7 o'clock position 5 cm from the nipple. The adjacent 7:00 previously biopsied nodule 2 cm from the nipple is stable in appearance with associated biopsy clip. No other suspicious abnormalities. MM/MM diag BI tomosynthesis [id number] IMPRESSION: DENSITY: There are scattered areas of fibroglandular density. BI-RADS: 2 - Benign. FOLLOW UP: 1 Year Follow-up Recommend return to annual screening mammography.
== END 2024-12-07 13:58 | disposition home or self-care (01) ==
PROVIDERS: PCP Family Medicine; Visit Provider Family Medicine
DX: N60.19 Diffuse cystic mastopathy of unspecified breast (principal); Z12.31 Encounter for screening mammogram for malignant neoplasm of breast; R92.323 Mammographic fibroglandular density, bilateral breasts; R92.1 Mammographic calcification found on diagnostic imaging of breast
CPT/HCPCS: 76642; 77062; G0279

== ENCOUNTER 2025-05-13 23:35 | Emergency (ER) | payer MEDICARE, SELFPAY ==
--- OUTSIDE RECORDS SUMMARY | 2017-10-24 19:00 | XMS_ITS | Continuity of Care Document ---
Author Organization [facility] Address [address] [place] [address] Phone Care Team Providers Care Aerodynamic Consultant Name Role Phone Naye Dwyer Unavailable Unavailable Advance Directives Directive Yes / No Effective Date File Name No Information Encounters Encounter Description Practice Location Reason(s) For Visit Diagnoses Date Provider Providers Copied on Encounter [facility], [address] [facility], [place], [place], [id number], [place] tel:[phone] [address] [place] [address] No Information Sep-3 0-201 8 Mono Yancey. [address] [facility], [address], [place], [place], [id number], [place]. tel:[phone] Family History Family Member Type Diagnosis Age At Onset No Information Payers Payer name Insurance type Covered libertarian ID Authoriza tion(s) No Information Social History Type Description Quantity Date Captured Comments Sex Female Smoking Status No Information Chief Complaint And Reason For Visit No Information Reason For Referral Reason For Referral No Information History Of Present Illness Encounter Date Complaint History Of Prese nt Illness No Information Functional Status Date Functional Assessmen t No Information Instructions Date Instruction Additional Infor mation No Information Assessments Type Assessment Date No Information Patient Care Teams Name Effective Dates (start - stop) Status Members No Information
--- OUTSIDE RECORDS SUMMARY | 2025-05-13 23:43 | XMS_ITS | Encounter Summary ---
Author Organization [facility] Address [address] [place] [address] Care Team Providers Care Lead Software Developer Name Role Phone Sabas Barr MD Primary Care Provider [phone] Encounter Details Date Type Department Care Team ([facility] st Contact Info) Description 09/24/2019 Outside Records [facility] [address] [facility] [place] [address] Interface, Provider Social History Tobacco Use Types Packs/Day Years Used Date Smoking Tobacco: Every Day Cigarettes 1 30 Smokeless Tobacco: Never Alcohol Use Standard Drinks/Week Comments Yes 1 (1 standard drink = 0.6 oz pur e alcohol) AUDIT-C Answer Date Recorded Frequency of Alcohol Consumption Not on file 11/03/2018 Average Number of Drinks Not on file 019 Frequency of Binge Drinking Never 02/2019 Comments No Sex and Gender Information Value Date Recorded Sex Assigned at Not on file Legal Sex Female 9:18 PM CDT Gender Identity Not on file Sexual Orientation Not on file documented as of this encounter Plan of Treatment Not on file documented as of this encounter Visit Diagnoses Not on filedocumented in this encounter Additional Health Concerns Assessment Noted Time PHQ-9 Depression Total Score: 0 02/28/20 16 12:35 PM CDT documented as of this encounter Care Teams Lead Software Developer Relationship Specialty Start Date End Date Sabas Barr MD [address] [place] [phone] PCP - General Family Medicine 04/22/18 documented as of this encounter
--- OUTSIDE RECORDS SUMMARY | 2025-05-13 23:43 | XMS_ITS | Data Portability ---
Author Organization [facility], [facility] Address [address] [place] [address] Care Team Providers Care Thermal Technician Name Role Phone MAGY BARR Primary Care Provider Assessment Encounter Date Assessment Date Assessment LastModified by Organization Details LastModified Time 10/21/2018 10/21/2018 Assessment: 1. Microhematuria 2. History of kidney stones. 3. Bladder pain Plan: 1. Explained to the patient that 95% of people who show blood in their urine have a benign condition or are having a temporary episode. Explained that before about 15 years ago, anybody with microscopic hematuria underwent a full workup, but then research showed that people were being worked up excessively. Explained that now, there have to be to be 3 consecutive UAs over a period of a month with 3-5 RBCs each to indicate a urine cytology and/or CT scan. The patient was told they need to be worked up if they meet these requirements or if they ever experience gross hematuria not associated with a UTI or stone. We will discuss a cystoscopy/cytolo gy if the CT scan shows something suspicious. 2. Explained that we will schedule the pt for a Stone Protocol CT scan (depending on insurance approval). If this isn't cleared by insurance, we will perform a BRYAN to check for swelling. We'll discuss a cystoscopy afterwards if necessary. 3. We will schedule the pt for a Stone Protocol CT scan, and a BRYAN and KUB if that not possible. 4. The pt returns with a CT scan. 5. Reviewed the pt's CT scan with her in detail. 6. Explained that we can now perform a cytology or a cystoscopy to ascertain where her blood is from since her scan was clear. 7. Performed a cystoscopy today. 8. Sent the pt's urine for cytology to check the pt's ureters. 9. Let the pt know some names of GI doctors to be referred to - Lowell Barron, Stanford Anderson, and Isaak Angulo. 10. Letter dictated to the pt's PCP, Dr. Sabas Barr. 11. We will contact the pt with the results of her cytology. Explained that if this is normal, the pt can tell anyone that she always shows blood in the urine. Explained that the one caveat is if she sees gross hematuria. 12. Letter dictated to the pt on her CT results. Data Reviewed: 1. UA: large blood 2. CT scan (10/21/18): FINDINGS: CT Abdomen: The study was performed without IV contrast per ordering physician's request. The lack of IV contrast significantly limits our evaluation of the solid visceral organs and bowel wall.No obvious mass is identified. No renal calculus or hydronephrosis is seen. No abnormal fluid collection or obvious mass is seen on this noncontrasted study. No dilated bowel is seen. No adenopathy is seen. CT Pelvis: No ureteral calculus or hydroureter is seen. No mass or abnormal fluid collection is identified. No dilated bowel is seen. The bladder is unremarkable in appearance. Impression: Negative CT abdomen and pelvis without IV contrast Visit Level: 5 [facility] Not available 10/30/2018 13:45:09 Plan of Treatment Reminders Order Date Submit Date Provider Last Modified By Organization Details Last Modified Time Details Appointments None recorded. Lab cytology, urine 2018 019 [facility], [address] [facility] [address], [place], [address], 9 22:49:50 urinalysis , dipstick, auto 2018 019 deandre camacho Not available 9 10:48:02 Referral None recorded. Procedures None recorded. Surgeries None recorded. Imaging CT, abdomen + pelvis, w/o contrast 2018 019 deandre camacho [facility] (Mri, Bone Scan, Ct, Etc.), [address] [facility] , [place], [address], 9 12:53:39 Medication Orders None recorded. Patient TargetsNo targets recorded. Patient Instructions Encounter Date Encounter Id Patient Instructions Last Modified By Organization Details Last Modified Time 10/21/2018 [id number] blood in the urine: care instructions [email or web address] Not available 10/22/2018 12:53:39 Reason for Referral None Reported. Results Created Date Observation Date Name Description Value Unit Range Abnormal Flag Note LastModifiedBy Organization Detail LastModifiedTime 10/23/1910/22/2018 urina lysis , dipst ick, auto Leukocytes Negati ve Not Available [facility] [address] [place], [address], 10/22/2018 13:11:28 10/23/19 19 10/22/2018 urina lysis , dipst ick, auto Nitrite negati ve Not Available [facility] [address] [place], [address], 10/22/2018 13:11:28 10/23/19 19 10/22/2018 urina lysis , dipst ick, auto Urobilinogen 0.2 Not Available [facility] [address] [place], [address], 10/22/2018 13:11:28 10/23/19 19 10/22/2018 urina lysis , dipst ick, auto Protein Negati ve Not Available [facility] [address] [place], [address], 10/22/2018 13:11:28 10/23/19 19 10/22/2018 urina lysis , dipst ick, auto pH 6.0 Not Available [facility] [address] [place], [address], 10/22/2018 13:11:28 10/23/19 19 10/22/2018 urina lysis , dipst ick, auto Blood Large Not Available [facility] [address] [place], [address], 10/22/2018 13:11:28 10/23/19 19 10/22/2018 urina lysis , dipst ick, auto Specific [place] 1.020 Not Available [address] [place], [address], 10/22/2018 13:11:28 10/23/19 19 10/22/2018 urina lysis , dipst ick, auto Ketone Negati ve Not Available [address] [place], [address], 10/22/2018 13:11:28 10/23/19 19 10/22/2018 urina lysis , dipst ick, auto Bilirubin Negati ve Not Available [address] [place], [address], 10/22/2018 13:11:28 10/23/19 19 10/22/2018 urina lysis , dipst ick, auto Glucose Negati ve Not Available [address] [place], [address], 10/22/2018 13:11:28 10/22/19 19 10/21/2018 CT, abdom en + pelvi s, w/o contr ast PROCED URE: CT Stone Protoc ol DATE: 10:11 AM COMPAR ANTONIO:N ONE HISTOR Y: Hematu el TECHNI QUE: Withou t IV contra st FINDIN GS: CT Abdome n: The study was perfor med withou t IV contra st per orderi ng physic nery's reques t. The lack of IV contra st signif icantl y limits our evalua tion of the solid viscer al organs and bowel wall.N o obviou s mass is identi fied. No renal calcul us or hydron ephros is is seen. No abnorm al fluid collec tion or obviou s mass is seen on this noncon traste d study. No dilate d bowel is seen. No adenop athy is seen. CT Pelvis : No ureter al calcul us or hydrou reter is seen. No mass or abnorm al fluid collec tion is identi fied. No dilate d bowel is seen. The bladde r is unrema rkable in appear ance. Impres windy: Negati ve CT abdome n and pelvis withou t IV contra st Signed by Isaac booth MD 019 10:[address] scans are perfor med using dose optimi zation techni ques as approp riate to a perfor med exam includ ing automa sandip exposu re contro l and/or standa rdized protoc ols for target ed exams where dose is matche d to indica tion/r leland for exam/p atient size. [facility] [address] [facility] [place], [address], 10/21/2018 11:39:11 10/22/19 19 10/21/2018 CT, abdom en + pelvi s, w/o contr ast No observ ation record ed. [email or web address] - Paper Orders Only [address] [place] [address] [place], [address], 10/21/2018 12:54:56 Result Notes Documentation Provider Name and Address Organization Details Recorded Time Ct, Abdomen + Pelvis, W/o Contrast : PROCEDURE: CT Stone Protocol DATE:10/21/2018 10:11 AM COMPARISON:NONE HISTORY: Hematuria TECHNIQUE: Without IV contrast FINDINGS: CT Abdomen: The study was performed without IV contrast per ordering physician's request. The lack of IV contrast significantly limits our evaluation of the solid visceral organs and bowel wall.No obvious mass is identified. No renal calculus or hydronephrosis is seen. No abnormal fluid collection or obvious mass is seen on this noncontrasted study. No dilated bowel is seen. No adenopathy is seen. CT Pelvis: No ureteral calculus or hydroureter is seen. No mass or abnormal fluid collection is identified. No dilated bowel is seen. The bladder is unremarkable in appearance. Impression: Negative CT abdomen and pelvis without IV contrast Signed by Isaac Valverde MD 10/21/2018 10:[address] scans are performed using dose optimization techniques as appropriate to a performed exam including automated exposure control and/or standardized protocols for targeted exams where dose is matched to indication/reason for exam/patient size. Dayana Purcell [facility], [place] - [facility] 10/21/2018 11:39:11 Problems Name Problem SNOMED Code Status Onset Date Resolution Date Notes Provider Name and Address Organization Details Recorded Time Microscopic hematuria 204080801 Active 2018 Vance padilla, [place] - [facility] 9 14:37:26 History of calculus of kidney 415777057 Active 2018 Vance Rangel [facility], [place] - [facility] 9 14:37:27 Problem Notes None recorded. Procedures Surgical History Date Name Laterality Status Provider Name and Address Organization Details Recorded Time 10/22/19 19 Cystoscopy Female completed Vance Aaronbuck [place] - [facility] 10/21/2018 12:36:46 07/29/19 01 breast procedure completed Shyam Espinoza [place] - [facility] 10/21/2018 10:55:35 05/29/19 87 Hysterectomy completed Shyam Alexis [place] - [facility] 10/21/2018 10:39:02 05/29/19 83 section completed Abdiel Alexis [place] - [facility] 10/21/2018 10:38:44 Nl removal calculus completed Abdielmasha Alexis [place] - [facility] 10/21/2018 10:56:59 Other completed Machmasha Alexis [place] - [facility] 10/21/2018 10:57:27 Imaging Results None recorded. Procedure Notes None recorded. Medical Equipment None Reported. Allergies Allergen ID Allergen Name Allergen Category Reaction Reaction Severity Criticality Documentation Date Start Date Code Code System Note Provider Name and Address Organization Details Recorded Time Product containin g penicilli n (product) medicatio n anaphylax is Not available Not available 10/21/2018 32092 8001 SNOMED Shyam padilla, [place] - [facility] 9 10:26:46 Medications Name Sig Start Date Stop Date Status Note LastModified by Organization Details LastModified Time tizanidine 4 mg tablet Take 1 tablet every 6 hours by oral route. active Not Available Not Available No t Available trazodone 150 mg tablet Take 1 tablet twice a day by oral route. active Not Available Not Available No t Available estradiol 0.5 mg tablet Take 1 tablet every day by oral route. active Not Available Not Available No t Available Vitamin D2 1,250 mcg (50,000 unit) capsule Take 1 capsule every week by oral route. active Not Available Not Available No t Available levothyroxine active Not Available Not Available Not Available Vitals Date Recorded Body weight Heart rate Oxygen saturation Oxygen saturation in Arterial blood by Pulse oximetry Systolic And Diastolic Provider Name and Address Organization Details Last Updated DateTime 9 58112.1 1 g 76 /min 97 % 97 % 110/80 mm[Hg] Angy Neville [facility] 9 09:49:05 Social History Question Answer Notes LastModified by [employer] Details LastModified Time Tobacco Smoking Status [facility] 11:02:21 How Much Tobacco Do You Chew? None Information not available 10/21/2018 Which Illicit Or Recreational Drugs Have You Used? NONE Information not available 10/21/2018 Are You Willing To Accept Blood Or Blood Products In An Emergency? Yes Information not available 10/21/2018 Marital Status Infor mation not available 10/21/2018 What Was The Date Of Your Most Recent Tobacco Screening? 10/21/2018 Information n ot available 02/19/2019 How Many Years Have You Smoked Tobacco? 33 Information not available 10/21/2018 Sex: Unknown Functional Status Question Answer Note LastModified by [employer] Details LastModified Time What is your level of alcohol consumption? Occasional Information not available 10/21/2018 Are you currently employed? Yes Information not available 10/21/2018 Mental Status None recorded. Family History Relationship Description Onset Age of this Age Resolved Age Notes LastModified by Organization Details LastModified Time Mother Family history of malignant neoplasm 93 breast , throat [email or web address] ne Not available 10/21/2018 10:58:48 Mother Heart disease [email or web address] ne Not available 10/21/2018 10:59:31 Mother Hypertensive disorder [email or web address] ne Not available 10/21/2018 10:59:49 Mother Family history of stroke TIA [email or web address] ne Not available 10/21/2018 11:00:36 Father Diabetes mellitus 78 [email or web address] ne Not available 10/21/2018 10:59:12 Father Heart disease [email or web address] ne Not available 10/21/2018 10:59:31 Father Hypertensive disorder [email or web address] ne Not available 10/21/2018 10:59:49 Sister Family history of malignant neoplasm 63 BLADDE R CANCER [email or web address] ne Not available 10/21/2018 11:01:14 Medical History Condition Response Other Y Anxiety/Depression Y Bladder or Kidney Problems Y Thyroid Problems Y Gynecological HistoryNo gynecological history recorded. Obstetrics History GPAL:G 0 P 0 0 0 0 Past Encounters Encounter ID Performer Location Encounter Start Date Encounter Closed Date Diagnosis/Indication Diagnosis SNOMED-CT Code Diagnosis ICD10 Code Diagnosis IMO Codes Diagnosis Note [id number] MD [facility] [address] [place] [address] GL2 JESSICA [place] [id number] 10/21/2018 09:38:01 10/21/2018 10:34:23 History of calculus of kidney 186935985 Z87.442 R31.0 Microscopic hematuria 19 8907921 R31.21 Urinary bladder pain 158 67038 R39.82 Health Concerns Section Related Observation LastModified by Organization Detai ls LastModified Time None Recorded Concern Status LastModified by Organization Details LastModified Time None Recorded Advance Directives Directive None Recorded Payers Insurance Date Sequence Insurance Name Policy Number Policy Pool Covered Member ID Pool Member ID Guarantor Name 10/21/2018 1 [place] Emelia Etienne [id number] Emelia Etienne Notes Date Note Type Note Provider Name and Address Organization Details Recorded Time 10/21/2018 text/html 52 yo female pt presents today for microhematuria, bladder pressure and lower back pain (onset 10/10 to 10/11), and muscle spasms. The pt denies gross hematuria. The pt states it hurts to sit and stand, and her lower area hurts. The pt states she has had a lot of muscle spasms in her torso area. The pt states she has a urinary tract injury due to previous cath use, and she was cystoscopied negatively 20-[address] Gerardo in [facility]. The pt has a hx of kidney stones, and she states she has passed some kidney stones w/o having to go to the hospital. The pt states she has microscopic colitis, and she stays chronically dehydrated. She states she has tried going to the hospital for dehydration, but they won't hydrate her due to the risk of further diluting her low potassium, which is due to her microcolitis. She states her last potassium was 2.2, and it has never gotten above 3.2, even at the hospital. She states she has been admitted to the hospital a few times for low potassium. The pt states she recently quit smoking after a long time. Bruno Colon MD [address] [place] [address] [place], [address], [place] - [facility] 11/05/2018 22:17:51 OBGyn Episode No OBEpisode recorded.
--- OUTSIDE RECORDS SUMMARY | 2025-05-13 23:43 | XMS_ITS | Clinical Summary ---
Author Organization [facility] Address [address] [place] [address] Care Team Providers Care Long Distance Billing Operator Name Role Phone Sabas Barr MD Primary Care Provider [phone] Allergies Active Allergy Reactions Criticality Noted Date Comments Hydrocodone Itching 02/28/2016 Penicillins Swelling,Rash Low 02/28/2016 Medications traZODone (DESYREL) 150 MG tablet Take 150 mg by mouth at bedtime. Active estradiol (ESTRACE) 0.5 MG tablet Take 0.5 mg by mouth daily. Active levothyroxine (SYNTHROID, LEVOTHROID) 112 MCG tablet Take 112 mcg by mouth daily. Active tiZANidine (ZANAFLEX) 4 MG tablet Take 4 mg by mouth every 6 (six) hours as needed. Active Active Problems Problem Noted Date Diagnosed Date Microscopic colitis 02/28/2016 Social History Tobacco Use Types Packs/Day Years Used Date Smoking Tobacco: Every Day Cigarettes 1 30 Smokeless Tobacco: Never Tobacco Cessation:Ready to Q uit: Yes Alcohol Use Standard Drinks/Week Comments Yes 1 [...] on file Sexual Orientation Not on file Last Filed Vital Signs Vital Sign Reading Time Taken Comments Blood Pressure 114/78 02/28/2016 12:31 PM CDT Pulse 83 02/28/2016 12:31 PM CDT Temperature 36.1 C (97 F) 02/28/2016 12:31 PM CDT Respiratory Rate - - Oxygen Saturation - - Inhaled Oxygen Concentration - - Weight 72.5 kg (159 lb 12.8 oz) 016 12:31 PM CDT Height 160 cm (5' 3 ) 02/28/2016 12:31 PM CDT Body Mass Index 28.31 02/28/2016 12:31 PM CDT Plan of Treatment Health Maintenance Due Date Last Done Comments Annual Wellness Exam [address] Colonography 1963 Colorectal Cancer Screening 1963 FIT DNA 1963 FIT 1963 Hepatitis C Screening 1963 SIGMOIDOSCOPY 1963 Anxiety Screening 1971 HIV Screening 12/11/1978 Depression Screening 12/11/1981 TDAP/DTaP/TD Vaccines (1 - Tdap) 12/11/1982 Lipid Panel 2003 Zoster Vaccine (1 of 2) 12/11/2013 Mammogram 05/11/2017 05/11/2015 Pneumococcal Vaccine 50+ (2 of 2 - PCV) 02/11/2021 02/12/2020 Respiratory Syncytial Virus (RSV) Immunization - pts and pts aged 60 yrs+ (1 - Risk 60-74 years 1-dose series) 2023 COVID-19 Vaccine (1 - 2023-2 5 season) 2025 Influenza Series (#1) 2025 07/23/2017 Hepatitis B Vaccine Aged Out No longe r eligible based on patient's age to complete this topic Meningococcal B Vaccine Aged Out No l onger eligible based on patient's age to complete this topic Insurance 2015 marvin [place], [place] [id number] MEDICARE PART A & B Care Teams Long Distance Billing Operator Relationship Specialty Start Date End Date Sabas Barr MD [address] [place], [place] [id number] PCP - General Family Medicine 04/22/18
--- OUTSIDE RECORDS SUMMARY | 2025-05-13 23:43 | XMS_ITS | Clinical Summary ---
Author Organization [facility] Address [address] [place] [address] Phone Care Team Providers Care Weaving Instructor Name Role Phone Preston Freitas MD Primary Care Provider + Allergies Active Allergy Reactions Criticality Noted Date Comments Midazolam Shortness of Breath/Wheezing High 03/10/2023 Penicillin Shortness of Breath/Wheezing High 03/10/2023 Hives, shortness of breath Medications No known medications Active Problems Problem Noted Date Diagnosed Date Left temporal headache 03/10/2023 Visual disturbance 03/10/2023 Acute cystitis with hematuria 03/09/2023 Sudden onset of severe headache 03/09/2023 Encounters Date Type Department Care Team Description 03/17/2025 3:00 PM CDT Office Visit [facility] [place] [facility] [address] [place] [address] Shyanne Blair DO Breast pain (Primary Dx); Mass of lower outer quadrant of left breast 03/03/2025 External Device Data [facility] ABSTRACTION Provider, Abstract 03/02/2025 External Device Data [facility] ABSTRACTION Provider, Abstract 02/23/2025 Abstract [facility] [place] [facility] [address] [place] [address] Provider, Abstract from Last 3 Months Social History Tobacco Use Types Packs/Day Years Used Date Smoking Tobacco: Every Day Cigarettes Tobacco Cessation:Ready to Q uit: Not Asked; Counseling Given: Not Answered Feeling Safe Answer Date Recorded Are you in a relationship wi th someone who hurts you emotionally and/or physically? No 03/09/2023 Food Insecurity Answer Date Recorded Social/Environmental Concerns No concerns Transportation Needs Answer Date Record ed Social/Environmental Concerns No concerns Housing Stability Answer Date Recorded Social/Environmental Concerns No concerns Utility Needs Answer Date Recorded Social/Environmental Concerns No concerns Comments Unknown Sex and Gender Information Value Date Recorded Sex Assigned at Not on file Legal Sex Female 4:09 PM CDT Gender Identity Not on file Sexual Orientation Not on file Last Filed Vital Signs Vital Sign Reading Time Taken Comments Blood Pressure 108/68 03/17/2025 2:45 PM CDT Pulse 80 03/17/2025 2:45 PM CDT Temperature 36.4 C (97.6 F) 03/10/2023 9:00 AM CDT Respiratory Rate 20 03/10/2023 9:00 AM CDT Oxygen Saturation 96% 03/17/2025 2:45 PM CDT Inhaled Oxygen Concentration - - Weight 77.1 kg (170 lb) 03/17/2025 2:45 PM CDT Height 162.6 cm (5' 4 ) 03/17/2025 2:45 PM CDT Body Mass Index 29.18 03/17/2025 2:45 PM CDT Plan of Treatment Health Maintenance Due Date Last Done Comments DTAP/TDAP/TD VACCINES (1 - Tdap) 12/11/1982 FIT-DNA Q 3 years 12/11/2008 FIT/FOBT Q 1 year 12/11/2008 Flex Sig/CT Colonography Q 5 years 12/11/2008 ZOSTER VACCINE (1 of 2) 12/11/2013 BREAST CANCER SCREENING 04/11/2019 04/11/2018, 05/11 RSV VACCINE (60+ or ) (1 - Risk 60-74 years 1-dose series) 2023 INFLUENZA VACCINE (#1) 2025 9, 05/16/2018, 07/23/2017, Additional history exists COVID-19 Vaccine (4 - 2024-2 6 season) 2025 08/02/2021, 10/26/2020, 09/27/2020 COLORECTAL SCREENING 04/08/2025 04/08/2015 Colorectal Cancer Screening 04/08/2025 Pre-Diabetes and Diabetes Screening 03/10/2026 03/10/2023 Procedures Procedure Name Priority Date/Time Associated Diagnosis Comments HEMOGLOBIN A1C Routine 03/10/2023 9:54 AM CDT from Last 3 Months or Most Recently Relevant to Health Maintenance Results * HEMOGLOBIN A1C (03/10/2023 9:54 AM CDT) HEMOGLOBIN A1C 5.3 <=5.6 % 03/11/2023 10:01 AM CDT [facility] EST. AVG GLUCOSE, A1C 105 mg/dL 03/11/2023 10:01 AM CDT [facility] Blood Venipuncture / Unknown 03/10/2023 9:54 AM CDT 03/10/2023 10:09 AM CDT Narrative [facility] - 03/11/2023 10:01 AM CDT HGB A1C INTERPRETATION NORMAL: <5.7% PRE-DIABETES: 5.7 - 6.4% DIABETES: 6.5% OR GREATER us Antionette Reina MD CHEMISTRY ORDERABLES Final Resu lt [facility] CLIA # [id number] [address] [id number] [place] [address] from Last 3 Months or Most Recently Relevant to Health Maintenance Insurance [facility] Advance Directives For more information, please contact: [phone] * Full Code (Latest Code Status on File) Date Activated Date Inactivated Comments 03/09/2023 7:43 PM 03/10/2023 8:40 PM Care Teams Weaving Instructor Relationship Specialty Start Date End Date Preston Freitas MD [address] [place] [phone] PCP - General Family Practice 03/09/23
--- OUTSIDE RECORDS SUMMARY | 2025-05-13 23:43 | XMS_ITS | Patient Health Record ---
Author Organization [facility], [facility] Address [address] [place] [address] Care Team Providers Care Corporate Compliance Director Name Role Phone Preston Freitas MD Primary Care Provider César TANYA Workman Unavailable [phone] Allergies Allergen (clinical drug ingredient) Drug/Non Drug Allergy documented on EMR Reaction Allergy Type Onset Date Status lactose Lactose (Intolerance) Unknown Drug Allergy Active midazolam Midazolam combative Drug Allergy Active Penicillin anaphylaxis Drug Allergy Acti ve Reason For Referral No Information Medications Medication SIG (Take, Route, Frequency, Duration) Notes Start Date End Date Status Estradiol 0.5 MG 1 tablet Orally Once a day Active Baclofen 10 MG 1 tablet Orally thre e times a day Active Levothyroxine Sodium 75 MCG 1 tablet in the morning on an empty stomach Orally Once a day Active Evening [place] Oil Active Gabapentin 100 MG 1 capsule Orally Onc e a day Active Vitamin B Complex Ac tive Vitamin K2 100 MCG 2 capsules Orally daily Active Vitamin D3 1.25 MG (58843 UT) 1 capsule Orally once weekly Active traZODone HCl 150 MG 1 tablet at bedtime Orally Once a day Active ZyrTEC 10 MG 1 tablet Orally Once a day Active Social History Tobacco Use: Social History Observation Description Date Details (start date - stop date) Unknown Tobacco Control (Standard) Question Answer Notes Tobacco use: Uses tobacco in other forms Additional Findings: Tobacco user e-cigarette AUDIT-C (Standard) Question Answer Notes Did you have a drink contain ing alcohol in the past year? Yes How often did you have six o r more drinks on one occasion in the past year? Never (0 point) How many drinks did you have on a typical day when you were drinking in the past year? 1 or 2 drinks (0 point) How often did you have a dri nk containing alcohol in the past year? 2 to 4 times a month (2 points) Points 2 Interpretation Negative Plan Of Treatment No Information Insurance Providers Payer Name Payer Address Payer Phone Subscriber Number Group Number Insured Name Patient Relationship to Insured Coverage Start Date Coverage End Date [employer] Medicare Advantage PPO [address] [address] [place], [place] [id number] Emelia Etienne Self - patient is the insured Medical (General) History Medical History History ICD Code hematuria Anxiety Osteoarthritis Degenerative Disc Disease Depression Colitis Hypothyroid Gross Hematuria Stress Incontinence Kidney stones Nocturia Urinary tract infection Migraines Surgical History Surgery Date(Month/Year) ALEXX with Appendectomy 06/10/1987 Breast Reduction 2000 Sinus surgery with polypectomy 2022 Hospitalization History Reason Date(Month/Year) Migraine 2022 see prior sx hx
[2025-05-14 00:04] VITALS: BP 135/72; PULSE 77; RESP 18; TEMP 36.9; O2SAT 99; BMI 28.3
[2025-05-14 00:16] VITALS: BP 124/83; PULSE 68; O2SAT 100
--- NOTE | 2025-05-14 00:27 | W.ED.ANIMALB ---
HPI - Animal Bite General: Chief Complaint: Animal Bite Stated Complaint: Cat scratched 1 hr ago swelling Time Seen by Provider: 05/14/25 00:08 Source: patient Mode of arrival: ambulatory Limitations: no limitations History of Present Illness: Patient is a 59-year-old female who presents to the emergency department complaining of a cat scratch to her face that occurred 1 hour ago. States that she has had systemic infection from a cat scratch in the past which she states was due to her not get checked out soon enough, and she is here for prophylactic purposes. States she cleansed the area to her face with soap and water thoroughly, also has a couple scratches to her side that she bandaged. Noting some swelling to the upper lip. No pain reported at this time. States that her vaccination is up-to-date. Also notes that the cats that scratched her were her own personal cats and they are up-to-date on their vaccinations. MD complaint: other (cat scratch) Onset (ago): hour(s) (1) Animal: cat Description of animal: household pet and immunizations UTD Mechanism: scratch Location: face and abdomen Associated symptoms: Deny chills, fever(s) or headache(s) Related Data Home Medications ?Medication ?Instructions ?Recorded ?Confirmed baclofen 10 mg tablet 10 mg PO TID 10/15/19 06/16/24 estradiol 0.5 mg tablet 0.5 mg PO DAILY 10/15/19 06/16/24 trazodone 150 mg tablet 100 mg PO .AT BEDTIME 07/14/20 06/16/24 levothyroxine 112 mcg tablet 112 mcg PO DAILY 07/04/21 06/16/24 (Synthroid) cetirizine 10 mg capsule (Zyrtec) 10 mg PO DAILY PRN Allergic 12/13/21 06/16/24 Symptoms pseudoephedrine HCl 30 mg capsule 30 mg PO Q6H 12/13/21 06/16/24 (abuse-resistant) (Nasal Decongestant (pseudoephedrine)) B complex-lysine oral liquid ea PO 03/16/24 06/16/24 cholecalciferol (vitamin D3) 1,250 PO 03/16/24 06/16/24 mcg (50,000 unit) capsule vitamin K2 100 mcg capsule 100 mcg PO DAILY 03/16/24 06/16/24 Previous Rx's ?Medication ?Instructions ?Recorded albuterol sulfate 90 mcg/actuation 2 puff inhalation Q6H PRN 11/17/19 aerosol inhaler (ProAir HFA) shortness of breath or wheezing #8.5 grams promethazine 25 mg rectal 25 mg SD Q6H PRN nausea and 10/30/22 suppository vomiting #12 ea triamcinolone acetonide 55 mcg 2 spray intranasal DAILY 12 months 11/14/22 nasal spray aerosol (Nasacort #16.9 mL Allergy) [id number] 1 cap PO Q6H PRN pain #30 caps 05/18/24 50 mg-300 mg-40 mg capsule (Fioricet) prednisone 20 mg tablet 20 mg PO DAILY #15 tabs 05/21/24 ciprofloxacin HCl 500 mg tablet 500 mg PO BID 7 days #14 tabs 05/14/25 (Cipro) clindamycin HCl 300 mg capsule 300 mg PO Q8H 7 days #21 caps 05/14/25 (Cleocin HCl) Allergies Allergy/AdvReac Type Severity Reaction Status Date / Time Penicillins AdvReac Severe ALGY-Anaphy Verified 07/13/24 13:29 laxis fluticasone AdvReac Mild UNKNOWN Verified 07/13/24 13:29 ketorolac (From Toradol) AdvReac Mild UNKNOWN Verified 07/13/24 13:29 midazolam (From Versed) AdvReac Mild UNKNOWN Verified 07/13/24 13:29 Review of Systems General: Reports: 10 or more systems reviewed and unremarkable except in HPI and below Const: Denies: fever(s) or chills Card: Denies: chest pain Resp: Denies: dyspnea GI: Denies: abdominal pain, nausea, vomiting or diarrhea Musc: Denies: extremity pain or joint pain Skin/Breast: Reports: skin pain, skin tenderness, skin swelling (upper lip) and new lesions (cat scratch to face, side); Denies: rash Neuro: Denies: headache(s) PFSH ED PFSH: Medical History Chronic cystitis with hematuria Major depressive disorder PTSD (post-traumatic stress disorder) Insomnia Osteoarthritis Muscle cramps Cindi's thyroiditis Nasal polyps Inflammatory bowel disease Chronic diarrhea History of renal stone Surgical History History of sinus surgery History of salpingo-oophorectomy H/O: hysterectomy H/O tubal ligation History of appendectomy History of bilateral breast reduction surgery H/O section Family History Other CAD (coronary artery disease) Cancer Diabetes Multiple sclerosis Social History Smoking and tobacco/nicotine status: former use of tobacco/nicotine Alcohol intake: current Alcohol intake frequency: holidays/special occasions only Substance/Drug Use: never Physical Exam Const: COMMON NORMALS: no acute distress, average body habitus, patient oriented x3, no limitations, healthy appearing, alert and well nourished HENMT: COMMON NORMALS: normocephalic and atraumatic HEAD & SCALP: normocephalic and atraumatic OTHER: 2 small superficial cat scratch lesions to the mouth. There is warmth to the upper lip with no active bleeding, appears clean and noncontaminated. Also 1 to the lower lip. These are not through and through lacerations. Neck/C-Spine: COMMON NORMALS: full ROM, no lymphadenopathy, supple and no meningeal signs Extremity: COMMON NORMALS: full ROM and capillary refill normal Neuro: COMMON NORMALS: patient oriented x3 SENSORIUM/ORIENTATION: Yes alert MENINGEAL SIGNS: Yes no meningeal signs Skin: COMMON NORMALS: turgor normal NARRATIVE SKIN EXAM: Multiple superficial scratch abrasions to the right side GENERAL SKIN EXAM: turgor normal Course Vital Signs: Vital signs: Vital Signs Temperature 98.4 F 05/14/25 00:04 Pulse Rate 68 05/14/25 00:16 Respiratory Rate 18 05/14/25 00:04 Blood Pressure 124/83 05/14/25 00:16 Pulse Oximetry 100 05/14/25 00:16 MDM - Animal Bite Medical Decision Making This patient presented after being scratched by her domesticated cats. States she is here prophylactically as she has a history of cat scratch causing sepsis in the past. The wounds had been thoroughly irrigated prior to her coming to the ED, they appear clean and noncontaminated at this time. She will be started on commendation of clinda and Cipro as she is allergic to Augmentin. Her tetanus was up-to-date already. Otherwise no further action necessary in the ED at this time. No radiology studies performed this visit Discharge Plan Discharge Patient Disposition: Home Clinical Impression: Cat scratch Condition: Stable Prescriptions: New clindamycin HCl [Cleocin HCl] 300 mg capsule 300 mg PO Q8H 7 Days Qty: 21 0RF ciprofloxacin HCl [Cipro] 500 mg tablet 500 mg PO BID 7 Days Qty: 14 0RF No Action albuterol sulfate [ProAir HFA] 90 mcg/actuation HFA aerosol inhaler 2 puff INHALATION Q6H PRN (Reason: shortness of breath or wheezing) Qty: 8.5 0RF levothyroxine [Synthroid] 112 mcg tablet 112 mcg PO DAILY estradiol 0.5 mg tablet 0.5 mg PO DAILY baclofen 10 mg tablet 10 mg PO TID trazodone 150 mg tablet 100 mg PO .AT BEDTIME triamcinolone acetonide [Nasacort Allergy] 55 mcg aerosol,spray 2 spray intranasal DAILY 360 Days Qty: 16.9 12RF Rx Instructions: administer into each nostril B complex-lysine Liquid PO cholecalciferol (vitamin D3) 1,250 mcg (50,000 unit) capsule PO vitamin K2 100 mcg capsule 100 mcg PO DAILY Nasal Decongestant (pseudoeph) 30 mg capsule (abuse-resistant) 30 mg PO Q6H Zyrtec 10 mg capsule 10 mg PO DAILY PRN (Reason: Allergic Symptoms) [id number] [Fioricet] 50-300-40 mg capsule 1 cap PO Q6H PRN (Reason: pain) Qty: 30 0RF prednisone 20 mg tablet 20 mg PO DAILY Qty: 15 0RF Rx Instructions: 60MG for 3 days 40MG for 2 days 20MG for 2 days promethazine 25 mg suppository 25 mg SD Q6H PRN (Reason: nausea and vomiting) Qty: 12 2RF Discharge Orders: Discharge ED (Routine); Ordered 05/14/25 Ordered By: Raheel Paredes Referrals: Preston Freitas MD [Primary Care Provider, Family Practice] Patient Instructions: Patient Portal & Kristen Instructions Activity Restrictions/Additional Instructions: Cat Scratch Discharge Instructions Diagnosis: Cat scratch injuries to the face (upper/lower lip, right side), small lip hematoma. History of systemic infection from previous cat scratch. Wound Care: - Gently clean the affected areas twice daily with mild soap and running water for at least 20 minutes to reduce infection risk. - Avoid picking at scabs or scratching the wounds. - If a dressing is applied, change it daily or if it becomes wet or dirty. Hydrocolloid dressings may be used for lip wounds to promote healing and reduce infection risk. - Monitor for signs of infection: increased redness, swelling, warmth, pus, or worsening pain. Antibiotics: - Take clindamycin 300 mg by mouth every 8 hours for 7 days and ciprofloxacin 500 mg by mouth every 12 hours for 7 days, as prescribed. Complete the full course even if symptoms improve. - Contact the clinic if you experience severe diarrhea, rash, or other side effects. Lip Hematoma: - Apply a cold compress to the lip for 10?15 minutes every few hours during the first 24?48 hours to reduce swelling. - Avoid trauma to the area. If the hematoma enlarges, becomes very painful, or interferes with lip movement, seek medical attention. Infection Prevention: - Watch for fever, chills, or feeling generally unwell, which may indicate systemic infection. - Report any new or worsening symptoms promptly. Rabies and Tetanus: - Rabies risk is low for domestic cats, but confirm the cat?s vaccination status. If the cat?s rabies status is unknown, contact the clinic for further evaluation. - Ensure tetanus immunization is up to date. If not, arrange for vaccination. Follow-Up: - Schedule a follow-up appointment as directed. - If you notice any difficulty breathing, swallowing, or speaking, seek emergency care. General Advice: - Avoid contact with the cat until wounds are healed. - Practice good hand hygiene after touching the wound or dressings. When to Seek Immediate Care: - Rapidly spreading redness or swelling - Severe pain or inability to open mouth - Signs of allergic reaction (hives, difficulty breathing) - Persistent or worsening bleeding If you have any questions or concerns, contact your healthcare provider. Print Language: Czech Coding Level of Care Code ED Wireless Communications Engineer for Luis Weaver
[2025-05-14 00:39] VITALS: BP 117/75; PULSE 64; O2SAT 97
== END 2025-05-14 00:40 | disposition home or self-care (01) ==
PROVIDERS: Emergency Provider Physician Assistant; PCP Family Medicine
DX: S00.511A Abrasion of lip, initial encounter (principal); W55.03XA Scratched by cat, initial encounter; Z87.891 Personal history of nicotine dependence
CPT/HCPCS: 99283; J9999

== ENCOUNTER 2025-05-26 09:04 | Outpatient (CLI) | payer MEDICARE, SELFPAY ==
--- NOTE | 2025-05-26 09:12 | US_ITS ---
WS: [id number] RIGHT UPPER QUADRANT ULTRASOUND HISTORY: RUQ PAIN COMPARISON: None available. Liver: 15.0 cm in length. Normal size liver and echogenicity. No bile duct dilatation or mass. Portal Vein: Normal hepatopetal flow with monophasic waveform. Gallbladder: Normally distended gallbladder. There is a single stone identified within the gallbladder. No wall thickening or pericholecystic fluid. CBD: 0.4 cm Pancreas: Normal size and echogenicity. Right kidney: 10.1 cm in length. Normal size and echogenicity. No hydronephrosis or mass. Aorta and IVC: Unremarkable abdominal aorta and IVC. No ascites. US/US gall bladder [id number] IMPRESSION: 1. Cholelithiasis without evidence for acute cholecystitis. 2. Normal liver.
== END 2025-05-26 09:05 | disposition home or self-care (01) ==
PROVIDERS: PCP Family Medicine; Visit Provider Nurse Practitioner Family
DX: R10.11 Right upper quadrant pain (principal); K80.20 Calculus of gallbladder without cholecystitis without obstruction
CPT/HCPCS: 76705

== ENCOUNTER → 2025-05-27 09:57 | Outpatient (BNVA) | payer MEDICARE, SELFPAY | PROVIDERS: PCP Family Medicine; Visit Provider Student in an Organized Health Care Education/Training Program | DX: Z12.11 Encounter for screening for malignant neoplasm of colon (principal); K80.20 Calculus of gallbladder without cholecystitis without obstruction | CPT/HCPCS: 99213 ==